=== PATIENT | female | born 1940 | race Caucasian/White ===

== ENCOUNTER 2017-01-20 09:33 | Inpatient (IN) | payer MEDICARE ==
[2017-01-20] MEDS ORDERED: Acetaminophen TAB* 325 MG ONE (10:19)
[2017-01-20] MEDS ORDERED: Acetaminophen TAB* 325 MG PO ONE (10:19)
--- NOTE | 2017-01-20 11:07 | RAD ---
INDICATION: Head injury. COMPARISON: Comparison is made with a prior CT of the brain from September 04, 2016. TECHNIQUE: Contiguous axial sections of the brain were obtained from the skull base to the vertex without contrast. FINDINGS: The ventricles, cisterns and sulci are enlarged consistent with diffuse atrophy. There is an old lacunar infarct present in the left periventricular white matter adjacent to the body of the ventricle which is new from the prior exam. There are small areas of decreased attenuation present in the subcortical and periventricular white matter most consistent with mild chronic small vessel ischemic changes. No other focal abnormality is seen. There is no evidence for hemorrhage. There is soft tissue swelling in the scalp adjacent to the posterior right frontal bone. No fracture is seen. The visualized portion of the paranasal sinuses and mastoid air cells appear clear. IMPRESSION: 1. NO EVIDENCE FOR ACUTE INTRACRANIAL ABNORMALITY. 2. OLD LACUNAR INFARCT AND MILD CHRONIC SMALL VESSEL ISCHEMIC CHANGES.
--- NOTE | 2017-01-20 11:14 | RAD ---
INDICATION: Pain post fall. Cervical spine cleared clinically. COMPARISON: September 04, 2016 CT TECHNIQUE: Multidetector CT images foramen magnum to lung apices without contrast. Multiplanar reformation. REPORT: Mild kyphosis from C2 through C6 without change compared with the prior exam. 1.5 mm degenerative retrolisthesis at C5-C6 without change. Negative for facet subluxation at any level. Negative for vertebral body or posterior element fracture at any level. Negative for paravertebral hematoma. At C5-C6 there is a small to moderate dorsal disc osteophyte complex which results in mild acquired central canal stenosis without gross change. Uncinate process spurring and facet joint osteoarthritis results in moderate LEFT foraminal stenosis without change. IMPRESSION: Negative for traumatic cervical spine injury.
--- NOTE | 2017-01-20 12:15 | RAD ---
Indication: Right hip pain after fall. 2 views of the right hip and an AP view of the pelvis demonstrates a subcapital fracture of the right femur. There is impaction noted. IMPRESSION: Subcapital fracture of the right hip with impaction.
[2017-01-20 12:49] LABS: Urine Bilirubin Negative (Negative); Urine Glucose Negative (Negative); Urine Nitrite Negative (Negative)
[2017-01-20] MEDS ORDERED: Morphine INJ* 4 MG/ML 1 ML SYRINGE IV ONE (12:50)
[2017-01-20] MEDS ORDERED: Ondansetron INJ* 2 MG/ML VIAL IV ONE (12:50)
--- NOTE | 2017-01-20 13:01 | RAD ---
Indication: RIGHT hip fracture. Comparison: September 04, 2016 Technique: Supine AP 1250 hours Report: Elevated lung volumes and rarefaction of the interstitial markings. Bilateral nipple shadows noted. No focal pulmonary lesion, alveolar consolidation, pleural effusion, pneumothorax. The heart, pulmonary vasculature, and mediastinal contours are unremarkable. IMPRESSION: Stigmata of chronic obstructive pulmonary disease and emphysema. No evidence for acute intrathoracic disease.
[2017-01-20] MEDS: NS 0.9% 1000 ML* 1,000 ML IV SCH ×2 (13:08→16:38)
[2017-01-20 13:15] LABS: Hematocrit 27 % (35-47); Hemoglobin 9.6 g/dl (12.0-16.0); Mean Corpuscular HGB Conc 36 g/dl (31-36); Mean Corpuscular Hemoglobin 35 pg (27-31); Mean Corpuscular Volume 99 fL (80-97); Mean Platelet Volume 7 um3 (7.4-10.4); Red Blood Count 2.73 10^6/ul (4.0-5.4); Red Cell Distribution Width 18 % (10.5-15)
[2017-01-20 13:31] LABS: ALT 17 U/L (7-52); AST 18 U/L (13-39); Alkaline Phosphatase 82 U/L (34-104); Anion Gap 7 mmol/L (2-11); BUN/Creatinine Ratio 22.6 (8-20); Blood Urea Nitrogen 12 mg/dL (6-24); CO2 Carbon Dioxide 28 mmol/L (22-32); Calcium 9.4 mg/dL (8.6-10.3); Chloride 102 mmol/L (101-111); EGFR African American 144.6 (>60); EGFR Non-African American 112.5 (>60); Globulin 2.9 g/dL (2-4); Glucose 98 mg/dL (70-100); Potassium 3.7 mmol/L (3.5-5.0); Sodium 137 mmol/L (133-145); Total Protein 6.9 g/dL (6.4-8.9)
--- NOTE | 2017-01-20 13:57 | ED ---
Ronal Hernandez Billy, scribed for Tal Mcclendon MD on 01/20/17 at 1008 . Lower Extremity - HPI Summary HPI Summary: Patient is a 76 year-old female coming to [facility] for evaluation of a fall this morning at 0845. Patient was walking when she lost balance; denies any LOC or syncope. 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 She has had multiple recent falls in the last several days. Patient at this time complains of right hip pain, but has no pain at rest. Pain is worse with movement. She also hit her right forehead on the floor. - History of Current Complaint Chief Complaint: EDExtremityLower Stated Complaint: FALL HIP PAIN Time Seen by Provider: 01/20/17 09:42 Hx Obtained From: Patient Mechanism Of Injury: Fall From A Standing Position Onset of Pain: Immediate Onset/Duration: Hours Severity Initially: Moderate Severity Currently: Moderate Timing: Constant Location: Is Discrete @ - right hip Associated Signs And Symptoms: Positive: Negative Aggravating Factor(s): Movement Alleviating Factor(s): Rest - Allergies/Home Medications Allergies/Adverse Reactions: Allergies Allergy/AdvReac Type Severity Reaction Status Date / Time No Known Allergies Allergy Verified 01/20/17 10:32 Home Medications: Home Medications Aspirin EC Low Dose* [Ecotrin EC Low Dose 81 MG*] 1 tab PO .EVERY EVENING [History Confirmed 01/20/17] Atorvastatin* [Lipitor 80 MG*] 1 tab PO . EVERY EVENING 01/20/17 [History Confirmed 01/20/17] Enalapril TAB* [Vasotec TAB*] 2.5 mg PO DAILY 01/20/17 [History Confirmed ] Hydroxychloroquine TAB* [Plaquenil TAB*] 1 tab PO BID 01/20/17 [History Confirmed 01/20/17] Methylphenidate TAB* [Ritalin TAB*] 2.5 mg PO BID 01/20/17 [History Confirmed ] PARoxetine HCL TAB* [Paxil TAB*] 1 tab PO DAILY 01/20/17 [History Confirmed 02/02] Ranitidine TAB (NF) [Zantac TAB (NF)] 1 tab PO DAILY 01/20/17 [History Confirmed 01/20/17] PMH/Surg Hx/FS Hx/Imm Hx Endocrine/Hematology History: Reports: Hx Blood Transfusions - 2000, possibly Denies: Hx Diabetes Cardiovascular History: Reports: Hx Hypertension Denies: Hx Pacemaker/ICD Respiratory History: Denies: Hx Asthma, Hx Chronic Obstructive Pulmonary Disease (COPD) History: Denies: Hx Renal Disease Sensory History: Reports: Hx Cataracts, Hx Contacts or Glasses, Hx Deafness - unknown which ear Denies: Hx Glaucoma, Hx Hearing Aid Opthamlomology History: Reports: Hx Cataracts, Hx Contacts or Glasses Denies: Hx Glaucoma Neurological History: Reports: Hx Headaches, Hx Peripheral Neuropathy, Hx Transient Ischemic Attacks (TIA), Other Neuro Impairments/Disorders - Ruptured aneurysm Psychiatric History: Reports: Hx Depression Denies: Hx Panic Disorder - Cancer History Cancer Type, Location and Year: Basal cell carcinoma several over the years Hx Chemotherapy: No Hx Radiation Therapy: No - Surgical History Surgery Procedure, Year, and Place: peg tube placed 2000 r/t stroke. CATARACTS. LEFT ELBOW FRACTURE Hx Anesthesia Reactions: No Infectious Disease History: Reports: Hx Tuberculosis - as a child Denies: Traveled Outside the [place] in Last 30 Days - Family History Known Family History: Positive: Cardiac Disease - Social History Alcohol Use: Daily Alcohol Amount: every night-2-3 glasses wine Substance Use Type: Reports: None Smoking Status (MU): Former Smoker Type: Cigarettes Have You Smoked in the Last Year: No Review of Systems Positive: Arthralgia Positive: Weakness All Other Systems Reviewed And Are Negative: Yes Physical Exam Triage Information Reviewed: Yes Vital Signs On Initial Exam: Initial Vitals Temp Pulse Resp BP Pulse Ox 99.9 F 77 16 180/105 98 01/20/17 09:52 01/20/17 09:52 01/20/17 09:52 01/20/17 09:52 01/20/17 09:52 Vital Signs Reviewed: Yes Appearance: Positive: Well-Appearing, No Pain Distress Skin: Positive: Warm, Skin Color Reflects Adequate Perfusion, Dry Head/Face: Positive: Other - Ecchymosis and swelling of the right church. Eyes: Positive: EOMI, MOON ENT: Positive: Normal ENT inspection Neck: Positive: Supple, Nontender Respiratory/Lung Sounds: Positive: Clear to Auscultation, Breath Sounds Present Cardiovascular: Positive: RRR Abdomen Description: Positive: Nontender, Soft Musculoskeletal: Positive: Pain @ - There is ecchymosis of the right hip. It is firm and tender to touch, but she is able to move all extremities., Other - Chronic right-sided motor weakness which the patient states is secondary to CVA in August 2016. Right arm is mildly contracted. Neurological: Positive: Sensory/Motor Intact, Alert, Oriented to Person Place, Time Psychiatric: Positive: Affect/Mood Appropriate Diagnostics - Vital Signs Vital Signs Temp Pulse Resp BP Pulse Ox 01/20/17 09:52 99.9 F 77 16 180/105 98 - Laboratory Lab Results: Lab Results 01/20/17 01/20/17 01/20/17 Range/Units 10:26 12:58 12:58 WBC 8.0 (3.5-10.8) 10^3/ul RBC 2.73 L (4.0-5.4) 10^6/ul Hgb 9.6 L (12.0-16.0) g/dl Hct 27 L (35-47) % MCV 99 H (80-97) fL MCH 35 H (27-31) pg MCHC 36 (31-36) g/dl RDW 18 H (10.5-15) % Plt Count 143 L (150-450) 10^3/ul MPV 7 L (7.4-10.4) um3 Neut % (Auto) 82.2 (38-83) % Lymph % (Auto) 8.8 L (25-47) % [place] % (Auto) 8.6 (1-9) % Eos % (Auto) 0.1 (0-6) % Baso % (Auto) 0.3 (0-2) % Absolute Neuts (auto) 6.6 (1.5-7.7) 10^3/ul Absolute Lymphs (auto) 0.7 L (1.0-4.8) 10^3/ul Absolute Monos (auto) 0.7 (0-0.8) 10^3/ul Absolute Eos (auto) 0 (0-0.6) 10^3/ul Absolute Basos (auto) 0 (0-0.2) 10^3/ul Absolute Nucleated RBC 0.01 10^3/ul Nucleated RBC % 0.1 INR (Anticoag Therapy) 0.97 (0.89-1.11) APTT 25.5 L (26.0-36.3) seconds Sodium (133-145) mmol/L Potassium (3.5-5.0) mmol/L Chloride (101-111) mmol/L Carbon Dioxide (22-32) mmol/L Anion Gap (2-11) mmol/L BUN (6-24) mg/dL Creatinine (0.51-0.95) mg/dL Est GFR ( Amer) (>60) Est GFR (Non-Af Amer) (>60) BUN/Creatinine Ratio (8-20) Glucose (70-100) mg/dL Calcium (8.6-10.3) mg/dL Total Bilirubin (0.2-1.0) mg/dL AST (13-39) U/L ALT (7-52) U/L Alkaline Phosphatase (34-104) U/L Total Protein (6.4-8.9) g/dL Albumin (3.2-5.2) g/dL Globulin (2-4) g/dL Albumin/Globulin Ratio (1-3) Urine Color Yellow Urine Appearance Clear Urine pH 6.0 (5-9) Ur Specific [place] 1.014 (1.010-1.030) Urine Protein Negative (Negative) Urine Ketones Negative (Negative) Urine Blood Negative (Negative) Urine Nitrate Negative (Negative) Urine Bilirubin Negative (Negative) Urine Urobilinogen Negative (Negative) Ur Leukocyte Esterase Negative (Negative) Urine Glucose Negative (Negative) Blood Type Antibody Screen 01/20/17 01/20/17 Range/Units 12:58 12:58 WBC (3.5-10.8) 10^3/ul RBC (4.0-5.4) 10^6/ul Hgb (12.0-16.0) g/dl Hct (35-47) % MCV (80-97) fL MCH (27-31) pg MCHC (31-36) g/dl RDW (10.5-15) % Plt Count (150-450) 10^3/ul MPV (7.4-10.4) um3 Neut % (Auto) (38-83) % Lymph % (Auto) (25-47) % [place] % (Auto) (1-9) % Eos % (Auto) (0-6) % Baso % (Auto) (0-2) % Absolute Neuts (auto) (1.5-7.7) 10^3/ul Absolute Lymphs (auto) (1.0-4.8) 10^3/ul Absolute Monos (auto) (0-0.8) 10^3/ul Absolute Eos (auto) (0-0.6) 10^3/ul Absolute Basos (auto) (0-0.2) 10^3/ul Absolute Nucleated RBC 10^3/ul Nucleated RBC % INR (Anticoag Therapy) (0.89-1.11) APTT (26.0-36.3) seconds Sodium 137 (133-145) mmol/L Potassium 3.7 (3.5-5.0) mmol/L Chloride 102 (101-111) mmol/L Carbon Dioxide 28 (22-32) mmol/L Anion Gap 7 (2-11) mmol/L BUN 12 (6-24) mg/dL Creatinine 0.53 (0.51-0.95) mg/dL Est GFR ( Amer) 144.6 (>60) Est GFR (Non-Af Amer) 112.5 (>60) BUN/Creatinine Ratio 22.6 H (8-20) Glucose 98 (70-100) mg/dL Calcium 9.4 (8.6-10.3) mg/dL Total Bilirubin 1.10 H (0.2-1.0) mg/dL AST 18 (13-39) U/L ALT 17 (7-52) U/L Alkaline Phosphatase 82 (34-104) U/L Total Protein 6.9 (6.4-8.9) g/dL Albumin 4.0 (3.2-5.2) g/dL Globulin 2.9 (2-4) g/dL Albumin/Globulin Ratio 1.4 (1-3) Urine Color Urine Appearance Urine pH (5-9) Ur Specific [place] (1.010-1.030) Urine Protein (Negative) Urine Ketones (Negative) Urine Blood (Negative) Urine Nitrate (Negative) Urine Bilirubin (Negative) Urine Urobilinogen (Negative) Ur Leukocyte Esterase (Negative) Urine Glucose (Negative) Blood Type B Positive Antibody Screen Negative Result Diagrams: 01/20/17 12:58 01/20/17 12:58 Lab Statement: Any lab studies that have been ordered have been reviewed, and results considered in the medical decision making process. - Radiology Right Hip XRay Radiology Interpretation Completed By: Radiologist - Subcapital fracture of the right hip with impaction. CXR Radiology Interpretation Completed By: Radiologist - Stigmata of chronic obstructive pulmonary disease and emphysema. No evidence for acute intrathoracic disease. - CT C-spine CT Interpretation: No Acute Changes CT Interpretation Completed By: Radiologist Brain CT Interpretation: No Acute Changes CT Interpretation Completed By: Radiologist - EKG 1240 EKG Interpretation: NSR 84 bpm, no ectopy, non-specific T-wave abnormalities Re-Evaluation - Re-Evaluation First Eval Re-Evaluation Time: 12:38 Comment: Labs and imaging reviewed. Patient requests [facility] because she has worked with them before. Lower Extremity Course/Dx - Course Course Of Treatment: Patient requests [facility] because she has worked with them before. NO CRITICAL CARE TIME. Assessment/Plan: DISCUSSED WITH DR HATHAWAY. ADMIT HOSPITALIST STABLE. - Diagnoses Provider Diagnoses: Hip fracture, right - Physician Notifications Discussed Care of Patient With: Dr. Blanca (hospitalist) @ 1259: accepts admission. Dr. Hathaway (orthopedics) @ 1316: case discussed. Discharge - Discharge Plan Condition: Stable Disposition: ADMITTED TO [facility] Referrals: Bina Bauer MD [Primary Care Provider] - The documentation as recorded by the Ronal britt Billy accurately reflects the service I personally performed and the decisions made by me, Tal Mcclendon MD.
[2017-01-20] MEDS ORDERED: Ondansetron INJ* 2 MG/ML VIAL IV PRN (14:06)
[2017-01-20 14:51] LABS: Iron 66 ug/dL (50-212); Total Iron Binding Capacity 305 mcg/dL (250-450); Transferrin 218 mg/dL (203-362)
[2017-01-20 15:09] LABS: Ferritin 199.5 ng/mL (11-307)
[2017-01-20 15:13] LABS: Folate > 20.00 ng/mL (>3.99)
[2017-01-20 15:14] LABS: Vitamin B12 1384 pg/mL (180-914)
[2017-01-20] MEDS: Morphine INJ* 2 MG/ML 1 ML SYRINGE IV PRN ×2 (16:33→19:37)
[2017-01-20] MEDS: Acetaminophen TAB* 325 MG PO PRN (16:38)
[2017-01-20] MEDS: HYDROcodone/ACETAMIN 5-325 MG* 1 TAB PO PRN (17:23)
[2017-01-20] MEDS: Atorvastatin* 80 MG TAB PO SCH (18:45)
[2017-01-20] MEDS: Aspirin EC Low Dose* 81 MG TAB.EC PO SCH (18:45)
[2017-01-20 19:10] LABS: Hematocrit 24 % (35-47); Hemoglobin 8.5 g/dl (12.0-16.0)
[2017-01-20] MEDS: Diazepam TAB(*) 2 MG PO PRN (20:38)
[2017-01-20] MEDS: Hydroxychloroquine TAB* 200 MG PO SCH (20:38)
--- NOTE | 2017-01-20 21:57 | HP ---
HISTORY AND PHYSICAL: DATE OF ADMISSION: 01/20/17 PRIMARY CARE PROVIDER: Bina Bauer MD ATTENDING PHYSICIAN WHILE IN THE HOSPITAL: Dr. Aurelia Cueto *(report dictated by Alex Wilson NP). CHIEF COMPLAINT: Fall. HISTORY OF PRESENTING ILLNESS: Mrs. Beaulieu is a 76-year-old female patient that comes into the ER today with complaints of a fall. She in August had a CVA with residual left-sided hemiparesis who came in today, says that she was standing up at her kitchen, she went to go get a soda, she was leaning forward towards her kitchen sink to help guide her and while she was leaning forward, she fell. She does not remember the fall, but she remembers landing on her hip and hitting her head. She feels that she was not dizzy before or after. She denied any chest pain prior to or after. She states that with physical therapy , she is walking 100 feet with a cane. She is not having any chest pain or shortness of breath. She said a week ago, she had URI symptoms, but she has not had anymore cough, has not had anymore shortness of breath or anymore fevers. She said she has been doing well. She recently was just discharged from [facility] from the rehab facility there and unfortunately, had a setback today where she fell. She immediately knew something was wrong. She did not have any loss of consciousness again. She had pain in the right hip and because of this, came into the hospital, and ultimately found to have a hip fracture. Hospitalist service was asked to evaluate for admission. PAST MEDICAL HISTORY: Significant for: 1. Subarachnoid hemorrhage in 2000. 2. Hypertension. 3. Depression. 4. TIA. 5. GERD. 6. History of CVA. 7. Basal cell cancer. 8. Eosinophilic fasciitis. PAST SURGICAL HISTORY: She has had a right elbow repair from fracture. HOME MEDICATIONS: Include: 1. Plaquenil 1 tablet p.o. daily. 2. Vasotec 2.5 mg daily. 3. Ritalin 2.5 mg p.o. b.i.d. 4. Lipitor 1 tablet p.o. every evening. 5. Paxil 1 tablet p.o. daily. 6. Zantac 1 tablet p.o. daily. 7. Aspirin 81 mg daily. ALLERGIES TO MEDICATIONS: Include no known drug allergies. FAMILY HISTORY: Both her parents had strokes. SOCIAL HISTORY: She is a former smoker. She does drink 2 glasses of wine daily , but she has not drank in some time ever since being in the snf. Surrogate decision maker is her daughter. REVIEW OF SYSTEMS: There is no documented fever. She denied having any significant weight change. There was no double vision. There is no ear discharge. She denies having any rhinorrhea. No sore throat. No thyroid enlargement. Denied having any chest pain or orthopnea. No nocturnal dyspnea. No rhinorrhea, no sore throat, no thyroid enlargement. Denied having chest pain, no orthopnea, no nocturnal dyspnea, no nausea, vomiting, no loss of consciousness, no pruritus, and no skin ulcerations. Review of 14 systems completed and all others were negative. PHYSICAL EXAMINATION GENERAL: At this time, Ms. Beaulieu is a 76-year-old female patient. She is sitting in the ER stretcher. She does not appear to be in any acute distress. VITAL SIGNS: Blood pressure 157/95 with a pulse of 94, respirations 18, O2 sat 94%, temperature 99.9. HEENT: Head: Atraumatic and normocephalic. She does have some ecchymosis to the right gnosticism. Eyes: EOMs intact. Sclerae anicteric. Throat: Oral mucosa appears to be dry. No oropharyngeal erythema. NECK: Supple. LUNGS: Clear to auscultation. No wheezes, rales or rhonchi. HEART: Heart sounds S1, S2. Regular rate and rhythm. No murmurs, rubs or gallops. ABDOMEN: Soft, flat, nontender. Bowel sounds present. EXTREMITIES: Pulses were 2+ throughout. Right upper extremity is hemiparetic. She is unable to be move this arm, this is her baseline. The right lower extremity has limited range of motion due to pain. The distal CSM checks are intact to that lower extremity on the right side. She has 5/5 strength on the left. NEUROLOGIC: She is awake, she is alert. Her speech is clear. She has a slight droop on the right side. She is hemiparetic on the right arm. It is difficult to assess the lower leg given the fact that this is the fractured leg and there is pain. She had no other gross focal deficits at this point. SKIN: Intact. She does have some ecchymosis to the right temporal. DIAGNOSTIC STUDIES/LAB DATA: Her labs today revealed WBC of 8.0, RBC of 2.73, hemoglobin 9.6, hematocrit of 27, and platelet count of 143. The INR was 0.97, PTT at 25.5. Sodium was 137, potassium 3.7, chloride 102, bicarb 28, BUN 12, creatinine 0.53, glucose 98, total bili 1.1, AST 18, ALT 17, albumin of 4.0. Urine was obtained, it was negative. She had multiple imaging here in the ED: Brain CT showed no evidence for acute intracranial abnormality, old lacunar infarct and mild chronic small vessel ischemic changes. She had a C-spine CT, negative for traumatic cervical spine injury. She had a hip x-ray, which showed subcapital fracture of the right hip with impaction. She had chest x-ray, which showed stigmata of COPD and emphysema. No evidence for acute intrathoracic disease. Recent echo in August showed an EF of 55% to 60%. EKG today shows a normal sinus rhythm with a rate of 84, no ST elevations or T- wave inversions. She had one depression in V4, but the T-wave inversions that were present on previous EKG are gone now, so this looks more of an improved EKG. Old medical records were reviewed. ASSESSMENT AND PLAN: Ms. Beaulieu is a 76-year-old female patient coming into the ER today with complaints of mechanical fall and now found to have right hip fracture. We were asked to evaluate for admission. She will be admitted under inpatient status for: 1. Right hip fracture. At this point, her RCRI is 1. She is not having any active cardiac symptoms. At this point, I think she is medically optimized for the OR. EKG looks stable. Echo was stable just 5 months ago. Chest x-ray looks stable. Her biggest risk of surgery is the recovery afterwards and as she is at risk for aspiration, I have ordered aspiration precaution and I have emphasized the importance of early ambulation to prevent postoperative pneumonia , deep vein thrombosis and other complications. So at this point, the ER did touch base with Dr. Hathaway and she will be evaluating the patient later today and we will continue with pain management. She will be on bed rest and I will order a Garcia catheter for her as well. 2. History of subarachnoid hemorrhage. We will follow. Not an active issue at this point. 3. Hypertension. She is on an KRISTY inhibitor. I am going to hold this, but her blood pressure is still high in the 150s. I am going to put her on Norvasc for the time being and then we will continue this throughout and she can probably restart this in the postoperative setting. 4. Depression. Continue meds as prescribed. 5. Recent cerebrovascular accident. Again, she has got hemiparesis on the right side particularly the right arm. She was doing well with physical therapy. She will most likely need rehab again after the hip procedure. We will need to get PT on board as soon as possible but for now the plan will be to continue with secondary prevention. She needs to be on her aspirin standing through the procedure. In addition to this, continue the Lipitor. She was on Ritalin as per the patient, this was started in the PMRU unit to help with rehabilitation. I am going to wean her off this as this is certainly not helping her blood pressure. We will go ahead and put it down to once a day. 6. Gastroesophageal reflux disease. Continue medication as prescribed. 7. Eosinophilic fasciitis. Continue her Plaquenil. 8. Anemia. Her H and H is down a little bit. Normally, she is right around 11. Her hemoglobin is 9.6 today. This could be dilutional. It could also be related to the recent trauma. I am going to trend these. I am going to send off iron studies and B12 and folate. We will monitor these to make sure they are stable. I am going to get a stool for occult, but there has been no report of tarry stools or blood. 9. DVT prophylaxis. She is high risk, we will place her on heparin subcu. In addition to this, we will also place her on SCDs. 10. Code status. She wished to be a DNR. 11. Fluid, electrolytes, and nutrition. She can have a heart healthy diet. TIME SPENT: Time spent on this admission was 60 minutes, greater than half the time was spent [id number] with the patient, obtaining my history of physical; the other half time was spent going over the plan of care with the patient and implementing the plan of care. I did discuss the plan of care with my attending, Dr. Cueto; she is in agreement. ALEX WILSON NP CC: Dr. Bauer; Dr. Hathaway* [id number]/CPS #: [id number] MTDD
--- NOTE | 2017-01-20 22:29 | RAD ---
Indication: Preoperative evaluation Comparison: Same day right hip x-ray Technique: 4 views right femur. Report: Again seen is an impacted fracture of the right femoral neck. The remainder of the femur appears to be intact. Degenerative changes at the right knee include joint space narrowing of the medial lateral compartments. IMPRESSION: Impacted fracture of the right femoral neck without identification of other fractures in the left thigh.
--- NOTE | 2017-01-21 00:53 | CONS ---
ORTHOPEDIC CONSULTATION NOTE: DATE OF CONSULTATION: 01/20/17 CHIEF COMPLAINT: Right hip pain. HISTORY OF PRESENT ILLNESS: Ms. Beaulieu is a 76-year-old female, who had a fall in her home earlier this morning. This was reportedly a mechanical fall to her right side. She immediately had 10/10 pain in the right hip. She had inability to ambulate. She was brought to [facility] and found to have a femoral neck fracture. The patient has significant past medical history for recent CVA with right- sided weakness. She was recently discharged from [facility] and has been walking with a four-pronged cane. 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 PAST SURGICAL HISTORY: None. CURRENT MEDICATIONS: 1. Lipitor. 2. Aspirin. 3. Norvasc. 4. Vasotec. 5. Subcu heparin. 6. Plaquenil. 7. Prilosec. 8. Paxil. Please see medicine note for doses. ALLERGIES: No known drug allergies. No known latex allergy. FAMILY HISTORY: None. SOCIAL HISTORY: The patient is a . Nonsmoker. Rare alcohol use. [facility]. She has a daughter, who lives in [place]. Has been ambulating with a rolling walker or four-pronged cane. REVIEW OF SYSTEMS: 14 systems were reviewed with the patient today. Positive for right hip pain, fall with also trauma to her forehead, right-sided contracture and weakness in her upper and lower extremity. Negative for fevers , chills, chest pain, shortness of breath. Otherwise, review of systems is negative or not relevant. PHYSICAL EXAM: Vitals: Temperature 100.1, pulse 85, blood pressure 128/72, respiratory rate 16, O2 saturation 92% on room air. General: The patient is a thin female, in obvious distress. She is in pain and crying. Her daughter is at the bedside. Alert and oriented x3. Gait is not assessed. Chest: Some labored breathing. Right lower extremity: The patient has a large ecchymosis along the lateral hip. She has tenderness to palpation and pain with motion of the hip. Distally, she reports full sensation to light touch and has a 2+ palpable DP pulse. She cannot move her ankle or toes. She reports this is her baseline. Right upper extremity is contracted. She cannot extend at the elbow or wrist. Her hand is clutched in a fist. 2+ palpable radial pulse. DIAGNOSTIC STUDIES/LABORATORY DATA: Radiographs: Multiple views of the right hip show a displaced femoral neck fracture of the right hip. ASSESSMENT AND PLAN: Ms. Beaulieu is a 76-year-old female status post fall with a displaced right femoral neck fracture. The patient, her daughter, and I discussed nonoperative and operative treatment options. Risks and benefits of these options were also discussed. The patient would like to proceed with surgery and be able to walk again. I would recommend a right hip hemiarthroplasty for this patient. It will give increased stability compared to a total hip arthroplasty and have shorter operative time. I do believe the patient is moderate to high risk because of the recent stroke and her multiple medical comorbidities. I have spoken to Alex Wilson, who feels we could tentatively set the surgery for 2 p.m. tomorrow on 01/21/17. The patient, her daughter, and I also discussed cannulated screw fixation. They wished to go with the hemiarthroplasty due to the risk of cannulated screw failure. Per nausea, be on p.r.n. pain medicine with Valium and cyclobenzaprine for muscle spasms. She is on bedrest. Medicine team is checking her hematocrit serially and for now, we will give her one unit of blood. I do feel the blood loss is likely from her hip. I will order femur films of her right femur. She will be n.p.o. after 6 a.m. tomorrow for tentative surgery at 2 p.m. Of course , we will not proceed unless she is medically optimized. [id number]/[facility] #: [id number] MTDD
[2017-01-21] MEDS: NS 0.9% 1000 ML* 1,000 ML IV SCH ×2 (01:20→08:10)
[2017-01-21 01:45] LABS: Hematocrit 29 % (35-47)
[2017-01-21] MEDS: HYDROcodone/ACETAMIN 5-325 MG* 1 TAB PO PRN ×2 (03:08→08:53)
[2017-01-21 06:56] LABS: Hematocrit 29 % (35-47); Hemoglobin 10.4 g/dl (12.0-16.0); Mean Corpuscular HGB Conc 36 g/dl (31-36); Mean Corpuscular Hemoglobin 35 pg (27-31); Mean Corpuscular Volume 98 fL (80-97); Mean Platelet Volume 7 um3 (7.4-10.4); Red Blood Count 2.96 10^6/ul (4.0-5.4); Red Cell Distribution Width 19 % (10.5-15); White Blood Count 5.7 10^3/ul (3.5-10.8)
[2017-01-21 07:14] LABS: BUN/Creatinine Ratio 18.2 (8-20); Calcium 8.5 mg/dL (8.6-10.3); EGFR African American 179.3 (>60); EGFR Non-African American 139.4 (>60); Potassium 3.6 mmol/L (3.5-5.0)
--- NOTE | 2017-01-21 07:46 | PN ---
Progress Note - Progress Note SOAP: Subjective: Pt. is alert, continues to have severe pain and spasms R hip. Objective: RLE - bruising and swelling R hip region, hip flexed to 60 degrees, distally intact sens lt, 2+ dp pulse, baseline lack of df/pf, ehl Vital Signs: Temp Pulse Resp BP Pulse Ox 97.7 F 80 18 156/90 96 01/21/17 03:29 01/21/17 03:29 01/21/17 05:08 01/21/17 03:29 01/21/17 03:29 Laboratory Results - last 24 hr 01/20/17 01/20/17 01/20/17 10:26 12:58 12:58 WBC 8.0 RBC 2.73 L Hgb 9.6 L Hct 27 L MCV 99 H MCH 35 H MCHC 36 RDW 18 H Plt Count 143 L MPV 7 L Neut % (Auto) 82.2 Lymph % (Auto) 8.8 L [place] % (Auto) 8.6 Eos % (Auto) 0.1 Baso % (Auto) 0.3 Absolute Neuts (auto) 6.6 Absolute Lymphs (auto) 0.7 L Absolute Monos (auto) 0.7 Absolute Eos (auto) 0 Absolute Basos (auto) 0 Absolute Nucleated RBC 0.01 Nucleated RBC % 0.1 INR (Anticoag Therapy) 0.97 APTT 25.5 L Sodium Potassium Chloride Carbon Dioxide Anion Gap BUN Creatinine Est GFR ( Amer) Est GFR (Non-Af Amer) BUN/Creatinine Ratio Glucose Calcium Iron TIBC % Saturation Unsat Iron Binding Ferritin Total Bilirubin AST ALT Alkaline Phosphatase Total Protein Albumin Globulin Albumin/Globulin Ratio Vitamin B12 Folate Urine Color Yellow Urine Appearance Clear Urine pH 6.0 Ur Specific [place] 1.014 Urine Protein Negative Urine Ketones Negative Urine Blood Negative Urine Nitrate Negative Urine Bilirubin Negative Urine Urobilinogen Negative Ur Leukocyte Esterase Negative Urine Glucose Negative Blood Type Antibody Screen Crossmatch Transfusion React Rpt Donor Unit # Post-Trans Blood Type Post-Trans JANAE 01/20/17 01/20/17 01/20/17 12:58 12:58 18:55 WBC RBC Hgb 8.5 L Hct 24 L MCV MCH MCHC RDW Plt Count MPV Neut % (Auto) Lymph % (Auto) [place] % (Auto) Eos % (Auto) Baso % (Auto) Absolute Neuts (auto) Absolute Lymphs (auto) Absolute Monos (auto) Absolute Eos (auto) Absolute Basos (auto) Absolute Nucleated RBC Nucleated RBC % INR (Anticoag Therapy) APTT Sodium 137 Potassium 3.7 Chloride 102 Carbon Dioxide 28 Anion Gap 7 BUN 12 Creatinine 0.53 Est GFR ( Amer) 144.6 Est GFR (Non-Af Amer) 112.5 BUN/Creatinine Ratio 22.6 H Glucose 98 Calcium 9.4 Iron 66 TIBC 305 % Saturation 22 Unsat Iron Binding 239 Ferritin 199.5 Total Bilirubin 1.10 H AST 18 ALT 17 Alkaline Phosphatase 82 Total Protein 6.9 Albumin 4.0 Globulin 2.9 Albumin/Globulin Ratio 1.4 Vitamin B12 1384 H Folate > 20.00 Urine Color Urine Appearance Urine pH Ur Specific [place] Urine Protein Urine Ketones Urine Blood Urine Nitrate Urine Bilirubin Urine Urobilinogen Ur Leukocyte Esterase Urine Glucose Blood Type B Positive Antibody Screen Negative Crossmatch See Detail Transfusion React Rpt Donor Unit # Post-Trans Blood Type Post-Trans JANAE 01/21/17 01/21/17 01/21/17 01:21 01:33 06:31 WBC RBC Hgb 10.0 L Hct 29 L MCV MCH MCHC RDW Plt Count MPV Neut % (Auto) Lymph % (Auto) [place] % (Auto) Eos % (Auto) Baso % (Auto) Absolute Neuts (auto) Absolute Lymphs (auto) Absolute Monos (auto) Absolute Eos (auto) Absolute Basos (auto) Absolute Nucleated RBC Nucleated RBC % INR (Anticoag Therapy) APTT Sodium 134 Potassium 3.6 Chloride 102 Carbon Dioxide 28 Anion Gap 4 BUN 8 Creatinine 0.44 L Est GFR ( Amer) 179.3 Est GFR (Non-Af Amer) 139.4 BUN/Creatinine Ratio 18.2 Glucose 107 H Calcium 8.5 L Iron TIBC % Saturation Unsat Iron Binding Ferritin Total Bilirubin AST ALT Alkaline Phosphatase Total Protein Albumin Globulin Albumin/Globulin Ratio Vitamin B12 Folate Urine Color Urine Appearance Urine pH Ur Specific [place] Urine Protein Urine Ketones Urine Blood Urine Nitrate Urine Bilirubin Urine Urobilinogen Ur Leukocyte Esterase Urine Glucose Blood Type Antibody Screen Crossmatch Transfusion React Rpt Donor Unit # [id number] Post-Trans Blood Type B Positive Post-Trans JANAE Negative 01/21/17 01/21/17 06:32 06:32 WBC 5.7 RBC 2.96 L Hgb 10.4 L Hct 29 L MCV 98 H MCH 35 H MCHC 36 RDW 19 H Plt Count 118 L MPV 7 L Neut % (Auto) 74.1 Lymph % (Auto) 12.5 L [place] % (Auto) 12.6 H Eos % (Auto) 0.1 Baso % (Auto) 0.7 Absolute Neuts (auto) 4.3 Absolute Lymphs (auto) 0.7 L Absolute Monos (auto) 0.7 Absolute Eos (auto) 0 Absolute Basos (auto) 0 Absolute Nucleated RBC 0 Nucleated RBC % 0.1 INR (Anticoag Therapy) 1.02 APTT Sodium Potassium Chloride Carbon Dioxide Anion Gap BUN Creatinine Est GFR ( Amer) Est GFR (Non-Af Amer) BUN/Creatinine Ratio Glucose Calcium Iron TIBC % Saturation Unsat Iron Binding Ferritin Total Bilirubin AST ALT Alkaline Phosphatase Total Protein Albumin Globulin Albumin/Globulin Ratio Vitamin B12 Folate Urine Color Urine Appearance Urine pH Ur Specific [place] Urine Protein Urine Ketones Urine Blood Urine Nitrate Urine Bilirubin Urine Urobilinogen Ur Leukocyte Esterase Urine Glucose Blood Type Antibody Screen Crossmatch Transfusion React Rpt Donor Unit # Post-Trans Blood Type Post-Trans JANAE Assessment: 76 yo F s/p fall with R displaced femoral neck fracture. Plan: bedrest with prn analgesics/mm relaxers npo plan R hip jorge today if medically optimized hct stable after 1 unit prbc
[2017-01-21] MEDS: PARoxetine HCL TAB* 40 MG PO SCH (08:10)
[2017-01-21] MEDS: Famotidine TAB* 20 MG PO SCH (08:10)
[2017-01-21] MEDS: Hydroxychloroquine TAB* 200 MG PO SCH ×2 (08:11→21:28)
[2017-01-21] MEDS: Methylphenidate TAB* 5 MG PO SCH (08:11)
[2017-01-21] MEDS ORDERED: Enalapril TAB* 5 MG PO SCH (09:00)
--- NOTE | 2017-01-21 09:06 | PN ---
Subjective Date of Service: 01/21/17 Interval History: Patient reports she is having 10/10 hip pain stating she is very uncomfortable. She reports she had been doing well at home. She denies hx of CAD, CHF, hx of NE. Denies ever having SOB or CP. No recent fever, chills, cough. Objective Active Medications: Acetaminophen (Tylenol Tab*) 650 mg PO Q4H PRN PRN Reason: FEVER/PAIN Last Admin: 01/20/17 16:38 Dose: 650 mg Hydrocodone Bitart/Acetaminophen ([place] 5-325 Tab*) 1 tab PO Q6H PRN PRN Reason: PAIN Last Admin: 01/21/17 08:53 Dose: 1 tab Aspirin (Aspirin Ec Low Dose*) 81 mg PO QPM [facility] Last Admin: 01/20/17 18:45 Dose: 81 mg Atorvastatin Calcium (Lipitor*) 80 mg PO QPM [facility] Last Admin: 01/20/17 18:45 Dose: 80 mg Cyclobenzaprine HCl (Flexeril Tab*) 10 mg PO Q8H PRN PRN Reason: MUSCLE SPASMS Diazepam (Valium Tab(*)) 2 mg PO Q8H PRN PRN Reason: SPASMS - MUSCLE Last Admin: 01/20/17 20:38 Dose: 2 mg Famotidine (Pepcid Tab*) 20 mg PO DAILY [facility] PRN Reason: Protocol Last Admin: 01/21/17 08:10 Dose: 20 mg Hydroxychloroquine Sulfate (Plaquenil Tab*) 200 mg PO BID [facility] Last Admin: 01/21/17 08:11 Dose: 200 mg Sodium Chloride (Ns 0.9% 1000 Ml*) 1,000 mls @ 150 mls/hr IV PER RATE [facility] Last Admin: 01/21/17 01:20 Dose: 150 mls/hr Methylphenidate HCl (Ritalin Tab*) 2.5 mg PO DAILY [facility] Last Admin: 01/21/17 08:11 Dose: 2.5 mg Morphine Sulfate (Morphine Inj (Syringe)*) 2 mg IV Q4H PRN PRN Reason: PAIN - MILD Last Admin: 01/20/17 19:37 Dose: 2 mg Ondansetron HCl (Zofran Inj*) 4 mg IV Q6H PRN PRN Reason: NAUSEA Paroxetine HCl (Paxil Tab*) 40 mg PO DAILY [facility] Last Admin: 01/21/17 08:10 Dose: 40 mg Vital Signs 01/20/17 01/20/17 01/20/17 20:38 21:03 21:24 Temperature 98.3 F 98.2 F Pulse Rate 84 83 Respiratory 17 Rate Blood Pressure 108/70 125/73 (mmHg) O2 Sat by Pulse 91 91 Oximetry 01/20/17 01/21/17 01/21/17 22:38 00:29 03:08 Temperature 99.2 F Pulse Rate 76 Respiratory 18 18 18 Rate Blood Pressure 148/81 (mmHg) O2 Sat by Pulse 91 Oximetry 01/21/17 01/21/17 01/21/17 03:29 05:08 07:18 Temperature 97.7 F 98.0 F Pulse Rate 80 87 Respiratory 16 18 18 Rate Blood Pressure 156/90 153/93 (mmHg) O2 Sat by Pulse 96 96 Oximetry 01/21/17 08:53 Temperature Pulse Rate Respiratory 16 Rate Blood Pressure (mmHg) O2 Sat by Pulse Oximetry Oxygen Devices in Use Now: None Appearance: 76 yo female laying in bed A+O x3 appears to be in mild-moderate pain. Eyes: No Scleral Icterus, PERRLA Ears/Nose/Mouth/Throat: NL Teeth, Lips, Gums, Mucous Membranes Moist Neck: NL Appearance and Movements; NL JVP Respiratory: Symmetrical Chest Expansion and Respiratory Effort, Clear to Auscultation Cardiovascular: NL Sounds; No Murmurs; No JVD, RRR, No Edema Abdominal: NL Sounds; No Tenderness; No Distention Extremities: No Edema, No Clubbing, Cyanosis Skin: No Rash or Ulcers, No Nodules or Sclerosis, - - guarded with RLE - she is keeping her hip flex Neurological: Alert and Oriented x 3, NL Sensation Lines/Tubes/Other Access: Clean, Dry and Intact Peripheral IV Nutrition: - - NPO Result Diagrams: 01/21/17 06:32 01/21/17 06:31 Additional Lab and Data: Lab Results 01/20/17 01/20/17 01/20/17 Range/Units 10:26 12:58 12:58 WBC 8.0 (3.5-10.8) 10^3/ul RBC 2.73 L (4.0-5.4) 10^6/ul Hgb 9.6 L (12.0-16.0) g/dl Hct 27 L (35-47) % MCV 99 H (80-97) fL MCH 35 H (27-31) pg MCHC 36 (31-36) g/dl RDW 18 H (10.5-15) % Plt Count 143 L (150-450) 10^3/ul MPV 7 L (7.4-10.4) um3 Neut % (Auto) 82.2 (38-83) % Lymph % (Auto) 8.8 L (25-47) % [place] % (Auto) 8.6 (1-9) % Eos % (Auto) 0.1 (0-6) % Baso % (Auto) 0.3 (0-2) % Absolute Neuts (auto) 6.6 (1.5-7.7) 10^3/ul Absolute Lymphs (auto) 0.7 L (1.0-4.8) 10^3/ul Absolute Monos (auto) 0.7 (0-0.8) 10^3/ul Absolute Eos (auto) 0 (0-0.6) 10^3/ul Absolute Basos (auto) 0 (0-0.2) 10^3/ul Absolute Nucleated RBC 0.01 10^3/ul Nucleated RBC % 0.1 INR (Anticoag Therapy) 0.97 (0.89-1.11) APTT 25.5 L (26.0-36.3) seconds Sodium (133-145) mmol/L Potassium (3.5-5.0) mmol/L Chloride (101-111) mmol/L Carbon Dioxide (22-32) mmol/L Anion Gap (2-11) mmol/L BUN (6-24) mg/dL Creatinine (0.51-0.95) mg/dL Est GFR ( Amer) (>60) Est GFR (Non-Af Amer) (>60) BUN/Creatinine Ratio (8-20) Glucose (70-100) mg/dL Calcium (8.6-10.3) mg/dL Total Bilirubin (0.2-1.0) mg/dL AST (13-39) U/L ALT (7-52) U/L Alkaline Phosphatase (34-104) U/L Total Protein (6.4-8.9) g/dL Albumin (3.2-5.2) g/dL Globulin (2-4) g/dL Albumin/Globulin Ratio (1-3) Urine Color Yellow Urine Appearance Clear Urine pH 6.0 (5-9) Ur Specific [place] 1.014 (1.010-1.030) Urine Protein Negative (Negative) Urine Ketones Negative (Negative) Urine Blood Negative (Negative) Urine Nitrate Negative (Negative) Urine Bilirubin Negative (Negative) Urine Urobilinogen Negative (Negative) Ur Leukocyte Esterase Negative (Negative) Urine Glucose Negative (Negative) Blood Type Antibody Screen 01/20/17 01/20/17 Range/Units 12:58 12:58 WBC (3.5-10.8) 10^3/ul RBC (4.0-5.4) 10^6/ul Hgb (12.0-16.0) g/dl Hct (35-47) % MCV (80-97) fL MCH (27-31) pg MCHC (31-36) g/dl RDW (10.5-15) % Plt Count (150-450) 10^3/ul MPV (7.4-10.4) um3 Neut % (Auto) (38-83) % Lymph % (Auto) (25-47) % [place] % (Auto) (1-9) % Eos % (Auto) (0-6) % Baso % (Auto) (0-2) % Absolute Neuts (auto) (1.5-7.7) 10^3/ul Absolute Lymphs (auto) (1.0-4.8) 10^3/ul Absolute Monos (auto) (0-0.8) 10^3/ul Absolute Eos (auto) (0-0.6) 10^3/ul Absolute Basos (auto) (0-0.2) 10^3/ul Absolute Nucleated RBC 10^3/ul Nucleated RBC % INR (Anticoag Therapy) (0.89-1.11) APTT (26.0-36.3) seconds Sodium 137 (133-145) mmol/L Potassium 3.7 (3.5-5.0) mmol/L Chloride 102 (101-111) mmol/L Carbon Dioxide 28 (22-32) mmol/L Anion Gap 7 (2-11) mmol/L BUN 12 (6-24) mg/dL Creatinine 0.53 (0.51-0.95) mg/dL Est GFR ( Amer) 144.6 (>60) Est GFR (Non-Af Amer) 112.5 (>60) BUN/Creatinine Ratio 22.6 H (8-20) Glucose 98 (70-100) mg/dL Calcium 9.4 (8.6-10.3) mg/dL Total Bilirubin 1.10 H (0.2-1.0) mg/dL AST 18 (13-39) U/L ALT 17 (7-52) U/L Alkaline Phosphatase 82 (34-104) U/L Total Protein 6.9 (6.4-8.9) g/dL Albumin 4.0 (3.2-5.2) g/dL Globulin 2.9 (2-4) g/dL Albumin/Globulin Ratio 1.4 (1-3) Urine Color Urine Appearance Urine pH (5-9) Ur Specific [place] (1.010-1.030) Urine Protein (Negative) Urine Ketones (Negative) Urine Blood (Negative) Urine Nitrate (Negative) Urine Bilirubin (Negative) Urine Urobilinogen (Negative) Ur Leukocyte Esterase (Negative) Urine Glucose (Negative) Blood Type B Positive Antibody Screen Negative Microbiology and Other Data: Microbiology 01/21/17 01:21 Transfusion Reaction Gram Stain - Final Blood Bag Assess/Plan/Problems-Billing Assessment: Ms. Beaulieu is a 76 yo female with a PMH of HTN, CVA with residula left-sided hemiparesis, Subarachnoid hemorrhage (2000), GERD, who fell and suffered a right hip fracture. - Patient Problems (1) Closed right hip fracture Comment: - Consultation Dr. Hathaway- plan for OR today - Pre-op risk - RCRI score is 1 place her at a 0.9% of major cardiac event. No Hx of CAD and denies ever having symptoms of ischemia. - Patient EKG is stable compared to prior EKG, but please note she does have QTC prolongation stated on EKG but it is artifact, reviewed EKG with plating machine operator Dr. Smith. Last EKG in aug 2016 was in the setting of acute CVA. ECHO 08/2016 - EF 55%, moderate pulmonary HTN and is stable. In 2013 the patient underwent a cardiac nuc stress test during an admisison for TIA for noted ST depression and elevated troponin which placed her at low risk. - Patient is optimized to proceed with surgery without any further cardiac testing - Check EKG in am (2) CVA (cerebral infarction) Comment: 08/2016 - L MCA CVA on MRI - with residual right hemiparesis. Echo and Tele was unremarkable for cardioembolic source, but echo did show concentric LVH - and nature of stroke c/w hypertensive disease. CTA head/neck was negative for concerning findings. Continue ASA / Statin post-op (3) Depression Comment: Continue paxil. (4) Hypertension Comment: BP is moderately elevated. Continue Amlodipine. hold aceI for now (5) Eosinophilic fasciitis Comment: Skin in stable, nothing to do. Continue Plaquenil (6) DVT prophylaxis Comment: per ortho team - hold pre-op (7) DNR (do not resuscitate) Status and Disposition: Inpatient with right hip fracture plan for surgery today with Dr. Hathaway.
[2017-01-21] MEDS: Morphine INJ* 2 MG/ML 1 ML SYRINGE IV PRN (09:29)
[2017-01-21] MEDS ORDERED: NS 0.9% 1000 ML* 1,000 ML IV SCH (10:45)
[2017-01-21] MEDS ORDERED: Bupivacaine 0.5% SDV PF* 30 ML VIAL ONE (14:15)
[2017-01-21] MEDS ORDERED: ceFAZolin 2 GM PREMIX(*) 2 GM/50 ML BAG IVPB ONE ×2 (14:20→14:48)
[2017-01-21] MEDS ORDERED: fentaNYL* 50 MCG/ML 2 ML VIAL (100 MCG VIAL) ONE ×2 (15:14→16:13)
[2017-01-21] MEDS ORDERED: Ondansetron INJ* 2 MG/ML VIAL ONE (16:10)
[2017-01-21] MEDS ORDERED: Dexamethasone IV* 4 MG/ML 1 ML (4 MG) ONE (16:10)
[2017-01-21] MEDS ORDERED: Lidocaine 2% PF* 5 ML VIAL ONE (16:10)
[2017-01-21] MEDS ORDERED: Propofol* 10 MG/ML 20 ML BTL IV PUSH ONE (16:10)
[2017-01-21] MEDS ORDERED: Succinylcholine* 20 MG/ML 10 ML VIAL ONE (16:10)
[2017-01-21] MEDS ORDERED: Metoclopramide IV* 5 MG/ML 2 ML VIAL IV PRN (16:19)
[2017-01-21] MEDS ORDERED: HYDROmorphone* 1 MG/ML 1 ML SYR IV PRN (16:19)
[2017-01-21] MEDS ORDERED: Scopolamine 1.5 mg* PATCH TRANSDERM PRN (16:19)
[2017-01-21] MEDS ORDERED: Phenylephrine IV* 40 MCG/ML 10 ML SYRINGE ONE (16:28)
[2017-01-21] MEDS ORDERED: EPHEDrine (Pressors)* 50 MG/ML VIAL ONE (16:28)
[2017-01-21] MEDS ORDERED: Morphine INJ* 4 MG/ML 1 ML SYRINGE IV PRN (17:20)
[2017-01-21] MEDS ORDERED: Docusate CAP* 100 MG PO PRN (17:21)
--- NOTE | 2017-01-21 19:24 | RAD ---
INDICATION: Status post right hip arthroplasty TECHNIQUE: An AP view of the pelvis and 2 views of the right hip were obtained. FINDINGS: The right hip prosthesis is anatomically aligned in the AP and lateral views. There is no evidence of periprostatic fracture or loosening. Remaining visualized bones are intact and appropriately aligned. IMPRESSION: Anatomic alignment of right hip prosthesis.
[2017-01-21] MEDS: Aspirin EC Low Dose* 81 MG TAB.EC PO SCH (21:27)
[2017-01-21] MEDS: Magnesium Hydroxide LIQ* 30 ML UDC PO SCH (21:27)
[2017-01-21] MEDS: Atorvastatin* 80 MG TAB PO SCH (21:28)
[2017-01-21] MEDS: ceFAZolin 1 GM in Dextrose (*) 1 GM/50 ML BAG IVPB SCH (23:04)
[2017-01-22] MEDS: HYDROcodone/ACETAMIN 5-325 MG* 1 TAB PO PRN ×3 (00:20→20:15)
[2017-01-22] MEDS: NS 0.9% 1000 ML* 1,000 ML IV SCH ×2 (03:04→11:05)
[2017-01-22] MEDS: ceFAZolin 1 GM in Dextrose (*) 1 GM/50 ML BAG IVPB SCH ×2 (05:18→11:19)
[2017-01-22] MEDS: amLODIPine TAB* 5 MG PO SCH (09:05)
[2017-01-22] MEDS: PARoxetine HCL TAB* 40 MG PO SCH (09:05)
[2017-01-22] MEDS: Magnesium Hydroxide LIQ* 30 ML UDC PO SCH ×2 (09:05→20:17)
[2017-01-22] MEDS: Hydroxychloroquine TAB* 200 MG PO SCH ×2 (09:05→20:21)
[2017-01-22] MEDS: Famotidine TAB* 20 MG PO SCH (09:05)
[2017-01-22] MEDS: Methylphenidate TAB* 5 MG PO SCH (09:05)
--- NOTE | 2017-01-22 13:25 | PN ---
Subjective Date of Service: 01/22/17 Interval History: pt reports she is feeling better today with less pain. Denies sob or CP. No fevers or chills. Denies dizziness Objective Active Medications: Acetaminophen (Tylenol Tab*) 650 mg PO Q4H PRN PRN Reason: FEVER/PAIN Last Admin: 01/20/17 16:38 Dose: 650 mg Hydrocodone Bitart/Acetaminophen ([place] 5-325 Tab*) 1 tab PO Q6H PRN PRN Reason: PAIN Last Admin: 01/22/17 09:05 Dose: 1 tab Amlodipine Besylate (Norvasc Tab*) 5 mg PO DAILY [facility] Last Admin: 01/22/17 09:05 Dose: 5 mg Aspirin (Aspirin Ec Low Dose*) 81 mg PO QPM [facility] Last Admin: 01/21/17 21:27 Dose: 81 mg Atorvastatin Calcium (Lipitor*) 80 mg PO QPM [facility] Last Admin: 01/21/17 21:28 Dose: 80 mg Cyclobenzaprine HCl (Flexeril Tab*) 10 mg PO Q8H PRN PRN Reason: MUSCLE SPASMS Diazepam (Valium Tab(*)) 2 mg PO Q8H PRN PRN Reason: SPASMS - MUSCLE Last Admin: 01/20/17 20:38 Dose: 2 mg Docusate Sodium (Colace Cap*) 100 mg PO DAILY PRN PRN Reason: CONSTIPATION Famotidine (Pepcid Tab*) 20 mg PO DAILY [facility] PRN Reason: Protocol Last Admin: 01/22/17 09:05 Dose: 20 mg Hydroxychloroquine Sulfate (Plaquenil Tab*) 200 mg PO BID [facility] Last Admin: 01/22/17 09:05 Dose: 200 mg Sodium Chloride (Ns 0.9% 1000 Ml*) 1,000 mls @ 150 mls/hr IV PER RATE [facility] Last Admin: 01/22/17 03:04 Dose: 150 mls/hr Magnesium Hydroxide (Milk Of Magnesia Liq*) 30 ml PO BID [facility] Last Admin: 01/22/17 09:05 Dose: 30 ml Methylphenidate HCl (Ritalin Tab*) 2.5 mg PO DAILY [facility] Last Admin: 01/22/17 09:05 Dose: 2.5 mg Morphine Sulfate (Morphine Inj (Syringe)*) 4 mg IV Q4H PRN PRN Reason: PAIN Last Admin: 01/22/17 11:23 Dose: 4 mg Ondansetron HCl (Zofran Inj*) 4 mg IV Q6H PRN PRN Reason: NAUSEA Paroxetine HCl (Paxil Tab*) 40 mg PO DAILY [facility] Last Admin: 01/22/17 09:05 Dose: 40 mg Pharmacy Profile Note (Scopolomine Patch Remove*) 1 note PATCH OFF Q72H ONE Stop: 01/24/17 16:21 Vital Signs 01/22/17 01/22/17 01/22/17 02:06 02:20 03:42 Temperature 97.3 F 98.2 F Pulse Rate 83 85 Respiratory 14 14 14 Rate Blood Pressure 134/71 119/71 (mmHg) O2 Sat by Pulse 99 98 Oximetry 01/22/17 01/22/17 01/22/17 07:25 09:05 11:05 Temperature 97.8 F Pulse Rate 82 Respiratory 16 20 18 Rate Blood Pressure 137/71 (mmHg) O2 Sat by Pulse 98 Oximetry 01/22/17 01/22/17 11:23 12:23 Temperature Pulse Rate Respiratory 18 20 Rate Blood Pressure (mmHg) O2 Sat by Pulse Oximetry Oxygen Devices in Use Now: None Appearance: thin 76 yo female sitting up in a chair in NAD. A+O x3 Eyes: No Scleral Icterus, PERRLA Ears/Nose/Mouth/Throat: NL Teeth, Lips, Gums, Mucous Membranes Moist Neck: NL Appearance and Movements; NL JVP Respiratory: Symmetrical Chest Expansion and Respiratory Effort, Clear to Auscultation Cardiovascular: NL Sounds; No Murmurs; No JVD, RRR, No Edema Abdominal: NL Sounds; No Tenderness; No Distention Lymphatic: No Cervical Adenopathy Extremities: No Edema, No Clubbing, Cyanosis Skin: No Rash or Ulcers, No Nodules or Sclerosis Neurological: Alert and Oriented x 3, NL Sensation Lines/Tubes/Other Access: Clean, Dry and Intact Peripheral IV Nutrition: Taking PO's Result Diagrams: 01/22/17 15:23 01/21/17 06:31 Additional Lab and Data: Lab Results 01/20/17 01/20/17 01/20/17 Range/Units 10:26 12:58 12:58 WBC 8.0 (3.5-10.8) 10^3/ul RBC 2.73 L (4.0-5.4) 10^6/ul Hgb 9.6 L (12.0-16.0) g/dl Hct 27 L (35-47) % MCV 99 H (80-97) fL MCH 35 H (27-31) pg MCHC 36 (31-36) g/dl RDW 18 H (10.5-15) % Plt Count 143 L (150-450) 10^3/ul MPV 7 L (7.4-10.4) um3 Neut % (Auto) 82.2 (38-83) % Lymph % (Auto) 8.8 L (25-47) % [place] % (Auto) 8.6 (1-9) % Eos % (Auto) 0.1 (0-6) % Baso % (Auto) 0.3 (0-2) % Absolute Neuts (auto) 6.6 (1.5-7.7) 10^3/ul Absolute Lymphs (auto) 0.7 L (1.0-4.8) 10^3/ul Absolute Monos (auto) 0.7 (0-0.8) 10^3/ul Absolute Eos (auto) 0 (0-0.6) 10^3/ul Absolute Basos (auto) 0 (0-0.2) 10^3/ul Absolute Nucleated RBC 0.01 10^3/ul Nucleated RBC % 0.1 INR (Anticoag Therapy) 0.97 (0.89-1.11) APTT 25.5 L (26.0-36.3) seconds Sodium (133-145) mmol/L Potassium (3.5-5.0) mmol/L Chloride (101-111) mmol/L Carbon Dioxide (22-32) mmol/L Anion Gap (2-11) mmol/L BUN (6-24) mg/dL Creatinine (0.51-0.95) mg/dL Est GFR ( Amer) (>60) Est GFR (Non-Af Amer) (>60) BUN/Creatinine Ratio (8-20) Glucose (70-100) mg/dL Calcium (8.6-10.3) mg/dL Total Bilirubin (0.2-1.0) mg/dL AST (13-39) U/L ALT (7-52) U/L Alkaline Phosphatase (34-104) U/L Total Protein (6.4-8.9) g/dL Albumin (3.2-5.2) g/dL Globulin (2-4) g/dL Albumin/Globulin Ratio (1-3) Urine Color Yellow Urine Appearance Clear Urine pH 6.0 (5-9) Ur Specific [place] 1.014 (1.010-1.030) Urine Protein Negative (Negative) Urine Ketones Negative (Negative) Urine Blood Negative (Negative) Urine Nitrate Negative (Negative) Urine Bilirubin Negative (Negative) Urine Urobilinogen Negative (Negative) Ur Leukocyte Esterase Negative (Negative) Urine Glucose Negative (Negative) Blood Type Antibody Screen 01/20/17 01/20/17 Range/Units 12:58 12:58 WBC (3.5-10.8) 10^3/ul RBC (4.0-5.4) 10^6/ul Hgb (12.0-16.0) g/dl Hct (35-47) % MCV (80-97) fL MCH (27-31) pg MCHC (31-36) g/dl RDW (10.5-15) % Plt Count (150-450) 10^3/ul MPV (7.4-10.4) um3 Neut % (Auto) (38-83) % Lymph % (Auto) (25-47) % [place] % (Auto) (1-9) % Eos % (Auto) (0-6) % Baso % (Auto) (0-2) % Absolute Neuts (auto) (1.5-7.7) 10^3/ul Absolute Lymphs (auto) (1.0-4.8) 10^3/ul Absolute Monos (auto) (0-0.8) 10^3/ul Absolute Eos (auto) (0-0.6) 10^3/ul Absolute Basos (auto) (0-0.2) 10^3/ul Absolute Nucleated RBC 10^3/ul Nucleated RBC % INR (Anticoag Therapy) (0.89-1.11) APTT (26.0-36.3) seconds Sodium 137 (133-145) mmol/L Potassium 3.7 (3.5-5.0) mmol/L Chloride 102 (101-111) mmol/L Carbon Dioxide 28 (22-32) mmol/L Anion Gap 7 (2-11) mmol/L BUN 12 (6-24) mg/dL Creatinine 0.53 (0.51-0.95) mg/dL Est GFR ( Amer) 144.6 (>60) Est GFR (Non-Af Amer) 112.5 (>60) BUN/Creatinine Ratio 22.6 H (8-20) Glucose 98 (70-100) mg/dL Calcium 9.4 (8.6-10.3) mg/dL Total Bilirubin 1.10 H (0.2-1.0) mg/dL AST 18 (13-39) U/L ALT 17 (7-52) U/L Alkaline Phosphatase 82 (34-104) U/L Total Protein 6.9 (6.4-8.9) g/dL Albumin 4.0 (3.2-5.2) g/dL Globulin 2.9 (2-4) g/dL Albumin/Globulin Ratio 1.4 (1-3) Urine Color Urine Appearance Urine pH (5-9) Ur Specific [place] (1.010-1.030) Urine Protein (Negative) Urine Ketones (Negative) Urine Blood (Negative) Urine Nitrate (Negative) Urine Bilirubin (Negative) Urine Urobilinogen (Negative) Ur Leukocyte Esterase (Negative) Urine Glucose (Negative) Blood Type B Positive Antibody Screen Negative Microbiology and Other Data: Microbiology 01/21/17 01:21 Transfusion Reaction Gram Stain - Final Blood Bag Assess/Plan/Problems-Billing Assessment: Ms. Beaulieu is a 76 yo female with a PMH of HTN, CVA with residula left-sided hemiparesis, Subarachnoid hemorrhage (2000), GERD, who fell and suffered a right hip fracture. - Patient Problems (1) Closed right hip fracture Comment: - s/p right hemiarthroplasty for femoral neck fx, Dispo per Dr. Hathaway/Ortho Team - POD #1 - HH stable - Pain Management - bowel regimen - low u/o, continue IVFs x1 liter NS (2) CVA (cerebral infarction) Comment: 08/2016 - L MCA CVA on MRI - with residual right hemiparesis. Previous work-up was unremarkable for cardioembolic source, but echo did show concentric LVH - and nature of stroke c/w hypertensive disease. Continue ASA / Statin (3) Depression Comment: Continue paxil. Hold Ritalin for now in the post-op phase (4) Hypertension Comment: Controlled Continue home Amlodipine, restart enalapril in am (5) Eosinophilic fasciitis Comment: Skin in stable, nothing to do. Continue Plaquenil (6) DVT prophylaxis Comment: Lovenox SQ daily (7) DNR (do not resuscitate) Status and Disposition: Inpatient with right hip fracture after a mechanical fall now s/p . PMRU eval pending.
--- NOTE | 2017-01-22 15:24 | PN ---
Progress Note - Progress Note SOAP: Subjective: []Patient seen at bedside, alert and oriented. Pain well managed right hip. Objective: [] Vital Signs Temp 97.6 F 01/22/17 11:25 Pulse 84 01/22/17 11:25 Resp 20 01/22/17 12:23 BP 117/61 01/22/17 11:25 Pulse Ox 91 01/22/17 11:25 Intake & Output 01/21/17 01/22/17 01/22/17 18:59 06:59 18:59 Intake Total 913 1709 1530 Output Total 1175 350 150 Balance -262 1359 1380 Intake: IV Fluids 913 1459 1000 NS (0.9%) 213 1459 1000 lr 700 IVPB 50 ABX - CEFAZOLIN 50 Oral 0 200 530 Output: Urine 775 Garcia 100 350 150 Estimated Blood Loss 300 Laboratory Results - last 24 hr 01/20/17 01/21/17 12:58 01:21 Methylmalonic Acid 0.12 Transfusion React Rpt Reaction Interpretation Today H+H pending, ordered STAT Right hip dressing dry and intact unable to dorsiflex right ankle, baseline s/p CVA calf non tender and soft Assessment: []s/p Right hemiarthroplasty for femoral neck fracture POD #1 Plan: []Check H+H Consult medicine re: low urine output, fluids still running PT/OT WBAT right LE Lovenox for DVT prophylaxis PMRU consult
[2017-01-22 15:31] LABS: Hematocrit 23 % (35-47); Hemoglobin 8.3 g/dl (12.0-16.0); Mean Corpuscular HGB Conc 35 g/dl (31-36); Mean Corpuscular Hemoglobin 34 pg (27-31); Mean Corpuscular Volume 97 fL (80-97); Mean Platelet Volume 7 um3 (7.4-10.4); Red Cell Distribution Width 18 % (10.5-15)
[2017-01-22] MEDS ORDERED: NS 0.9% 1000 ML* 1,000 ML IV SCH ×2 (15:36→15:37)
[2017-01-22] MEDS: Enoxaparin(*) 30 MG/0.3 ML SYR SUBCUT SCH (16:00)
--- NOTE | 2017-01-22 17:34 | OP ---
DATE OF OPERATION: 01/21/17 - ROOM #349 DATE OF : 42 SURGEON: Luzma Hathaway MD VOICE COACH: JESSICA Pavon ANESTHESIOLOGIST: Dr. Tatum. ANESTHESIA: General. PRE-OP DIAGNOSIS: Displaced right femoral neck fracture. POST-OP DIAGNOSIS: Displaced right femoral neck fracture. OPERATIVE PROCEDURE: Right hip hemiarthroplasty. INDICATIONS: Ms. Beaulieu is a 76-year-old female, who had a fall in her home yesterday on 01/20/17. She immediately had pain in the right hip and inability to ambulate. She was brought to the [facility] and diagnosed with a displaced femoral neck fracture. I saw the patient and her family last evening. She was given different operative and nonoperative treatment options. She does have significant medical comorbidities including a stroke with right- sided weakness in August 2016. The patient elected to proceed with a right hip hemiarthroplasty. Informed consent was obtained from the patient and her family. They understood the risks of procedure included but were not limited to bleeding, infection, damage to nearby structures, continued pain, need for further surgery, intraoperative fracture, nerve palsy, hardware failure, loosening, leg length discrepancy, dislocation, stroke, heart attack, blood clot , and . They wished to proceed. HARDWARE USED: Albin uncemented hip hemiarthroplasty hardware was used. An Accolade TMZF size 3 stem with a 132-degree neck. For the head, a 47 bipolar with 28 -4 LFIT V40 femoral head. COMPLICATIONS: None. ESTIMATED BLOOD LOSS: 200 cc. SPECIMEN: Femoral head sent to Pathology. INTRAOPERATIVE FINDINGS: Intraoperatively, the patient was noted to have a large Simpson-Marla lesion with hematoma and subcutaneous fat degloving injury. She also had the noted displaced femoral neck fracture with significant comminution. DESCRIPTION OF PROCEDURE: Ms. Beaulieu was identified in the preanesthesia unit. Her right lower extremity was marked as the correct operative side. Informed consent was signed and placed in the chart. The patient was taken to the operating room and placed under general anesthesia without difficulty. A Garcia catheter was placed. She was placed in the left lateral decubitus position on the peg board. All bony prominences were well padded. Right lower extremity was prepped and draped in the usual sterile fashion. Preop time-out was made to correctly identify the patient's side and site. Appropriate perioperative antibiotics were given within 1 hour of incision. A 10-cm posterior hip incision was made with a 10-blade and carried down to the fascial layer. There was a large hematoma, which was in fact a Simpson-Marla lesion with degloving, and large hematoma in between the subcutaneous fat and lateral fascia. Lateral fascial layer was incised in line with the skin incision. A Charnley retractor was placed. The piriformis and conjoint tendons were identified. These were elevated off the posterolateral femur and tagged with two #5 Ethibond's. Next, a posterior capsular flap was carefully made with electrocautery and tagged with two #5 Ethibond's. Large amount of fracture hematoma was encountered. The hip was copiously irrigated with sterile saline. The hip was carefully dislocated and the displaced femoral head was removed carefully. There was a significant amount of comminution. Head was sized as a size 47. The ligamentum teres was carefully excised from the acetabulum. There were some mild degenerative changes of the acetabulum. The labrum was largely intact. 47 trial bipolar head was placed and had a good fit and suction. This was chosen as the final implant. After appropriate placement of retractor, the proximal femur was easily visualized. Oscillating saw was used to make the appropriate femoral neck cut. Any remaining soft tissue was carefully removed from the piriformis fossa. The canal was sequentially broached up to a size 3. Size 3 broach had satisfactory anteversion and stability. A 132-neck trial was placed as well as a 28 +0 head. Hip was reduced and taken through range of motion. The hip was stable in all positions. There was significant soft tissue tension; therefore, the hip was dislocated. A 28 -4 femoral head was chosen. Hip was reduced and taken through a range of motion. Soft tissue tension and leg lengths were appropriate. The hip was stable in all positions. The hip was carefully dislocated. All trials were carefully removed. Final implant chosen was an Accolade TMZF size 3 with a 132-degree neck. This was impacted into the femoral canal without difficulty. Stability of the stem was satisfactory as was anteversion. A 28 -4 LFIT V40 femoral head was chosen and impacted on to the femoral neck. A 47/28 bipolar component was then placed. The hip was carefully reduced. The hip was stable in all positions. Good soft tissue tension. The hip joint was copiously irrigated with sterile saline. Previously tagged tendons and capsule were reapproximated to the posterolateral femur through 2 trochanteric drill holes. Posterior capsule repair was excellent. Lateral fascial layer was reapproximated using interrupted #1 Vicryl's. The rest of the incision was closed in a layered fashion using 0 and 2-0 Vicryl's. The area of the Simpson-Marla lesion was carefully reapproximated and subcutaneous fat was tacked down in order to avoid any space. The skin was closed using running 3-0 Monocryl and Dermabond. Sterile Adaptic, 4x4s, and paper tape were used to cover the incision. The patient's anesthesia was reversed without difficulty. She was taken to the PACU in stable condition. Intended weightbearing will be weightbearing as tolerated with posterior hip precautions. Intended DVT prophylaxis will be per the medicine team's wishes. [id number]/[facility] #: [id number] DEBORAH
[2017-01-22] MEDS: Aspirin EC Low Dose* 81 MG TAB.EC PO SCH (18:20)
[2017-01-22] MEDS: Atorvastatin* 80 MG TAB PO SCH (18:20)
[2017-01-22] MEDS: Polyethylene Glycol 3350* 17 GM PACKET PO SCH (20:17)
[2017-01-23] MEDS: HYDROcodone/ACETAMIN 5-325 MG* 1 TAB PO PRN ×3 (02:26→14:23)
[2017-01-23 07:05] LABS: Hematocrit 21 % (35-47); Hemoglobin 7.4 g/dl (12.0-16.0); Mean Corpuscular HGB Conc 35 g/dl (31-36); Mean Corpuscular Hemoglobin 34 pg (27-31); Mean Corpuscular Volume 98 fL (80-97); Mean Platelet Volume 7 um3 (7.4-10.4); Red Blood Count 2.14 10^6/ul (4.0-5.4); Red Cell Distribution Width 19 % (10.5-15); White Blood Count 6.4 10^3/ul (3.5-10.8)
[2017-01-23 07:18] LABS: BUN/Creatinine Ratio 36.4 (8-20); Calcium 8.1 mg/dL (8.6-10.3); EGFR African American 249.9 (>60); EGFR Non-African American 194.3 (>60); Potassium 3.4 mmol/L (3.5-5.0)
[2017-01-23] MEDS: Magnesium Hydroxide LIQ* 30 ML UDC PO SCH ×2 (08:01→20:20)
[2017-01-23] MEDS: Hydroxychloroquine TAB* 200 MG PO SCH ×2 (08:32→20:25)
[2017-01-23] MEDS: Polyethylene Glycol 3350* 17 GM PACKET PO SCH ×2 (08:32→20:21)
[2017-01-23] MEDS: PARoxetine HCL TAB* 40 MG PO SCH (08:32)
[2017-01-23] MEDS: amLODIPine TAB* 5 MG PO SCH (08:33)
[2017-01-23] MEDS: Famotidine TAB* 20 MG PO SCH (08:33)
--- NOTE | 2017-01-23 08:57 | PN ---
Progress Note - Progress Note SOAP: Subjective: patient resting comfortably, pain controlled with PO meds Objective: Vital Signs Temp Pulse Resp BP Pulse Ox 97.8 F 95 18 101/68 93 01/23/17 03:43 01/23/17 03:43 01/23/17 08:33 01/23/17 03:43 01/23/17 03:43 Laboratory Last Values WBC 6.4 10^3/ul (3.5-10.8) 01/23/17 06:26 RBC 2.14 10^6/ul (4.0-5.4) L 01/23/17 06:26 Hgb 7.4 g/dl (12.0-16.0) L 01/23/17 06:26 Hct 21 % (35-47) L 01/23/17 06:26 MCV 98 fL (80-97) H 01/23/17 06:26 MCH 34 pg (27-31) H 01/23/17 06:26 MCHC 35 g/dl (31-36) 01/23/17 06:26 RDW 19 % (10.5-15) H 01/23/17 06:26 Plt Count 104 10^3/ul (150-450) L 01/23/17 06:26 MPV 7 um3 (7.4-10.4) L 01/23/17 06:26 Neut % (Auto) 70.1 % (38-83) 01/23/17 06:26 Lymph % (Auto) 13.9 % (25-47) L 01/23/17 06:26 [place] % (Auto) 15.1 % (1-9) H 01/23/17 06:26 Eos % (Auto) 0.3 % (0-6) 01/23/17 06:26 Baso % (Auto) 0.6 % (0-2) 01/23/17 06:26 Absolute Neuts (auto) 4.5 10^3/ul (1.5-7.7) 01/23/17 06:26 Absolute Lymphs (auto) 0.9 10^3/ul (1.0-4.8) L 01/23/17 06:26 Absolute Monos (auto) 1.0 10^3/ul (0-0.8) H 01/23/17 06:26 Absolute Eos (auto) 0 10^3/ul (0-0.6) 01/23/17 06:26 Absolute Basos (auto) 0 10^3/ul (0-0.2) 01/23/17 06:26 Absolute Nucleated RBC 0 10^3/ul 01/23/17 06:26 Nucleated RBC % 0 01/23/17 06:26 INR (Anticoag Therapy) 1.02 (0.89-1.11) 01/21/17 06:32 APTT 25.5 seconds (26.0-36.3) L 01/20/17 12:58 Sodium 136 mmol/L (133-145) 01/23/17 06:26 Potassium 3.4 mmol/L (3.5-5.0) L 01/23/17 06:26 Chloride 104 mmol/L (101-111) 01/23/17 06:26 Carbon Dioxide 29 mmol/L (22-32) 01/23/17 06:26 Anion Gap 3 mmol/L (2-11) 01/23/17 06:26 BUN 12 mg/dL (6-24) 01/23/17 06:26 Creatinine 0.33 mg/dL (0.51-0.95) L 01/23/17 06:26 Est GFR ( Amer) 249.9 (>60) 01/23/17 06:26 Est GFR (Non-Af Amer) 194.3 (>60) 01/23/17 06:26 BUN/Creatinine Ratio 36.4 (8-20) H 01/23/17 06:26 Glucose 110 mg/dL (70-100) H 01/23/17 06:26 Calcium 8.1 mg/dL (8.6-10.3) L 01/23/17 06:26 Iron 66 ug/dL (50-212) 01/20/17 12:58 TIBC 305 mcg/dL (250-450) 01/20/17 12:58 % Saturation 22 % (15-55) 01/20/17 12:58 Unsat Iron Binding 239 ug/dL 01/20/17 12:58 Transferrin 223 mg/dL (200 - 360) 01/20/17 12:58 Ferritin 199.5 ng/mL (11-307) 01/20/17 12:58 Total Bilirubin 1.10 mg/dL (0.2-1.0) H 01/20/17 12:58 AST 18 U/L (13-39) 01/20/17 12:58 ALT 17 U/L (7-52) 01/20/17 12:58 Alkaline Phosphatase 82 U/L (34-104) 01/20/17 12:58 Total Protein 6.9 g/dL (6.4-8.9) 01/20/17 12:58 Albumin 4.0 g/dL (3.2-5.2) 01/20/17 12:58 Globulin 2.9 g/dL (2-4) 01/20/17 12:58 Albumin/Globulin Ratio 1.4 (1-3) 01/20/17 12:58 Vitamin B12 1384 pg/mL (180-914) H 01/20/17 12:58 Methylmalonic Acid 0.12 nmol/mL (<=0.40) 01/20/17 12:58 Folate > 20.00 ng/mL (>3.99) 01/20/17 12:58 Urine Color Yellow 01/20/17 10:26 Urine Appearance Clear 01/20/17 10:26 Urine pH 6.0 (5-9) 01/20/17 10:26 Ur Specific [place] 1.014 (1.010-1.030) 01/20/17 10:26 Urine Protein Negative (Negative) 01/20/17 10:26 Urine Ketones Negative (Negative) 01/20/17 10:26 Urine Blood Negative (Negative) 01/20/17 10:26 Urine Nitrate Negative (Negative) 01/20/17 10:26 Urine Bilirubin Negative (Negative) 01/20/17 10:26 Urine Urobilinogen Negative (Negative) 01/20/17 10:26 Ur Leukocyte Esterase Negative (Negative) 01/20/17 10:26 Urine Glucose Negative (Negative) 01/20/17 10:26 Blood Type B Positive 01/20/17 12:58 Antibody Screen Negative 01/20/17 12:58 Crossmatch See Detail 01/20/17 12:58 Transfusion React Rpt 01/21/17 01:21 Donor Unit # [id number] 01/21/17 01:21 Post-Trans Blood Type B Positive 01/21/17 01:21 Post-Trans JANAE Negative 01/21/17 01:21 Reaction Interpretation 01/21/17 01:21 incision: c/d PE: right hemiparesis Assessment: s/p right hip jorge Plan: 1) Continue PT/OT 2) Medicine following 3) Lovenox for DVT prophylaxis 4) PMRU pending 5) Hct 21, will transfuse 2 units
[2017-01-23] MEDS ORDERED: Enalapril TAB* 5 MG PO SCH (09:00)
--- NOTE | 2017-01-23 13:46 | PN ---
Subjective Date of Service: 01/23/17 Interval History: Patient seen this afternoon. Seems a bit upset, says she is "miserable". Hip pain not too bothersome. Family History: Unchanged from Admission Social History: Unchanged from Admission Past Medical History: Unchanged from Admission Objective Active Medications: Acetaminophen (Tylenol Tab*) 650 mg PO Q4H PRN Hydrocodone Bitart/Acetaminophen ([place] 5-325 Tab*) 1 tab PO Q6H PRN Amlodipine Besylate (Norvasc Tab*) 5 mg PO DAILY [facility] Aspirin (Aspirin Ec Low Dose*) 81 mg PO QPM [facility] Atorvastatin Calcium (Lipitor*) 80 mg PO QPM [facility] Cyclobenzaprine HCl (Flexeril Tab*) 10 mg PO Q8H PRN Diazepam (Valium Tab(*)) 2 mg PO Q8H PRN Docusate Sodium (Colace Cap*) 100 mg PO DAILY PRN Enalapril Maleate (Vasotec Tab*) 2.5 mg PO DAILY [facility] Enoxaparin Sodium (Lovenox(*)) 30 mg SUBCUT Q24H [facility] Famotidine (Pepcid Tab*) 20 mg PO DAILY [facility] Hydroxychloroquine Sulfate (Plaquenil Tab*) 200 mg PO BID [facility] Magnesium Hydroxide (Milk Of Magnesia Liq*) 30 ml PO BID [facility] Morphine Sulfate (Morphine Inj (Syringe)*) 4 mg IV Q4H PRN Ondansetron HCl (Zofran Inj*) 4 mg IV Q6H PRN Paroxetine HCl (Paxil Tab*) 40 mg PO DAILY [facility] Pharmacy Profile Note (Scopolomine Patch Remove*) 1 note PATCH OFF Q72H ONE Polyethylene Glycol/Electrolytes (Miralax*) 17 gm PO 0800,2100 [facility] Vital Signs 01/22/17 01/22/17 01/22/17 15:33 16:00 19:35 Temperature 99.5 F 100.0 F Pulse Rate 92 93 Respiratory 18 16 Rate Blood Pressure 120/73 111/54 (mmHg) O2 Sat by Pulse 97 97 93 Oximetry 01/22/17 01/22/17 01/22/17 20:00 20:15 20:47 Temperature Pulse Rate Respiratory 17 16 Rate Blood Pressure (mmHg) O2 Sat by Pulse 97 Oximetry 01/22/17 01/22/17 01/23/17 22:15 23:29 02:26 Temperature 99.7 F Pulse Rate 98 Respiratory 16 18 16 Rate Blood Pressure 117/65 (mmHg) O2 Sat by Pulse 96 Oximetry 01/23/17 01/23/17 01/23/17 03:43 04:26 08:00 Temperature 97.8 F Pulse Rate 95 Respiratory 16 16 18 Rate Blood Pressure 101/68 (mmHg) O2 Sat by Pulse 93 93 Oximetry 01/23/17 01/23/17 01/23/17 08:10 08:33 10:28 Temperature 98.1 F Pulse Rate 90 Respiratory 18 18 18 Rate Blood Pressure 104/65 (mmHg) O2 Sat by Pulse 91 Oximetry 01/23/17 12:02 Temperature 99.2 F Pulse Rate 90 Respiratory 18 Rate Blood Pressure 96/58 (mmHg) O2 Sat by Pulse 98 Oximetry Oxygen Devices in Use Now: None Appearance: Elderly, F, sitting in chair in NAD Eyes: No Scleral Icterus Ears/Nose/Mouth/Throat: Mucous Membranes Moist Neck: NL Appearance and Movements; NL JVP Respiratory: Symmetrical Chest Expansion and Respiratory Effort, Clear to Auscultation Cardiovascular: NL Sounds; No Murmurs; No JVD, RRR Abdominal: NL Sounds; No Tenderness; No Distention Lymphatic: No Cervical Adenopathy Extremities: No Edema Skin: No Rash or Ulcers Neurological: Alert and Oriented x 3 Nutrition: Taking PO's Result Diagrams: 01/23/17 06:26 01/23/17 06:26 Additional Lab and Data: Microbiology and Other Data: Assess/Plan/Problems-Billing Assessment: Ms. Beaulieu is a 76 yo female with a PMH of HTN, CVA with residula left-sided hemiparesis, Subarachnoid hemorrhage (2000), GERD, who fell and suffered a right hip fracture. - Patient Problems (1) Closed right hip fracture Current Visit: Yes Comment: - s/p right hemiarthroplasty for femoral neck fx, Dispo per Dr. Hathaway/Ortho Team - POD #2 - HH trending down, transfusion ordered by Ortho this AM - Pain Management - bowel regimen - Off IVF, monitor UOP with PO intake alone (2) CVA (cerebral infarction) Current Visit: Yes Comment: 08/2016 - L MCA CVA on MRI - with residual right hemiparesis. Previous work-up was unremarkable for cardioembolic source, but echo did show concentric LVH - and nature of stroke c/w hypertensive disease. Continue ASA / Statin (3) Depression Current Visit: Yes Comment: Continue paxil. Hold Ritalin for now in the post-op phase (4) Eosinophilic fasciitis Current Visit: Yes Comment: Skin in stable, nothing to do. Continue Plaquenil (5) Hypertension Current Visit: Yes Comment: Controlled Continue home Amlodipine Enalapril restarted this AM, BPs a bit soft, will add hold parameters (6) DVT prophylaxis Current Visit: Yes Status: Acute Code(s): JSA9549 - SNOMED Code(s): 486825486 Comment: Lovenox SQ daily Status and Disposition: Inpatient with right hip fracture after a mechanical fall now s/p . PMRU eval pending.
[2017-01-23] MEDS: Enoxaparin(*) 30 MG/0.3 ML SYR SUBCUT SCH (16:51)
[2017-01-23] MEDS: Atorvastatin* 80 MG TAB PO SCH (16:51)
[2017-01-23] MEDS: Aspirin EC Low Dose* 81 MG TAB.EC PO SCH (16:51)
[2017-01-23] MEDS: Acetaminophen TAB* 325 MG PO PRN (18:43)
[2017-01-23] MEDS: Cyclobenzaprine TAB* 10 MG PO PRN (22:07)
[2017-01-24] MEDS: HYDROcodone/ACETAMIN 5-325 MG* 1 TAB PO PRN (01:13)
[2017-01-24] MEDS: Cyclobenzaprine TAB* 10 MG PO PRN ×2 (06:03→16:54)
[2017-01-24 07:34] LABS: Hematocrit 29 % (35-47); Hemoglobin 10.1 g/dl (12.0-16.0); Mean Corpuscular HGB Conc 35 g/dl (31-36); Mean Corpuscular Hemoglobin 33 pg (27-31); Mean Corpuscular Volume 92 fL (80-97); Mean Platelet Volume 7 um3 (7.4-10.4); Red Cell Distribution Width 20 % (10.5-15); White Blood Count 5.8 10^3/ul (3.5-10.8)
[2017-01-24 07:38] LABS: Add Diff/Slide Review? Slide Review Added; Comments Flag Yes
[2017-01-24] MEDS: amLODIPine TAB* 5 MG PO SCH (09:32)
[2017-01-24] MEDS: Magnesium Hydroxide LIQ* 30 ML UDC PO SCH ×2 (09:32→21:35)
[2017-01-24] MEDS: Enalapril TAB* 5 MG PO SCH (09:32)
[2017-01-24] MEDS: Hydroxychloroquine TAB* 200 MG PO SCH ×2 (09:32→21:35)
[2017-01-24] MEDS: PARoxetine HCL TAB* 40 MG PO SCH (09:32)
[2017-01-24] MEDS: Famotidine TAB* 20 MG PO SCH (09:33)
[2017-01-24] MEDS: Polyethylene Glycol 3350* 17 GM PACKET PO SCH ×2 (09:33→21:39)
[2017-01-24] MEDS: Diazepam TAB(*) 2 MG PO PRN (10:00)
--- NOTE | 2017-01-24 10:14 | PN ---
Progress Note - Progress Note SOAP: Subjective: [76 y/o female s/p R femoral neck fracture s/o jorge 4/[address] Hathaway. Patient incontinent, tearful. Pain better controlled, no complaints about PT. ] Objective: [General- NAD AO, tearful. MSK- dressing removed, incision D/C/I, new dressing placed, + DF/PF on LLE, none on RLE, PT, DP 2+ b/l, no edema b/l LEs. ] Vital Signs Temp Pulse Resp BP Pulse Ox 97.6 F 77 14 145/82 95 01/24/17 03:56 01/24/17 07:58 01/24/17 10:00 01/24/17 07:58 01/24/17 07:58 Laboratory Results - last 24 hr 01/20/17 01/23/17 01/24/17 12:58 06:26 07:17 WBC 5.8 RBC 3.10 L Hgb 10.1 L Hct 29 L MCV 92 MCH 33 H MCHC 35 RDW 20 H Plt Count 93 L MPV 7 L Neut % (Auto) 72.8 Lymph % (Auto) 12.8 L [place] % (Auto) 13.0 H Eos % (Auto) 0.6 Baso % (Auto) 0.8 Absolute Neuts (auto) 4.2 Absolute Lymphs (auto) 0.7 L Absolute Monos (auto) 0.8 Absolute Eos (auto) 0 Absolute Basos (auto) 0 Absolute Nucleated RBC 0 Nucleated RBC % 0 Blood Type B Positive B Positive Antibody Screen Negative Negative Crossmatch See Detail See Detail Assessment: [76 y/o female s/p R femoral neck fracture s/o jorge 4/[address] Hathaway. ] Plan: [- DVT prophylaxis- - Continue PT - Dressing changes BID due to incontinence - K supplementation today, recheck BMP tomorrow Active Medications Generic Name Dose Route Start Last Admin Trade Name Freq PRN Reason Stop Dose Admin Acetaminophen 650 mg 01/20/17 14:06 01/23/17 18:43 Tylenol Tab* PO 650 mg Q4H PRN Administration FEVER/PAIN Hydrocodone Bitart/Acetaminophen 1 tab 01/20/17 14:06 01/24/17 01:13 [place] 5-325 Tab* PO 1 tab Q6H PRN Administration PAIN Amlodipine Besylate 5 mg 01/22/17 09:00 01/24/17 09:32 Norvasc Tab* PO 5 mg DAILY [facility] Administration Aspirin 81 mg 01/20/17 18:00 01/23/17 16:51 Aspirin Ec Low Dose* PO 81 mg QPM D[facility] Administration Atorvastatin Calcium 80 mg 01/20/17 18:00 01/23/17 16:51 Lipitor* PO 80 mg QPM [facility] Administration Cyclobenzaprine HCl 10 mg 01/20/17 19:35 01/24/17 06:03 Flexeril Tab* PO 10 mg Q8H PRN Administration MUSCLE SPASMS Diazepam 2 mg 01/20/17 19:42 01/24/17 10:00 Valium Tab(*) PO 2 mg Q8H PRN Administration SPASMS - MUSCLE Docusate Sodium 100 mg 01/21/17 17:21 Colace Cap* PO DAILY PRN CONSTIPATION Enalapril Maleate 2.5 mg 01/23/17 13:46 01/24/17 09:32 Vasotec Tab* PO 2.5 mg DAILY [facility] Administration Enoxaparin Sodium 30 mg 01/22/17 16:00 01/23/17 16:51 Lovenox(*) SUBCUT 30 mg Q24H [facility] Administration Famotidine 20 mg 01/21/17 09:00 01/24/17 09:33 Pepcid Tab* PO 20 mg DAILY [facility] Administration Protocol Hydroxychloroquine Sulfate 200 mg 01/20/17 21:00 01/24/17 09:32 Plaquenil Tab* PO 200 mg BID [facility] Administration Magnesium Hydroxide 30 ml 01/21/17 21:00 01/24/17 09:32 Milk Of Magnesia Liq* PO 30 ml BID [facility] Administration Morphine Sulfate 4 mg 01/21/17 17:20 01/22/17 11:23 Morphine Inj (Syringe)* IV 4 mg Q4H PRN Administration PAIN Ondansetron HCl 4 mg 01/20/17 14:06 Zofran Inj* IV Q6H PRN NAUSEA Paroxetine HCl 40 mg 01/21/17 09:00 01/24/17 09:32 Paxil Tab* PO 40 mg DAILY [facility] Administration Pharmacy Profile Note 1 note 01/24/17 16:20 Scopolomine Patch Remove* PATCH OFF 01/24/17 16:21 Q72H ONE Polyethylene Glycol/Electrolytes 17 gm 01/22/17 21:00 04/08/17 09:33 Miralax* PO 17 gm 0800,2100 [facility] Administration ]
[2017-01-24] MEDS ORDERED: Potassium Chloride LIQUID* 20 MEQ PACKET PO ONE (11:00)
[2017-01-24] MEDS ORDERED: NS 0.9% 1000 ML* 1,000 ML IV SCH (11:00)
--- NOTE | 2017-01-24 11:25 | PN ---
Subjective Date of Service: 01/24/17 Interval History: Patient seen this morning with son present. Seems comfortable. Says pain is well controlled. Having some problems keeping R leg extended, feels that she is having some cramps in the hamstrings. Garcia removed yesterday as it was leaking. Family History: Unchanged from Admission Social History: Unchanged from Admission Past Medical History: Unchanged from Admission Objective Active Medications: Acetaminophen (Tylenol Tab*) 650 mg PO Q4H PRN PRN Reason: FEVER/PAIN Last Admin: 01/23/17 18:43 Dose: 650 mg Hydrocodone Bitart/Acetaminophen ([facility] 5-325 Tab*) 1 tab PO Q6H PRN PRN Reason: PAIN Last Admin: 01/24/17 01:13 Dose: 1 tab Amlodipine Besylate (Norvasc Tab*) 5 mg PO DAILY [facility] Last Admin: 01/24/17 09:32 Dose: 5 mg Aspirin (Aspirin Ec Low Dose*) 81 mg PO QPM [facility] Last Admin: 01/23/17 16:51 Dose: 81 mg Atorvastatin Calcium (Lipitor*) 80 mg PO QPM [facility] Last Admin: 01/23/17 16:51 Dose: 80 mg Cyclobenzaprine HCl (Flexeril Tab*) 10 mg PO Q8H PRN PRN Reason: MUSCLE SPASMS Last Admin: 01/24/17 06:03 Dose: 10 mg Diazepam (Valium Tab(*)) 2 mg PO Q8H PRN PRN Reason: SPASMS - MUSCLE Last Admin: 01/24/17 10:00 Dose: 2 mg Docusate Sodium (Colace Cap*) 100 mg PO DAILY PRN PRN Reason: CONSTIPATION Enalapril Maleate (Vasotec Tab*) 2.5 mg PO DAILY [facility] Last Admin: 01/24/17 09:32 Dose: 2.5 mg Enoxaparin Sodium (Lovenox(*)) 30 mg SUBCUT Q24H [facility] Last Admin: 01/23/17 16:51 Dose: 30 mg Famotidine (Pepcid Tab*) 20 mg PO DAILY [facility] PRN Reason: Protocol Last Admin: 01/24/17 09:33 Dose: 20 mg Hydroxychloroquine Sulfate (Plaquenil Tab*) 200 mg PO BID [facility] Last Admin: 01/24/17 09:32 Dose: 200 mg Sodium Chloride (Ns 0.9% 1000 Ml*) 1,000 mls @ 75 mls/hr IV PER RATE [facility] Stop: 01/25/17 00:19 Magnesium Hydroxide (Milk Of Levi Liq*) 30 ml PO BID [facility] Last Admin: 01/24/17 09:32 Dose: 30 ml Morphine Sulfate (Morphine Inj (Syringe)*) 4 mg IV Q4H PRN PRN Reason: PAIN Last Admin: 01/22/17 11:23 Dose: 4 mg Multivitamins/Minerals (Theragran/Minerals Tab*) 1 tab PO DAILY [facility] Ondansetron HCl (Zofran Inj*) 4 mg IV Q6H PRN PRN Reason: NAUSEA Paroxetine HCl (Paxil Tab*) 40 mg PO DAILY [facility] Last Admin: 01/24/17 09:32 Dose: 40 mg Pharmacy Profile Note (Scopolomine Patch Remove*) 1 note PATCH OFF Q72H ONE Stop: 01/24/17 16:21 Polyethylene Glycol/Electrolytes (Miralax*) 17 gm PO 0800,2100 [facility] Last Admin: 01/24/17 09:33 Dose: 17 gm Vital Signs 01/23/17 01/23/17 01/23/17 12:02 14:23 15:07 Temperature 99.2 F 98.4 F Pulse Rate 90 96 Respiratory 18 18 14 Rate Blood Pressure 96/58 117/70 (mmHg) O2 Sat by Pulse 98 95 Oximetry 01/24/17 01/24/17 01/24/17 06:03 07:58 10:00 Temperature Pulse Rate 77 Respiratory 18 16 14 Rate Blood Pressure 145/82 (mmHg) O2 Sat by Pulse 95 Oximetry Oxygen Devices in Use Now: None Appearance: Elderly, F, laying in bed in NAD Eyes: No Scleral Icterus Ears/Nose/Mouth/Throat: Mucous Membranes Moist Neck: NL Appearance and Movements; NL JVP Respiratory: Symmetrical Chest Expansion and Respiratory Effort, Clear to Auscultation Cardiovascular: NL Sounds; No Murmurs; No JVD, RRR Abdominal: NL Sounds; No Tenderness; No Distention Lymphatic: No Cervical Adenopathy Extremities: No Edema, - - RLE with dressing in place, c/d/i Neurological: Alert and Oriented x 3, - - RUE contracted, RLE able to be straightened Result Diagrams: 01/24/17 07:17 01/23/17 06:26 Additional Lab and Data: Microbiology and Other Data: Assess/Plan/Problems-Billing Assessment: Ms. Beaulieu is a 76 yo female with a PMH of HTN, CVA with residula left-sided hemiparesis, Subarachnoid hemorrhage (2000), GERD, who fell and suffered a right hip fracture. - Patient Problems (1) Closed right hip fracture Current Visit: Yes Comment: - s/p right hemiarthroplasty for femoral neck fx, Dispo per Dr. Hathaway/Ortho Team - wonder if cramping due to dehydration, will order additional liter of IVF today, continue flexeril - POD #2 - HH stable after PRBC - Pain Management - bowel regimen (2) CVA (cerebral infarction) Current Visit: Yes Comment: 08/2016 - L MCA CVA on MRI - with residual right hemiparesis. Previous work-up was unremarkable for cardioembolic source, but echo did show concentric LVH - and nature of stroke c/w hypertensive disease. Continue ASA / Statin (3) Depression Current Visit: Yes Comment: Continue paxil. Hold Ritalin for now in the post-op phase (4) Eosinophilic fasciitis Current Visit: Yes Comment: Skin in stable, nothing to do. Continue Plaquenil (5) Hypertension Current Visit: Yes Comment: Controlled Continue home Amlodipine and Enalapril with hold parameters (6) DVT prophylaxis Current Visit: Yes Status: Acute Code(s): [id number] - SNOMED Code(s): 521715019 Comment: Lovenox SQ daily Status and Disposition: Inpatient with right hip fracture after a mechanical fall now s/p . PMRU eval pending.
[2017-01-24] MEDS: Multivitamins/Minerals TAB PO SCH (12:00)
[2017-01-24] MEDS ORDERED: Scopolomine PATCH Remove* 1 NOTE MISC PATCH OFF ONE (16:20)
[2017-01-24] MEDS: Enoxaparin(*) 30 MG/0.3 ML SYR SUBCUT SCH (16:53)
[2017-01-24] MEDS: Atorvastatin* 80 MG TAB PO SCH (16:54)
[2017-01-24] MEDS: Aspirin EC Low Dose* 81 MG TAB.EC PO SCH (16:54)
[2017-01-25] MEDS: Cyclobenzaprine TAB* 10 MG PO PRN ×2 (00:34→16:32)
[2017-01-25 07:21] LABS: BUN/Creatinine Ratio 27.3 (8-20); Calcium 8.6 mg/dL (8.6-10.3); EGFR African American 249.9 (>60); EGFR Non-African American 194.3 (>60); Potassium 3.7 mmol/L (3.5-5.0)
[2017-01-25] MEDS: Magnesium Hydroxide LIQ* 30 ML UDC PO SCH ×2 (07:23→20:52)
[2017-01-25] MEDS: Polyethylene Glycol 3350* 17 GM PACKET PO SCH ×2 (07:23→20:52)
[2017-01-25] MEDS: PARoxetine HCL TAB* 40 MG PO SCH (08:31)
[2017-01-25] MEDS: Hydroxychloroquine TAB* 200 MG PO SCH ×2 (08:31→21:11)
[2017-01-25] MEDS: Enalapril TAB* 5 MG PO SCH (08:31)
[2017-01-25] MEDS: Multivitamins/Minerals TAB PO SCH (08:31)
[2017-01-25] MEDS: Famotidine TAB* 20 MG PO SCH (08:31)
[2017-01-25] MEDS: amLODIPine TAB* 5 MG PO SCH (08:32)
[2017-01-25] MEDS: HYDROcodone/ACETAMIN 5-325 MG* 1 TAB PO PRN ×2 (08:32→23:08)
--- NOTE | 2017-01-25 08:33 | PN ---
Subjective Date of Service: 01/25/17 Interval History: pt feels well. Still has problems extending the post op leg Family History: Unchanged from Admission Social History: Unchanged from Admission Past Medical History: Unchanged from Admission Objective Active Medications: Acetaminophen (Tylenol Tab*) 650 mg PO Q4H PRN PRN Reason: FEVER/PAIN Last Admin: 01/23/17 18:43 Dose: 650 mg Hydrocodone Bitart/Acetaminophen ([place] 5-325 Tab*) 1 tab PO Q6H PRN PRN Reason: PAIN Last Admin: 01/24/17 01:13 Dose: 1 tab Amlodipine Besylate (Norvasc Tab*) 5 mg PO DAILY [facility] Last Admin: 01/24/17 09:32 Dose: 5 mg Aspirin (Aspirin Ec Low Dose*) 81 mg PO QPM [facility] Last Admin: 01/24/17 16:54 Dose: 81 mg Atorvastatin Calcium (Lipitor*) 80 mg PO QPM [facility] Last Admin: 01/24/17 16:54 Dose: 80 mg Cyclobenzaprine HCl (Flexeril Tab*) 10 mg PO Q8H PRN PRN Reason: MUSCLE SPASMS Last Admin: 01/25/17 00:34 Dose: 10 mg Diazepam (Valium Tab(*)) 2 mg PO Q8H PRN PRN Reason: SPASMS - MUSCLE Last Admin: 01/24/17 10:00 Dose: 2 mg Docusate Sodium (Colace Cap*) 100 mg PO DAILY PRN PRN Reason: CONSTIPATION Enalapril Maleate (Vasotec Tab*) 2.5 mg PO DAILY [facility] Last Admin: 01/24/17 09:32 Dose: 2.5 mg Enoxaparin Sodium (Lovenox(*)) 30 mg SUBCUT Q24H [facility] Last Admin: 01/24/17 16:53 Dose: 30 mg Famotidine (Pepcid Tab*) 20 mg PO DAILY [facility] PRN Reason: Protocol Last Admin: 01/24/17 09:33 Dose: 20 mg Hydroxychloroquine Sulfate (Plaquenil Tab*) 200 mg PO BID [facility] Last Admin: 01/24/17 21:35 Dose: 200 mg Magnesium Hydroxide (Milk Of Magnesia Liq*) 30 ml PO BID [facility] Last Admin: 01/25/17 07:23 Dose: Not Given Morphine Sulfate (Morphine Inj (Syringe)*) 4 mg IV Q4H PRN PRN Reason: PAIN Last Admin: 01/22/17 11:23 Dose: 4 mg Multivitamins/Minerals (Theragran/Minerals Tab*) 1 tab PO DAILY [facility] Last Admin: 01/24/17 12:00 Dose: 1 tab Ondansetron HCl (Zofran Inj*) 4 mg IV Q6H PRN PRN Reason: NAUSEA Paroxetine HCl (Paxil Tab*) 40 mg PO DAILY [facility] Last Admin: 01/24/17 09:32 Dose: 40 mg Polyethylene Glycol/Electrolytes (Miralax*) 17 gm PO 0800,2099 [facility] Last Admin: 01/25/17 07:23 Dose: Not Given Vital Signs 01/24/17 01/24/17 01/24/17 10:00 11:17 12:00 Temperature 97.5 F Pulse Rate 90 Respiratory 14 16 16 Rate Blood Pressure 126/76 (mmHg) O2 Sat by Pulse 98 Oximetry 01/24/17 01/24/17 01/24/17 15:59 16:54 19:00 Temperature Pulse Rate 85 Respiratory 14 16 16 Rate Blood Pressure 134/74 (mmHg) O2 Sat by Pulse 97 Oximetry 01/24/17 01/24/17 01/25/17 19:06 21:25 00:00 Temperature 99.6 F 98.4 F Pulse Rate 85 82 Respiratory 16 16 Rate Blood Pressure 115/65 137/89 (mmHg) O2 Sat by Pulse 97 97 Oximetry 01/25/17 01/25/17 01/25/17 00:34 02:34 03:43 Temperature 97.3 F Pulse Rate 76 Respiratory 16 16 16 Rate Blood Pressure 133/75 (mmHg) O2 Sat by Pulse 96 Oximetry Oxygen Devices in Use Now: None Appearance: 76 yo F in nAd, aAOx3, slight dysarthia Eyes: No Scleral Icterus, PERRLA Ears/Nose/Mouth/Throat: NL Teeth, Lips, Gums, Mucous Membranes Moist Neck: NL Appearance and Movements; NL JVP, Trachea Midline Respiratory: Symmetrical Chest Expansion and Respiratory Effort, Clear to Auscultation Cardiovascular: NL Sounds; No Murmurs; No JVD, No Edema Abdominal: NL Sounds; No Tenderness; No Distention, No Hepatosplenomegaly Lymphatic: No Cervical Adenopathy Extremities: No Edema, No Clubbing, Cyanosis Skin: No Nodules or Sclerosis, - - R hip post op dressings -not removed Neurological: Alert and Oriented x 3, - - R hemiparesis, r arm contracted. Unable to move r foot, able to extend R knee to 120 degrees Result Diagrams: 01/24/17 07:17 01/25/17 06:35 Additional Lab and Data: Microbiology and Other Data: Assess/Plan/Problems-Billing Assessment: Ms. Beaulieu is a 76 yo female with a PMH of HTN, CVA with residual left-sided hemiparesis, Subarachnoid hemorrhage (2000), GERD, who fell and suffered a right hip fracture. - Patient Problems (1) Closed right hip fracture Comment: - s/p right hemiarthroplasty for femoral neck fx, Dispo per Dr. Hathaway/ Ortho Team - POD #3 - HH stable after PRBC - Pain Management - bowel regimen (2) CVA (cerebral infarction) Comment: 08/2016 - L MCA CVA on MRI - with residual right hemiparesis. Previous work-up was unremarkable for cardioembolic source, but echo did show concentric LVH - and nature of stroke c/w hypertensive disease. Continue ASA / Statin (3) Depression Comment: Continue paxil. Hold Ritalin for now in the post-op phase (4) Postoperative anemia Comment: s/p 3 U PRBC transfusion (5) Eosinophilic fasciitis Comment: Skin in stable, no lesions appreciated Continue Plaquenil (6) DVT prophylaxis Comment: Lovenox SQ daily (7) Hypertension Comment: Controlled Continue home Amlodipine and Enalapril with hold parameters Status and Disposition: Inpatient with right hip fracture after a mechanical fall now s/p . PMRU eval pending.
--- NOTE | 2017-01-25 09:47 | PN ---
Progress Note - Progress Note SOAP: Subjective: Pt. is in bed, nad, son at bedside. Objective: RLE - dressing intact, distally nvi. Vital Signs: Temp Pulse Resp BP Pulse Ox 99.2 F 79 16 136/86 97 01/25/17 08:31 01/25/17 08:31 01/25/17 08:32 01/25/17 08:31 01/25/17 08:31 Laboratory Results - last 24 hr 01/25/17 06:35 Sodium 131 L Potassium 3.7 Chloride 96 L Carbon Dioxide 28 Anion Gap 7 BUN 9 Creatinine 0.33 L Est GFR ( Amer) 249.9 Est GFR (Non-Af Amer) 194.3 BUN/Creatinine Ratio 27.3 H Glucose 100 Calcium 8.6 Assessment: 76 yo F pod 4 s/p R hip jorge for fem neck fx Plan: wbat post hip precautions ortho stable for d/c to snf vs pmru
[2017-01-25] MEDS: Atorvastatin* 80 MG TAB PO SCH (16:31)
[2017-01-25] MEDS: Aspirin EC Low Dose* 81 MG TAB.EC PO SCH (16:31)
[2017-01-25] MEDS: Enoxaparin(*) 30 MG/0.3 ML SYR SUBCUT SCH (16:32)
[2017-01-26] MEDS: Cyclobenzaprine TAB* 10 MG PO PRN ×2 (02:44→20:31)
[2017-01-26] MEDS: Magnesium Hydroxide LIQ* 30 ML UDC PO SCH ×2 (07:33→20:33)
[2017-01-26] MEDS: Polyethylene Glycol 3350* 17 GM PACKET PO SCH ×2 (07:33→20:33)
--- NOTE | 2017-01-26 08:13 | PN ---
Subjective Date of Service: 01/26/17 Interval History: pt feels well. almost no post op pain. Family History: Unchanged from Admission Social History: Unchanged from Admission Past Medical History: Unchanged from Admission Objective Active Medications: Acetaminophen (Tylenol Tab*) 650 mg PO Q4H PRN PRN Reason: FEVER/PAIN Last Admin: 01/23/17 18:43 Dose: 650 mg Hydrocodone Bitart/Acetaminophen ([place] 5-325 Tab*) 1 tab PO Q6H PRN PRN Reason: PAIN Last Admin: 01/25/17 23:08 Dose: 1 tab Amlodipine Besylate (Norvasc Tab*) 5 mg PO DAILY [facility] Last Admin: 01/25/17 08:32 Dose: 5 mg Aspirin (Aspirin Ec Low Dose*) 81 mg PO QPM [facility] Last Admin: 01/25/17 16:31 Dose: 81 mg Atorvastatin Calcium (Lipitor*) 80 mg PO QPM [facility] Last Admin: 01/25/17 16:31 Dose: 80 mg Cyclobenzaprine HCl (Flexeril Tab*) 10 mg PO Q8H PRN PRN Reason: MUSCLE SPASMS Last Admin: 01/26/17 02:44 Dose: 10 mg Diazepam (Valium Tab(*)) 2 mg PO Q8H PRN PRN Reason: SPASMS - MUSCLE Last Admin: 01/24/17 10:00 Dose: 2 mg Docusate Sodium (Colace Cap*) 100 mg PO DAILY PRN PRN Reason: CONSTIPATION Enalapril Maleate (Vasotec Tab*) 2.5 mg PO DAILY [facility] Last Admin: 01/25/17 08:31 Dose: 2.5 mg Enoxaparin Sodium (Lovenox(*)) 30 mg SUBCUT Q24H [facility] Last Admin: 01/25/17 16:32 Dose: 30 mg Famotidine (Pepcid Tab*) 20 mg PO DAILY [facility] PRN Reason: Protocol Last Admin: 01/25/17 08:31 Dose: 20 mg Hydroxychloroquine Sulfate (Plaquenil Tab*) 200 mg PO BID [facility] Last Admin: 01/25/17 21:11 Dose: 200 mg Magnesium Hydroxide (Milk Of Magnesia Liq*) 30 ml PO BID [facility] Last Admin: 01/26/17 07:33 Dose: Not Given Methylphenidate HCl (Ritalin Tab*) 2.5 mg PO BID [facility] Morphine Sulfate (Morphine Inj (Syringe)*) 4 mg IV Q4H PRN PRN Reason: PAIN Last Admin: 01/22/17 11:23 Dose: 4 mg Multivitamins/Minerals (Theragran/Minerals Tab*) 1 tab PO DAILY [facility] Last Admin: 01/25/17 08:31 Dose: 1 tab Ondansetron HCl (Zofran Inj*) 4 mg IV Q6H PRN PRN Reason: NAUSEA Paroxetine HCl (Paxil Tab*) 40 mg PO DAILY [facility] Last Admin: 01/25/17 08:31 Dose: 40 mg Polyethylene Glycol/Electrolytes (Miralax*) 17 gm PO 0800,2100 [facility] Last Admin: 01/26/17 07:33 Dose: Not Given Vital Signs 01/25/17 01/25/17 01/25/17 08:31 08:32 10:32 Temperature 99.2 F Pulse Rate 79 Respiratory 20 16 18 Rate Blood Pressure 136/86 (mmHg) O2 Sat by Pulse 97 Oximetry 01/25/17 01/25/17 01/25/17 12:38 14:42 15:32 Temperature 98.6 F 97.6 F Pulse Rate 93 82 Respiratory 16 17 Rate Blood Pressure 91/66 106/71 (mmHg) O2 Sat by Pulse 100 100 100 Oximetry 01/25/17 01/25/17 01/25/17 16:32 18:20 20:00 Temperature Pulse Rate Respiratory 18 16 16 Rate Blood Pressure (mmHg) O2 Sat by Pulse Oximetry 01/25/17 01/25/17 01/25/17 20:21 23:08 23:58 Temperature 98.2 F 97.3 F Pulse Rate 84 82 Respiratory 16 18 16 Rate Blood Pressure 105/56 124/74 (mmHg) O2 Sat by Pulse 97 96 Oximetry 01/26/17 01/26/17 01/26/17 00:00 01:08 02:44 Temperature Pulse Rate Respiratory 18 18 Rate Blood Pressure (mmHg) O2 Sat by Pulse 96 Oximetry 01/26/17 01/26/17 04:00 04:44 Temperature 98.5 F Pulse Rate 69 Respiratory 16 18 Rate Blood Pressure 121/69 (mmHg) O2 Sat by Pulse 100 Oximetry Oxygen Devices in Use Now: None Appearance: 76 yo F in nAD, AAOx3,slight baseline dysarthia Eyes: No Scleral Icterus, PERRLA Ears/Nose/Mouth/Throat: NL Teeth, Lips, Gums, Mucous Membranes Moist Neck: NL Appearance and Movements; NL JVP, Trachea Midline Respiratory: Symmetrical Chest Expansion and Respiratory Effort Cardiovascular: NL Sounds; No Murmurs; No JVD, RRR Abdominal: NL Sounds; No Tenderness; No Distention Lymphatic: No Cervical Adenopathy Extremities: No Edema, No Clubbing, Cyanosis Skin: - - r post op hip, incision not uncovered from post op dressings Neurological: Alert and Oriented x 3, - - R arm spastic paresis. r leg-unable to extend knee past 120 degrees, unable to move foot on R Result Diagrams: 01/24/17 07:17 01/25/17 06:35 Additional Lab and Data: Microbiology and Other Data: Assess/Plan/Problems-Billing Assessment: Ms. Beaulieu is a 76 yo female with a PMH of HTN, CVA with residual left-sided hemiparesis, Subarachnoid hemorrhage (2000), GERD, who fell and suffered a right hip fracture. - Patient Problems (1) Closed right hip fracture Comment: - s/p right hemiarthroplasty for femoral neck fx, Dispo per Dr. Hathaway/ Ortho Team - POD #4 - HH stable after PRBC - Pain Management - bowel regimen (2) CVA (cerebral infarction) Comment: 08/2016 - L MCA CVA on MRI - with residual right hemiparesis. Previous work-up was unremarkable for cardioembolic source, but echo did show concentric LVH - and nature of stroke c/w hypertensive disease. Continue ASA / Statin (3) Depression Comment: Continue paxil. restart Ritalin (4) Postoperative anemia Comment: s/p 3 U PRBC transfusion (5) Eosinophilic fasciitis Comment: Skin in stable, no lesions appreciated Continue Plaquenil (6) DVT prophylaxis Comment: Lovenox SQ daily (7) Hypertension Comment: Controlled Continue home Amlodipine and Enalapril with hold parameters Status and Disposition: Inpatient with right hip fracture after a mechanical fall now s/p . PMRU eval pending.
[2017-01-26] MEDS: Multivitamins/Minerals TAB PO SCH (08:16)
[2017-01-26] MEDS: Hydroxychloroquine TAB* 200 MG PO SCH ×2 (08:16→20:31)
[2017-01-26] MEDS: PARoxetine HCL TAB* 40 MG PO SCH (08:16)
[2017-01-26] MEDS: amLODIPine TAB* 5 MG PO SCH (08:16)
[2017-01-26] MEDS: Famotidine TAB* 20 MG PO SCH (08:16)
[2017-01-26] MEDS: Enalapril TAB* 5 MG PO SCH (08:16)
--- NOTE | 2017-01-26 09:35 | PN ---
Progress Note - Progress Note SOAP: Subjective: []Patient seen OOB in chair. Her son is present. She is doing well and her pain is well managed. Hoping for rehab transfer. Objective: [] Vital Signs Temp 97.4 F 01/26/17 07:44 Pulse 77 01/26/17 07:44 Resp 18 01/26/17 08:00 BP 132/79 01/26/17 07:44 Pulse Ox 100 01/26/17 08:00 Intake & Output 01/25/17 01/26/17 01/26/17 18:59 06:59 18:59 Intake Total 0 920 Output Total 200 Balance -200 920 Intake: Oral 0 920 Output: Urine 200 Other: Estimated Void Small Medium Date of Last Bowel 01/25/17 Movement # Bowel Movements 1 1 Estimated Stool Amount Small Small # Voids 1 2 Right hip incision benign calf non tender and soft neuro unchanged, no active DF right ankle baseline Assessment: []s/p Right hip hemiarthroplasty for femoral neck fracture POD #5 Plan: []PT/OT WBAT right LE Orthopedically stable for discharge to rehab when bed approved/ available.
[2017-01-26] MEDS: Methylphenidate TAB* 5 MG PO SCH ×2 (10:31→20:31)
[2017-01-26] MEDS: Aspirin EC Low Dose* 81 MG TAB.EC PO SCH (17:05)
[2017-01-26] MEDS: Atorvastatin* 80 MG TAB PO SCH (17:05)
[2017-01-26] MEDS: Enoxaparin(*) 30 MG/0.3 ML SYR SUBCUT SCH (17:05)
[2017-01-26] MEDS: HYDROcodone/ACETAMIN 5-325 MG* 1 TAB PO PRN (21:31)
[2017-01-27] MEDS: Polyethylene Glycol 3350* 17 GM PACKET PO SCH ×2 (07:33→20:43)
[2017-01-27] MEDS: Magnesium Hydroxide LIQ* 30 ML UDC PO SCH ×2 (08:33→20:43)
[2017-01-27] MEDS: Multivitamins/Minerals TAB PO SCH (08:46)
[2017-01-27] MEDS: amLODIPine TAB* 5 MG PO SCH (08:46)
[2017-01-27] MEDS: Enalapril TAB* 5 MG PO SCH (08:46)
[2017-01-27] MEDS: Methylphenidate TAB* 5 MG PO SCH ×2 (08:46→20:43)
[2017-01-27] MEDS: Famotidine TAB* 20 MG PO SCH (08:46)
[2017-01-27] MEDS: PARoxetine HCL TAB* 40 MG PO SCH (08:52)
[2017-01-27] MEDS: HYDROcodone/ACETAMIN 5-325 MG* 1 TAB PO PRN (08:52)
[2017-01-27] MEDS: Hydroxychloroquine TAB* 200 MG PO SCH ×2 (08:52→20:43)
--- NOTE | 2017-01-27 09:52 | PN ---
Progress Note - Progress Note SOAP: Subjective: []Patient seen OOB eating breakfast. Doing very well. Minimal complaints of pain. States she was denied at [facility] for rehab and hopes to be accepted at [facility] rehab unit. Objective: [] Vital Signs Temp 97.9 F 01/27/17 07:40 Pulse 83 01/27/17 07:40 Resp 16 01/27/17 08:52 BP 125/72 01/27/17 07:40 Pulse Ox 97 01/27/17 07:40 Intake & Output 01/26/17 01/27/17 01/27/17 18:59 06:59 18:59 Intake Total 600 1240 Output Total 750 500 250 Balance -150 740 -250 Intake: Oral 600 1240 Output: Urine 500 300 250 Liquid Stool 250 200 Other: Estimated Void Small # Bowel Movements 1 1 Estimated Stool Amount Medium Medium # Voids 2 Right hip incision benign some edema and brusing noted calf NT and soft no active DF-baseline Assessment: []s/p Right hip hemiarthroplasty for femoral neck fracture POD # 6 Plan: []Patient is orthopedically stable for rehab- will sign off Continue PT/OT WBAT right LE Follow up in office in [address] Hathaway
--- NOTE | 2017-01-27 14:41 | PN ---
Subjective Date of Service: 01/27/17 Interval History: Pt feels well. Noted to have SBP in 80's this AM, but asymptomatic. Family History: Unchanged from Admission Social History: Unchanged from Admission Past Medical History: Unchanged from Admission Objective Active Medications: Acetaminophen (Tylenol Tab*) 650 mg PO Q4H PRN PRN Reason: FEVER/PAIN Last Admin: 01/23/17 18:43 Dose: 650 mg Aspirin (Aspirin Ec Low Dose*) 81 mg PO QPM [facility] Last Admin: 01/26/17 17:05 Dose: 81 mg Atorvastatin Calcium (Lipitor*) 80 mg PO QPM [facility] Last Admin: 01/26/17 17:05 Dose: 80 mg Cyclobenzaprine HCl (Flexeril Tab*) 10 mg PO Q8H PRN PRN Reason: MUSCLE SPASMS Last Admin: 01/26/17 20:31 Dose: 10 mg Diazepam (Valium Tab(*)) 2 mg PO Q8H PRN PRN Reason: SPASMS - MUSCLE Last Admin: 01/24/17 10:00 Dose: 2 mg Docusate Sodium (Colace Cap*) 100 mg PO DAILY PRN PRN Reason: CONSTIPATION Enalapril Maleate (Vasotec Tab*) 2.5 mg PO DAILY [facility] Last Admin: 01/27/17 08:46 Dose: 2.5 mg Enoxaparin Sodium (Lovenox(*)) 30 mg SUBCUT Q24H [facility] Last Admin: 01/26/17 17:05 Dose: 30 mg Famotidine (Pepcid Tab*) 20 mg PO DAILY [facility] PRN Reason: Protocol Last Admin: 01/27/17 08:46 Dose: 20 mg Hydroxychloroquine Sulfate (Plaquenil Tab*) 200 mg PO BID [facility] Last Admin: 01/27/17 08:52 Dose: 200 mg Magnesium Hydroxide (Milk Of Magnesia Liq*) 30 ml PO BID [facility] Last Admin: 01/27/17 08:33 Dose: Not Given Methylphenidate HCl (Ritalin Tab*) 2.5 mg PO BID [facility] Last Admin: 01/27/17 08:46 Dose: 2.5 mg Morphine Sulfate (Morphine Inj (Syringe)*) 4 mg IV Q4H PRN PRN Reason: PAIN Last Admin: 01/22/17 11:23 Dose: 4 mg Multivitamins/Minerals (Theragran/Minerals Tab*) 1 tab PO DAILY [facility] Last Admin: 01/27/17 08:46 Dose: 1 tab Ondansetron HCl (Zofran Inj*) 4 mg IV Q6H PRN PRN Reason: NAUSEA Paroxetine HCl (Paxil Tab*) 40 mg PO DAILY [facility] Last Admin: 01/27/17 08:52 Dose: 40 mg Polyethylene Glycol/Electrolytes (Miralax*) 17 gm PO 0800,2100 [facility] Last Admin: 01/27/17 07:33 Dose: Not Given Vital Signs 01/26/17 01/26/17 01/26/17 15:06 16:00 19:55 Temperature 97.7 F 98.8 F Pulse Rate 89 89 Respiratory 20 16 Rate Blood Pressure 118/74 120/74 (mmHg) O2 Sat by Pulse 99 99 99 Oximetry 01/26/17 01/26/17 01/26/17 20:00 20:31 21:31 Temperature Pulse Rate Respiratory 20 18 20 Rate Blood Pressure (mmHg) O2 Sat by Pulse Oximetry 01/26/17 01/26/17 01/26/17 22:31 23:09 23:31 Temperature 98.4 F Pulse Rate 82 Respiratory 20 16 20 Rate Blood Pressure 128/72 (mmHg) O2 Sat by Pulse 96 Oximetry 01/27/17 01/27/17 01/27/17 00:00 03:45 07:40 Temperature 98.0 F 97.9 F Pulse Rate 82 83 Respiratory 16 18 Rate Blood Pressure 108/66 125/72 (mmHg) O2 Sat by Pulse 96 97 97 Oximetry 01/27/17 01/27/17 01/27/17 08:15 08:52 11:52 Temperature 97.8 F Pulse Rate 99 Respiratory 16 16 18 Rate Blood Pressure 86/61 (mmHg) O2 Sat by Pulse 97 97 Oximetry 01/27/17 12:04 Temperature Pulse Rate Respiratory Rate Blood Pressure 94/62 (mmHg) O2 Sat by Pulse Oximetry Oxygen Devices in Use Now: None Appearance: 76 yo F in nAd, aAOx3, mild chronic dysarthia Eyes: No Scleral Icterus, PERRLA Ears/Nose/Mouth/Throat: NL Teeth, Lips, Gums, Mucous Membranes Moist Neck: NL Appearance and Movements; NL JVP, Trachea Midline Respiratory: Symmetrical Chest Expansion and Respiratory Effort, Clear to Auscultation Cardiovascular: NL Sounds; No Murmurs; No JVD, RRR Abdominal: NL Sounds; No Tenderness; No Distention, No Hepatosplenomegaly Lymphatic: No Cervical Adenopathy Extremities: No Edema, No Clubbing, Cyanosis Skin: No Rash or Ulcers, No Nodules or Sclerosis, - - r hip post op dressings not removed Neurological: Alert and Oriented x 3, - - R arm contracted. R leg-unable to extend knee past 120 degrees Result Diagrams: 01/24/17 07:17 01/25/17 06:35 Additional Lab and Data: Microbiology and Other Data: Assess/Plan/Problems-Billing Assessment: Ms. Beaulieu is a 76 yo female with a PMH of HTN, CVA with residual left-sided hemiparesis, Subarachnoid hemorrhage (2000), GERD, who fell and suffered a right hip fracture. - Patient Problems (1) Closed right hip fracture Comment: - s/p right hemiarthroplasty for femoral neck fx, Dispo per Dr. Hathaway/ Ortho Team - POD #5 - HH stable after PRBC - Pain Management - bowel regimen (2) CVA (cerebral infarction) Comment: 08/2016 - L MCA CVA on MRI - with residual right hemiparesis. Previous work-up was unremarkable for cardioembolic source, but echo did show concentric LVH - and nature of stroke c/w hypertensive disease. Continue ASA / Statin (3) Depression Comment: Continue paxil. restart Ritalin (4) Postoperative anemia Comment: Acute, post op, s/p 3 U PRBC transfusion (5) Eosinophilic fasciitis Comment: Skin in stable, no lesions appreciated Continue Plaquenil (6) DVT prophylaxis Comment: Lovenox SQ daily (7) Hypertension Comment: SBP low today. will d/c Norvasc, and cont Enalapril with hold parameters Status and Disposition: Inpatient with right hip fracture after a mechanical fall . Medically stable for discharge. Pt unfortunately will need to pay for her rehab, since she had already used her allowed by insurance rehab days.
[2017-01-27] MEDS: Atorvastatin* 80 MG TAB PO SCH (17:52)
[2017-01-27] MEDS: Aspirin EC Low Dose* 81 MG TAB.EC PO SCH (17:52)
[2017-01-27] MEDS: Enoxaparin(*) 30 MG/0.3 ML SYR SUBCUT SCH (17:52)
[2017-01-27] MEDS: Cyclobenzaprine TAB* 10 MG PO PRN (20:48)
[2017-01-27] MEDS: Acetaminophen TAB* 325 MG PO PRN (20:48)
[2017-01-28 06:55] LABS: Hematocrit 30 % (35-47); Hemoglobin 10.6 g/dl (12.0-16.0); Mean Corpuscular HGB Conc 35 g/dl (31-36); Mean Corpuscular Hemoglobin 33 pg (27-31); Mean Corpuscular Volume 94 fL (80-97); Mean Platelet Volume 7 um3 (7.4-10.4); Red Blood Count 3.24 10^6/ul (4.0-5.4); Red Cell Distribution Width 19 % (10.5-15); White Blood Count 4.5 10^3/ul (3.5-10.8)
[2017-01-28 07:15] LABS: BUN/Creatinine Ratio 42.4 (8-20); Calcium 8.7 mg/dL (8.6-10.3); EGFR African American 249.9 (>60); EGFR Non-African American 194.3 (>60); Potassium 3.7 mmol/L (3.5-5.0)
[2017-01-28] MEDS: Magnesium Hydroxide LIQ* 30 ML UDC PO SCH (08:58)
[2017-01-28] MEDS: Polyethylene Glycol 3350* 17 GM PACKET PO SCH (08:58)
[2017-01-28] MEDS: Hydroxychloroquine TAB* 200 MG PO SCH (09:05)
[2017-01-28] MEDS: Enalapril TAB* 5 MG PO SCH (09:05)
[2017-01-28] MEDS: Famotidine TAB* 20 MG PO SCH (09:07)
[2017-01-28] MEDS: PARoxetine HCL TAB* 40 MG PO SCH (09:07)
[2017-01-28] MEDS: Multivitamins/Minerals TAB PO SCH (09:07)
[2017-01-28] MEDS: Methylphenidate TAB* 5 MG PO SCH (09:07)
[2017-01-28 12:03] VITALS: BP 118/67
--- NOTE | 2017-01-28 12:14 | PN ---
Hospitalist Progress Note . HOSPITALIST DISCHARGE NOTE: See dc instructions and summary by me. Patient stable for dc dc instructions reviewed with the patient at the bedside. DC patient to [facility] today.
--- NOTE | 2017-01-28 12:23 | DS ---
DATE OF ADMISSION: 01/20/2017. DATE OF DISCHARGE: 01/28/2017. PRIMARY CARE PROVIDER: Dr. Bina Bauer. STATUS DURING HOSPITALIZATION: Inpatient. PRINCIPAL DISCHARGE DIAGNOSES: 1. Fall with right hip fracture/femoral neck fracture, status post ORIF correction by Dr. Luzma Hathaway with good effect. 2. History of cerebrovascular accident in August 2016 with residual left hemiparesis and gait instability. SECONDARY DIAGNOSES: 1. Subarachnoid hemorrhage 2000. 2. Hypertension. 3. Depression. 4. Transient ischemic attack. 5. GERD. 6. History of cerebrovascular accident as above. 7. Basal cell cancer. 8. Eosinophilic fasciitis. DISCHARGE MEDICATION REGIMEN: 1. Aspirin enteric coated 81 mg by mouth daily. 2. Lipitor 80 mg by mouth in the evening. 3. Enalapril 2.5 mg by mouth daily. 4. Hydroxychloroquine/Plaquenil 200 by mouth twice daily. 5. Methylphenidate/Ritalin 2.5 mg by mouth twice daily. 6. Paroxetine 40 mg by mouth daily (Paxil). 7. Ranitidine 150 mg by mouth daily. HISTORY OF PRESENT ILLNESS/HOSPITAL COURSE: Please see the history and physical by Dr. Aurelia Cueto dictated by nurse practitioner Alex Wilson on 01/20/2017. In brief, Ms. Beaulieu is a 76-year-old female who came to the emergency room after a fall. She has baseline residual left hemiparesis following a stroke in August 2016. The patient was trying to get a soda and leaned forward and she fell and landed on her hip and hit her head. She was not dizzy before this. She was undergoing physical therapy at that time and was walking with a cane. There was no accompanying symptoms. The patient was found to have a hip fracture in the emergency room and was admitted by the hospitalist service for risk stratification. She was seen by Orthopedic Surgery in consultation who ultimately corrected her hip on 01/22/2017. Please see Dr. Luzma Hathaway's operative note for more details. The patient continued during the hospitalization without too many complications, but did have episodes of depression. The patient was restarted on Ritalin and continued on Paxil. The patient did have a blood transfusion with three units in the hospital for blood loss anemia relating to her surgery. Again, she presented a hemoglobin of 9.6 on January 20, went as low as 7.4 and was transfused back up to 10.6 by the day of discharge. Her other labs results are generally unremarkable. She did not suffer any appreciable renal dysfunction during this hospitalization and her major electrolytes are within normal limits. The patient is cooperating with rehabilitation and stable for discharge to [facility] [place] today. Total time taken to discharge Ms. Beaulieu was 45 minutes, greater than half that time spent going over the discharge instructions [id number] with the patient, explaining return to hospital parameters and she will come back if she has any worrisome symptoms, including but not limited to chest pain, shortness of breath , lightheadedness, other worrisome neurologic or orthopedic findings. She will follow-up with Dr. Luzma Hathaway in the outpatient setting for postop evaluation. CONDITION ON DISCHARGE: Stable. CC: Dr. Bina aBuer * [id number]/[facility] #: [id number] MTDD
== END 2017-01-28 14:10 | DRG 470 ==
LOC: ED 09:33 → SSU 14:26
PROVIDERS: ADMIT Internal Medicine; ATTEND Internal Medicine
PROC: 0SRR0JA Replacement of Right Hip Joint, Femoral Surface with Synthetic Substitute, Uncemented, Open Approach (ICD-10-PCS; 2017-01-21)
PROC: 30233N1 Transfusion of Nonautologous Red Blood Cells into Peripheral Vein, Percutaneous Approach (ICD-10-PCS; principal; 2017-01-23)
DX: S72.011A Unspecified intracapsular fracture of right femur, initial encounter for closed fracture (principal); I27.2 Other secondary pulmonary hypertension; I69.351 Hemiplegia and hemiparesis following cerebral infarction affecting right dominant side; D62 Acute posthemorrhagic anemia; I10 Essential (primary) hypertension; Z98.42 Cataract extraction status, left eye; Z98.41 Cataract extraction status, right eye; G62.9 Polyneuropathy, unspecified; F32.9 Major depressive disorder, single episode, unspecified; Z82.49 Family history of ischemic heart disease and other diseases of the circulatory system; Z87.891 Personal history of nicotine dependence; K21.9 Gastro-esophageal reflux disease without esophagitis; Z82.3 Family history of stroke; M35.4 Diffuse (eosinophilic) fasciitis; W19.XXXA Unspecified fall, initial encounter; Y93.01 Activity, walking, marching and hiking; Y92.090 Kitchen in other non-institutional residence as the place of occurrence of the external cause; Z66 Do not resuscitate; F41.9 Anxiety disorder, unspecified; E78.5 Hyperlipidemia, unspecified; Z79.82 Long term (current) use of aspirin
CPT/HCPCS: 36415; 70450; 71010; 72125; 72170; 80048; 80053; 81003; 82272; 82607; 82728; 82746; 83540; 83550; 83921; 84466; 85014; 85018; 85025; 85027; 85610; 85730; 86078; 86850; 86900; 86901; 86922; 88305; 88311; 93005; 94760; A9270-GY; C1776; J0330; J0690; J1100; J1650; J2270; J2405; J2704; J3010; P9016; P9040

== ENCOUNTER 2017-04-03 07:34 | Observation (INO) | payer MEDICARE ==
[2017-04-03 08:09] LABS: Hematocrit 33 % (35-47); Hemoglobin 11.4 g/dl (12.0-16.0); Mean Corpuscular HGB Conc 35 g/dl (31-36); Mean Corpuscular Hemoglobin 35 pg (27-31); Mean Corpuscular Volume 101 fL (80-97); Mean Platelet Volume 6 um3 (7.4-10.4); Red Blood Count 3.27 10^6/ul (4.0-5.4); Red Cell Distribution Width 21 % (10.5-15); White Blood Count 4.1 10^3/ul (3.5-10.8)
[2017-04-03 08:19] LABS: ALT 29 U/L (7-52); AST 23 U/L (13-39); Albumin 3.8 g/dL (3.2-5.2); Alkaline Phosphatase 83 U/L (34-104); Anion Gap 5 mmol/L (2-11); BUN/Creatinine Ratio 28.3 (8-20); Blood Urea Nitrogen 15 mg/dL (6-24); CO2 Carbon Dioxide 31 mmol/L (22-32); Calcium 9.3 mg/dL (8.6-10.3); Chloride 98 mmol/L (101-111); Cholesterol 122 mg/dL; EGFR African American 144.6 (>60); EGFR Non-African American 112.5 (>60); Globulin 2.6 g/dL (2-4); Glucose 105 mg/dL (70-100); HDL Cholesterol 67.9 mg/dL; LDL Cholesterol 47 mg/dL; Potassium 3.7 mmol/L (3.5-5.0); Sodium 134 mmol/L (133-145); Total Protein 6.4 g/dL (6.4-8.9); Triglycerides 34 mg/dL
--- NOTE | 2017-04-03 08:22 | RAD ---
Indication: Neurologic changes. CT of the brain was performed without IV contrast. Comparison is made with previous exam dated January 20, 2017. Ventricular structures are midline. No midline shift is noted. Cortical atrophy is noted. Periventricular lucency consistent with chronic ischemic changes noted. Focal hypodense area is noted in the left temporal insula extending into the left basal ganglia likely representing an old infarct. There is no evidence of intracranial mass or hemorrhage. No other high or low density lesions are noted. IMPRESSION: Old infarct involving the left temporal insula extending into the left basal ganglia. No intracranial mass or hemorrhage is noted. Chronic ischemic White matter change is noted. Dr. Mcleod was notified of the results at 8:19 AM.
--- NOTE | 2017-04-03 08:57 | RAD ---
Indication: Neurologic changes. Single frontal view of the chest performed at 0822 hours was reviewed. Comparison is made with previous exam dated January 20, 2017. No mediastinal shift is noted. Prominent aortic arch is not significantly changed from previous exam. Lung saldivar are clear. IMPRESSION: NO ACTIVE CARDIOPULMONARY DISEASE IS NOTED. PROMINENT AORTIC ARCH.
[2017-04-03] MEDS ORDERED: Acetaminophen TAB* 325 MG PO ONE (09:06)
[2017-04-03] MEDS ORDERED: Aspirin Low Dose CHEW TAB* 81 MG PO ONE (09:06)
[2017-04-03] MEDS ORDERED: Iohexol 350* (CONTRAST) 500 ML MDV IV ONE (09:23)
[2017-04-03 10:19] LABS: Urine Bilirubin Negative (Negative); Urine Glucose Negative (Negative); Urine Nitrite Negative (Negative)
[2017-04-03] MEDS ORDERED: Acetaminophen TAB* 325 MG PO PRN (10:31)
[2017-04-03] MEDS ORDERED: Morphine INJ* 2 MG/ML 1 ML SYRINGE IV PRN (10:31)
[2017-04-03] MEDS ORDERED: oxyCODONE/Acetamin 5/325 MG* TAB PO PRN (10:31)
--- NOTE | 2017-04-03 10:37 | RAD ---
Indication: Stroke, expressive aphasia. Contrast:Administered 79.9 ml of OMNIPAQUE 350 mgi/ml CTA of the neck and head was performed after IV contrast administration. Coronal and sagittal reconstructed images were obtained. 3-D reconstructive images were also obtained. The origins of the great vessels are unremarkable. The right common carotid artery demonstrates no intimal wall thickening. The left common carotid artery demonstrates no intimal wall thickening. The carotid bulb demonstrates no evidence of calcific plaque. The right internal carotid artery in the neck demonstrates no stenosis. The left internal carotid artery in the neck demonstrates no stenosis. No evidence of carotid artery dissection is noted in either internal carotid arteries. Both vertebral arteries are well demonstrated. No evidence of dissection is noted. CTA of the head demonstrates intracranial carotid arteries to be unremarkable with no evidence of aneurysmal the anterior and middle cerebral arteries are unremarkable with normal bifurcation. There is cross-filling of the anterior cerebral artery with anterior communicating artery. The basilar artery and posterior cerebral arteries are unremarkable with no branch occlusion. No aneurysmal dilatation is noted. Middle cerebral artery demonstrate symmetric flow. Soft tissues of the neck are grossly unremarkable. IMPRESSION: No significant stenosis of the internal carotid arteries in the neck. Intracranial circulation demonstrates no evidence of branch occlusion. No aneurysmal dilatation is noted.
[2017-04-03] MEDS ORDERED: NS 0.9% 1000 ML* 1,000 ML IV SCH (10:45)
[2017-04-03 11:12] LABS: C Reactive Protein < 1.00 mg/L (< 5.00)
[2017-04-03 11:47] LABS: Erythrocyte Sed Rate 19 mm/Hr (0-40)
--- NOTE | 2017-04-03 13:07 | HP ---
HISTORY AND PHYSICAL:* ADDENDUM: DATE OF ADMISSION: 04/03/17 Please note that I spoke with Dr. Gomez about the patient's treatment and it was decided that the patient's aspirin is going to be switched to Plavix. The patient is going to be started on Plavix at [address] Gomez will see the patient in consult. [id number]/[facility] #: [id number] MTDD
--- NOTE | 2017-04-03 13:24 | HP ---
ADDENDUM NOW INCLUDED ON THIS REPORT CC: Dr. Rojas; Dr. Bauer* HISTORY AND PHYSICAL: DATE OF ADMISSION: 04/03/17 PRIMARY CARE PROVIDER: Dr. Bauer. CHIEF COMPLAINT: Transient speech problem. HISTORY OF PRESENT ILLNESS: Rachele Beaulieu is a 76-year-old female with history of ischemic CVA and hemorrhagic CVA with residual right hand contraction and right- sided weakness, who presented to the hospital after she was noted at 5: 30 to not being able to speak for approximately 15 minutes. The patient stated that together with that, she had occipital headache and lightheadedness. The speech problem resolved. She stated that she did not have a slurred speech but she just could not formulate words. She was coherent throughout the time and it lasted approximately 15 minutes. By the time she came into the emergency department, she was back to her baseline. She still complains of lightheadedness which is worse when she sits up and also occipital headache. She is going to be placed on overnight observation with a diagnosis of TIA. PAST MEDICAL HISTORY: 1. History of subarachnoid hemorrhage in 2000. 2. History of ischemic CVA in the past with residual right hand contraction and right-sided weakness as well as mild right facial droop. 3. History of depression. 4. History of eosinophilic fasciitis. 5. Gastroesophageal reflux disease. 6. Basal cell carcinoma. 7. Hypertension. 8. Dyslipidemia. MEDICATIONS: Includes: 1. Aspirin 81 mg daily. 2. Lipitor 80 mg daily. 3. Enalapril 2.5 mg daily. 4. Plaquenil 200 mg twice a day. 5. Ritalin 2.5 mg twice a day. 6. Protonix 40 mg daily. 7. Paxil 40 mg at bedtime. 8. Detrol LA 4 mg daily. 9. Tylenol on a p.r.n. basis. ALLERGIES: No known drug allergies. FAMILY HISTORY: Positive for both parents with stroke. SOCIAL HISTORY: The patient denies any tobacco, alcohol or drug use. She lives independently with her daughter and her daughter Angi Beaulieu is her healthcare proxy. REVIEW OF SYSTEMS: Positive for lightheadedness with change in position. Positive for occipital headache. She denies any chest pain or shortness of breath. She had been in usual state of health until today in the morning. Her speech is back to normal. She has not had any problems with GI symptoms. Denies any diarrhea, constipation, abdominal pain. The patient at baseline has right arm contracted and she is able to transfer from wheelchair to bedside commode. Approximately a week ago, Dr. Rojas placed a cast on her right lower extremity due to tendon contractions that was supposed to be removed today. Apparently, patient also has a heel ulceration underneath the placed cast. All the remaining 14 systems were reviewed with the patient, but otherwise they were negative. PHYSICAL EXAMINATION GENERAL: The patient is a pleasant 76-year-old female who is in no acute distress. The patient is alert, awake and oriented x3. VITAL SIGNS: Blood pressure of 161/86, heart rate of 86 and regular, respiratory rate 13, oxygen saturation 97% on room air, temperature of 100.3. HEENT: Head: Atraumatic, normocephalic. Eyes: Pupils equal and reactive to light and accommodation. Oropharynx clear. Mucosa moist. NECK: Supple. No JVD, no bruit bilaterally. RESPIRATORY: Clear to auscultation bilaterally. CARDIOVASCULAR: Regular rate and rhythm. No murmur. ABDOMEN: Soft, nontender. Bowel sounds present in all 4 quadrants. EXTREMITIES: There is no edema. Pulses +2 bilaterally. There is no clubbing or cyanosis. Right lower extremity is in the cast that is surrounding the entire right foot up to the level of the right knee. NEUROLOGIC: Speech clear. The patient has mild right-sided facial droop which is chronic. Her right arm is contracted which is also chronic. Right lower extremity strength is 4+/5 which is also chronic. The left side is 5/5 in the upper and lower extremities. PSYCHIATRIC: Oriented x3 with no evidence of anxiety or depression. LABORATORY DATA AND STUDIES: Include: White blood cell count 4.1, hemoglobin of 11.4, hematocrit of 33, MCV of 101 and platelet of 124. Sodium of 134, potassium 3.7, chloride 98, carbon dioxide of 31, BUN of 15, creatinine of 0.53. Liver function is unremarkable. Troponin of 0. Urinalysis is unremarkable today although it appeared cloudy. Patient's portable chest x-ray, impression: " No active cardiopulmonary disease is noted. Prominent aortic arch." Head CTA, impression: "No significant stenosis of the internal carotid arteries of the neck. Intracranial circulation demonstrates no evidence of right occlusion. No aneurysmal dilatation is noted." Brain CT, impression: "Old infarct involving the left temporal insula extending into the left basal ganglia. No intracranial mass or hemorrhage is noted. Chronic ischemic white matter change is noted. Patient's EKG showed a normal sinus rhythm with a heart rate of 83 beats per minutes with normal axis and no ST changes. ASSESSMENT AND PLAN: A 76-year-old female with a history of cerebrovascular accident and transient ischemic attack in the past, currently on aspirin, who presents with symptoms of transient aphasia that resolved within 15 minutes. Right now, neurologically she is back to her baseline which shows right-sided contraction in the right upper extremity and right-sided weakness as well as mild right facial droop. The patient is going to be placed on overnight observation with neuro checks every 2 hours. We will continue patient's aspirin and ask Dr. Gomez to see patient in consultation for further recommendations. Transthoracic echocardiogram with bubble study is going to be obtained as well as MRI of the brain. So far, the CTA of the head and neck failed to show any significant stenosis. In regards to the patient's hypertension, her enalapril is going to be held and we will institute permissive hypertension in this patient who is going to be observed for cerebrovascular accident and transient ischemic attack symptoms. In regards to patient's history of eosinophilic fasciitis, the patient has no abnormalities noted currently and is going to be continued on her Plaquenil that she takes on a b.i.d. basis. For gastroesophageal reflux disease, her PPI is going to be continued. For depression, she is going to be continued on paroxetine and Ritalin. For DVT prophylaxis, the patient is going to be placed on heparin subcutaneously. In regards to patient's right foot cast, I placed a call to Dr. Rojas and left the message with his office. The patient wishes to have the cast removed today if possible. In regards to ongoing evaluation, the patient is going to be placed for physical therapy evaluation. The patient has temperature of 100.3. A CRP is going to be added to the ED test to evaluate for possibility of ongoing infection. So far, a source of possible infection is not identified. In regards to patient's code status, the patient wishes to be do not resuscitate and MOLST is being updated right now. TIME SPENT: Approximately 73 minutes was spent on admission of this patient; more than half that time was spent [id number] with the patient during the interview and physical exam. ADDENDUM: DATE OF ADMISSION: 04/03/17 Please note that I spoke with Dr. Gomez about the patient's treatment and it was decided that the patient's aspirin is going to be switched to Plavix. The patient is going to be started on Plavix at 75 [address] today[address] Dr[address] Gomez will see the patient in consult. [id number]/[facility] #: [id number]/[facility] #: [id number] [facility]
[2017-04-03] MEDS: Clopidogrel TAB* 75 MG PO SCH (14:47)
[2017-04-03] MEDS: Heparin VIAL(*) 5000 UNITS/ML VIAL (FIVE THOUSAND) SUBCUT SCH ×2 (14:47→20:18)
--- NOTE | 2017-04-03 15:28 | CONS ---
CONSULTATION REPORT: DATE OF CONSULT: 04/03/17 PATIENT OF: Dr. Bauer and Dr. Samson. HISTORY OF PRESENT ILLNESS: Rachele is a 76-year-old woman with a history of ischemic and hemorrhagi c CVA with chronic right hand spasticity and weakness, who presented at 5:30 this morning with a 15- minute episode of being unable to speak. She still feels somewhat lightheaded and has had some occip ital headache which is now gone. She has difficulty, it sounds like, formulating words but was coherent and sounds most like an expr essive aphasia. PAST MEDICAL HISTORY: She has had a past history of subarachnoid hemorrhage in 2000, history of isc hemic CVA in the past with right-sided spasticity, depression, eosinophilic fasciitis, GERD, basal c ell carcinoma, hypertension, dyslipidemia. MEDICATIONS: On admission include, 1. Aspirin 81 mg daily 2. Lipitor 80 mg daily 3. Enalapril 2.5 daily 4. Plaquenil 200 twice a day 5. Ritalin 2.5 twice a day 6. Protonix 40 mg daily 7. Paxil 40 mg daily 8. Detrol LA 4 mg daily 9. Tylenol p.r.n. ALLERGIES: She has no known allergies. FAMILY HISTORY: Significant for both parents with stroke. SOCIAL HISTORY: She does smoke, drink, or use drugs. She lives independently with her daughter. REVIEW OF SYSTEMS: Negative in all 14 spheres other than in the HPI. Of note, she has a cast in he r right lower extremity secondary to tendon contractions; this was done about a week ago. PHYSICAL EXAM: Temperature 98.6, pulse 79, respirations 16, blood pressure 140/83. She is alert and oriented with normal naming, orientation. Speech I felt is minimally hesitant but she said it was her baseline. Cranial nerves II through XII showed a mild right facial weakness, otherwise is intac t. Discs are sharp. She had a contracted spastic right upper extremity with 2/5 strength in the le g with the cast and her strength appeared full but I could not test at the ankle. Left side was 5/5 . Sensation is intact to light touch. Chest: Clear. Cardiovascular: Regular rate and rhythm. Ab domen: Soft with positive bowel sounds. Reflexes were 1 other than brisk reflexes in the right arm . No rashes or edema. DIAGNOSTIC STUDIES/LAB DATA: Her CTA showed no significant carotid stenosis and no significant intr acranial abnormalities. Her CT scan showed an old left temporal infarct with chronic white matter c hanges as well. Sed rate 19, white count 4.1, hematocrit 33, platelets 124. Normal INR and PTT. Normal CMP. LDL wa s 47. She had an echo in August, which showed normal atrial size. Negative bubble study. Mild m itral regurgitation. [id number] tricuspid regurgitation. No clot seen. IMPRESSION: Repeat echo and MRI scan have been ordered. I am getting an EEG since it is possible, given the brevity, this could have been seizure. I think, however, much more likely this was a TIA and we are switching her aspirin to Plavix. If she does well, she will be able to go home after a p eriod of further observation. Thank you for sharing her case. [id number]/[facility] #: [id number]
--- NOTE | 2017-04-03 17:00 | ECHO ---
Patient: MARY PAGE [facility] Rec#: [id number] : 1940 Date: 04/03/2017 Age: 76y Height: 165.1 cm / 65.0 in Weight: 43.09 kg / 95.0 lbs Sex: F BSA: 1.44 Room#: 435 Admit Date#: 04/03/2017 Type: Inpatient Referring: Margaret Samson MD Reading: Mickey Cutler MD Chief Mechanical Engineer: Tianna FelixJH CC: Bina Bauer MD Transthoracic Echocardiogram Indication: TIA BP: 163/87 HR: 67 Rhythm: NSR Indications Cerebrovascular Disease Findings History: HTN, TIA, CVA 09/03, basal cell cancer, subarachnoid hemorrahage 2000. Technical Comments: The study quality is fair. Completed at 1630. Left Ventricle: The left ventricular chamber size is normal. There is no left ventricular hypertrophy. There is increased basal septal hypertrophy noted without evidence of an increased gradient across the left ventricular outflow tract. c/w a sigmoid septum. Global left ventricular wall motion and contractility are within normal limits. There is normal left ventricular systolic function. The estimated ejection fraction is 55-60%. Abnormal left ventricular diastolic function is observed. Left Atrium: The left atrium is mildly dilated. Right Ventricle: Moderator Band present. The right ventricular cavity size is normal. The right ventricular global systolic function is normal. Right Atrium: The right atrium is mildly dilated. There is evidence of an atrial septal aneurysm. Aortic Valve: The aortic valve is trileaflet. The aortic valve leaflets are mildly thickened. There is a trace of aortic regurgitation. There is no evidence of aortic stenosis. Mitral Valve: The mitral valve leaflets are mildly thickened.redundant mobile chordae seen attached to the midportion of the subvalvular structure of the anteiror leaflet (possible ruptured chordae). There is mild mitral regurgitation. There is no evidence of mitral stenosis. Tricuspid Valve: The tricuspid valve leaflets are normal. There is moderate tricuspid regurgitation. There is evidence of mild pulmonary hypertension. There is no tricuspid stenosis. Pulmonic Valve: The pulmonic valve appears normal. There is a trace pulmonic regurgitation. There is no pulmonic stenosis. Pericardium: There is no significant pericardial effusion. Aorta: There is no dilatation of the ascending aorta. There is no dilatation of the aortic arch. There is no dilation of the aortic root. Pulmonary Artery: The main pulmonary artery is not well visualized. Venous: The inferior vena cava appears normal in size. There is a greater than 50% respiratory change in the inferior vena cava dimension. Conclusions There is increased basal septal hypertrophy noted without evidence of an increased gradient across the left ventricular outflow tract. c/w a sigmoid septum. The estimated ejection fraction is 55-60%. Abnormal left ventricular diastolic function is observed. The left atrium is mildly dilated. The aortic valve leaflets are mildly thickened. The mitral valve leaflets are mildly thickened Redundant mobile chordae seen attached to the midportion of the subvalvular structure of the anteiror leaflet (possible ruptured chordae). There is mild mitral regurgitation. There is moderate tricuspid regurgitation. There is evidence of mild pulmonary hypertension. Similar to 08/2016. Measurements Name Value Normal Range RVIDd (AP) 2D 2.8 cm (0.9 - 2.6) RVDdMajor (2D) 3.2 cm (2.2 - 4.4) RAd ISD 4CH 5 cm (3.4 - 4.9) RA (A4C)W 3.9 cm (2.9 - 4.6) IVSd (2D) 1 cm (0.6 - 1) LVPWd (2D) 1 cm (0.6 - 1) LVIDd (2D) 3.9 cm (3.6 - 5.4) LVIDs (2D) 2.8 cm - LV FS (2D) 29 % (25 - 45) Aortic Annulus 2.1 cm (1.4 - 2.6) Ao root diameter (2D) 3.1 cm (2.1 - 3.5) Ascending Ao 2.7 cm (2.1 - 3.4) Aortic arch 2.1 cm (1.8 - 3.4) LA dimension (AP) 2D 2.9 cm (2.3 - 3.8) LAd ISD 4CH 4.9 cm (2.9 - 5.3) LA ISD 4CH W 4.4 cm (2.5 - 4.5) Name Value Normal Range LA ESV SP 4CH (A/L) 67 ml - LA ESV SP 2CH (A/L) 45 ml - LA ESV BP (A/L) 55 ml - LA ESV BP (A/L) index 38.23 ml/m2 - LA ESV SP 4CH (MOD) 60 ml - LA ESV SP 2CH (MOD) 43 ml - Name Value Normal Range MV E-wave Vmax 0.3 m/sec - MV deceleration time 234.7 msec - MV A-wave Vmax 0.56 m/sec - MV E:A ratio 0.52 ratio - LV septal e' Vmax 0.06 m/sec - LV lateral e' Vmax 0.09 m/sec - LV E:e' septal ratio 5 ratio - LV E:e' lateral ratio 3.33 ratio - Name Value Normal Range AV Vmax 1.2 m/sec - AV VTI 20.6 cm - AV peak gradient 5.47 mmHg - AV mean gradient 2.68 mmHg - LVOT Vmax 0.91 m/sec - LVOT VTI 17.4 cm - LVOT peak gradient 3.31 mmHg - LVOT mean gradient 1.88 mmHg - BISMARK Vmax 0.47 m/sec - Name Value Normal Range TR Vmax 3.02 m/sec - TR peak gradient 36 mmHg - RAP 3 mmHg - RVSP 39 mmHg - IVC diameter 1.6 cm - Name Value Normal Range PV Vmax 0.75 m/sec - PV peak gradient 2.23 mmHg -
--- NOTE | 2017-04-03 17:09 | RAD ---
HISTORY: Stroke, right-sided weakness COMPARISONS: CT dated April 03, 2017 TECHNIQUE: The following sequences were obtained of the head: Sagittal T1-weighted images, axial T2-weighted images, axial FLAIR images, axial susceptibility weighted images, axial T1-weighted images. Additionally, axial diffusion-weighted images were obtained with calculated apparent diffusion coefficients. FINDINGS: HEMORRHAGE/INFARCT: There is no hemorrhage or acute infarct. MASSES/SHIFT: There is no mass or shift. EXTRA-AXIAL SPACES/MENINGES: There are no extra-axial fluid collections. SULCI AND VENTRICLES: There is diffuse and proportional enlargement of the sulci and ventricles. CEREBRUM: There are focal areas of consolidation consistent with remote infarct in the left and right frontal periventricular white matter. There is diffuse multifocal elevated T2/FLAIR signal in the periventricular and subcortical white matter. BRAINSTEM: There is elevated T2/FLAIR signal in the left cerebral peduncle and arnold consistent with medullary degeneration. CEREBELLUM: There are no focal parenchymal abnormalities. The cerebellar tonsils are normal in size and position. SELLA: The sella is normal. PINEAL: The pineal region is clear. CP ANGLE/TEMPORAL BONES: The labyrinthine structures are grossly normal. VESSELS: Normal flow-voids are noted within the visualized vertebral vasculature. DIFFUSION ABNORMALITIES: There are no diffusion abnormalities. PARANASAL SINUSES/MASTOIDS: The paranasal sinuses are clear. ORBITS: The orbits are unremarkable. BONES AND SOFT TISSUE: No bone or soft tissue abnormalities are noted. OTHER: None IMPRESSION: 1. DIFFUSE INVOLUTIONAL CHANGE WITH MULTIFOCAL REMOTE INFARCTS AND CHRONIC SMALL VESSEL ISCHEMIC CHANGES. 2. NO RESTRICTED DIFFUSION TO SUGGEST ACUTE INFARCT
[2017-04-03] MEDS: Hydroxychloroquine TAB* 200 MG PO SCH (20:17)
[2017-04-03] MEDS: Methylphenidate TAB* 5 MG PO SCH (20:17)
[2017-04-03] MEDS: tiZANidine TAB* 2 MG PO SCH (20:28)
[2017-04-03] MEDS ORDERED: Atorvastatin* 80 MG TAB PO SCH (21:00)
[2017-04-03] MEDS ORDERED: PARoxetine HCL TAB* 40 MG PO SCH (21:00)
[2017-04-03] MEDS ORDERED: Aspirin EC Low Dose* 81 MG TAB.EC PO SCH (21:00)
--- NOTE | 2017-04-03 21:47 | EEG ---
ELECTROENCEPHALOGRAPHY: DATE OF STUDY: 04/03/17 - ROOM #435 PATIENT OF: Margaret Samson MD and Wu Gomez MD. HISTORY: This is a 76-year-old being evaluated for 15 minutes of aphasia to screen for seizures most likely this to be TIA. MEDICATIONS: Include: 1. Potassium. 2. Lipitor. 3. Enalapril. 4. Plaquenil. 5. Ritalin. 6. Protonix. 7. Plavix. 8. Detrol 9. Tylenol. INTERPRETATION: With the patient awake, background cerebral activity consists of moderate amplitude posterior dominant 8 to 9 Hz rhythm, which attenuates with eye opening and reappears with eye closure. The patient never falls asleep. No epileptiform potentials, focal abnormalities, or major asymmetries of background are noted. IMPRESSION: This awake EEG is within normal limits. [id number]/[facility] #: [id number] MTDD
[2017-04-04] MEDS: tiZANidine TAB* 2 MG PO SCH (05:22)
[2017-04-04] MEDS: Heparin VIAL(*) 5000 UNITS/ML VIAL (FIVE THOUSAND) SUBCUT SCH (05:27)
[2017-04-04 07:00] LABS: Hematocrit 32 % (35-47); Hemoglobin 11.2 g/dl (12.0-16.0); Mean Corpuscular HGB Conc 35 g/dl (31-36); Mean Corpuscular Hemoglobin 35 pg (27-31); Mean Corpuscular Volume 101 fL (80-97); Mean Platelet Volume 6 um3 (7.4-10.4); Red Blood Count 3.16 10^6/ul (4.0-5.4); Red Cell Distribution Width 21 % (10.5-15); White Blood Count 2.9 10^3/ul (3.5-10.8)
[2017-04-04 07:01] LABS: Add Diff/Slide Review? Slide Review Added; Comments Flag Yes
[2017-04-04 07:06] LABS: Calcium 9.1 mg/dL (8.6-10.3); EGFR African American 233.5 (>60); EGFR Non-African American 181.5 (>60); Potassium 3.5 mmol/L (3.5-5.0)
[2017-04-04] MEDS ORDERED: Pantoprazole TAB (NF) 40 MG TAB PO SCH (07:30)
[2017-04-04 07:35] VITALS: BP 124/81
[2017-04-04] MEDS: Hydroxychloroquine TAB* 200 MG PO SCH (08:08)
[2017-04-04] MEDS: Clopidogrel TAB* 75 MG PO SCH (08:08)
[2017-04-04] MEDS: Methylphenidate TAB* 5 MG PO SCH (08:09)
--- NOTE | 2017-04-04 16:12 | DS ---
CC: Dr. Bauer; Dr. Rojas. * DISCHARGE SUMMARY: DATE OF ADMISSION: 04/03/17 DATE OF DISCHARGE: 04/04/17 PRIMARY CARE PROVIDER: Dr. Bauer. DISCHARGE DIAGNOSIS: An episode of aphasia, lasted 15 minutes, most likely due to transient ischemic attack. SECONDARY DIAGNOSES: 1. History of subarachnoid hemorrhage in 2000. 2. 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 3. History of depression. 4. History of eosinophilic fasciitis. 5. Gastroesophageal reflux disease. 6. Basal cell carcinoma. 7. Hypertension. 8. Dyslipidemia. MEDICATIONS AT DISCHARGE: Include: 1. Lipitor 80 mg daily. 2. Enalapril 2.5 mg daily. 3. Plaquenil 200 mg twice a day. 4. Ritalin 2.5 mg twice a day. 5. Protonix 40 mg daily. 6. Paxil 40 mg at bedtime. 7. Detrol LA 4 mg daily. 8. Tylenol on a p.r.n. basis. 9. Plavix 75 mg daily. Discontinue aspirin. CONSULTATIONS DURING THE HOSPITAL STAY: Included Dr. Gomez from Neurology. LABORATORY DATA AND STUDIES PERFORMED DURING THE HOSPITAL STAY: On 04/04/17, white blood cell count 2.9, hemoglobin 11.2, hematocrit of 32 and platelets of 114. The patient's ESR was 19 on presentation. Sodium was 137, potassium 3.5, chloride 104, carbon dioxide 26, BUN 7, creatinine 0.35. Cholesterol profile showed triglycerides of 34, cholesterol total of 122, LDL of 47, HDL of 67. The patient's C-reactive protein was below 1. Urinalysis was unremarkable. Transthoracic echocardiogram showed EF of 55% to 60%, with increased basal septal hypertrophy, without evidence of an increased gradient across the left ventricular outflow tract. There was redundant mobile chords seen attached to mid portion of the subvalvular structure of the anterior leaflet, possibly of ruptured chordae. There is mild mitral regurgitation. There is moderate tricuspid regurgitation. There was evidence of mild pulmonary hypertension. The echo was noted to be similar to the one from August 2016. Please also note that in August 2016, patient's bubble study showed no evidence of patent foramen ovale. EEG obtained on 04/03/17, impression: "This awake EEG is within normal limits. " Brain MRI on 04/03/17, impression: "Diffuse involutional change with multifocal remote infarcts and chronic small vessel ischemic changes. No restricted diffusion to suggest acute infarct." Head CTA, impression: "No significant stenosis of the internal carotid arteries of the neck. Intracranial circulation demonstrates no evidence of branch occlusion, no aneurysmal dilation is noted." HOSPITALIZATION COURSE: Rachele Beaulieu is a 76-year-old female with history of an old ischemic CVA with residual right hand contracted and right-sided weakness , who usually transfers by herself to the wheelchair and back, at home. Patient presented after an episode of aphasia that lasted approximately 15 minutes and headache afterwards. She was placed on overnight observation. Dr. Gomez was consulted and recommended EEG, MRI, and CT angiograms as mentioned above. All of the studies performed were negative. The patient had a bubble echocardiogram done in August 2016, which was also negative for patent foramen ovale at that point. Yesterday's echocardiogram was as noted above. Shortly patient was observed on telemetry monitored bed, with no evidence of marked arrhythmias apart from PACs. She did well overnight. Her headache resolved and she had no new neurological symptoms. She is going to be discharged home with recommendation to follow up with her primary care provider in approximately 4 to 7 days. PHYSICAL EXAM AT THE TIME OF DISCHARGE: Unchanged from admission. [id number]/[facility] #: [id number] DEBORAH
== END 2017-04-04 10:50 | disposition home or self-care (01) ==
LOC: ED 07:34 → MEDTELE 09:26
PROVIDERS: ADMIT Internal Medicine; ATTEND Internal Medicine
DX: R47.01 Aphasia (principal); I69.351 Hemiplegia and hemiparesis following cerebral infarction affecting right dominant side; F32.9 Major depressive disorder, single episode, unspecified; K21.9 Gastro-esophageal reflux disease without esophagitis; I10 Essential (primary) hypertension; E78.5 Hyperlipidemia, unspecified; Z79.82 Long term (current) use of aspirin; Z79.899 Other long term (current) drug therapy; Z79.01 Long term (current) use of anticoagulants
CPT/HCPCS: 36415; 70450; 70496; 70498; 70551; 71010; 80048; 80053; 80061; 81003; 83605; 84484; 85025; 85610; 85652; 85730; 86140; 86850; 86900; 86901; 93005; 93306; 95816; 96360; 96361; 96372; 99284; A9270-GY; G0378; G8978-GP-CJ; G8979-GP-CI; G8980-GP-CJ; G8987-GO-CL; G8988-GO-CI; J1644; Q9967

== ENCOUNTER 2017-06-29 06:38 | Day surgery (SDC) | payer MEDICARE ==
[~2017-06-29 06:38] MED LIST: Buffered Lidocaine 0.9% SYRIN* 5 ML/SYR SYRINGE INTRADERM ONE
[2017-06-29] MEDS ORDERED: Buffered Lidocaine 0.9% SYRIN* 5 ML/SYR SYRINGE ONE (06:46)
[2017-06-29] MEDS ORDERED: ceFAZolin 2 GM PREMIX (*) 50 ML IVPB ONE (06:46)
[2017-06-29] MEDS ORDERED: Bupivacaine 0.5% SDV PF* 30 ML VIAL ONE (07:40)
[2017-06-29] MEDS ORDERED: Lidocaine 2% PF* 10 ML AMP ONE (07:40)
[2017-06-29] MEDS ORDERED: fentaNYL* 50 MCG/ML 2 ML VIAL (100 MCG VIAL) ONE (08:02)
[2017-06-29] MEDS ORDERED: Propofol* 10 MG/ML 20 ML BTL IV PUSH ONE (08:02)
[2017-06-29] MEDS ORDERED: Lidocaine 2% PF * 5 ML VIAL ONE (08:02)
[2017-06-29] MEDS ORDERED: fentaNYL* 50 MCG/ML 2 ML VIAL (100 MCG VIAL) IV PRN (08:30)
[2017-06-29] MEDS ORDERED: DiMENhydriNATE IV* 50 MG/ML VIAL IV PUSH PRN (08:30)
[2017-06-29] MEDS ORDERED: oxyCODONE/Acetamin 5/325 MG* TAB PO PRN (08:30)
[2017-06-29 09:49] VITALS: BP 145/84
--- NOTE | 2017-06-30 03:06 | OP ---
DATE OF OPERATION: 06/29/17 - MERGED WITH [facility] DATE OF : 42 SURGEON: Gurpreet Rojas MD SEWAGE DISPOSAL ENGINEER: Vanesa Ochoa PA-C ANESTHESIOLOGIST: Kirk Cross MD ANESTHESIA: General PRE-OP DIAGNOSIS: Tight shortened right tendon Achilles, previous hemiparesis. POST-OP DIAGNOSIS: Tight shortened right tendon Achilles, previous hemiparesis. OPERATIVE PROCEDURE: Right tendon Achilles lengthening. DESCRIPTION OF PROCEDURE: The patient was taken to the operating room where 8 cm longitudinal incision was made medial to the Achilles in the supine position. We performed Z lengthening of the Achilles approximately 6 cm in length, brought the ankle up to a neutral position and then sewed the lengthened sides of the tendon with a running 0 Vicryl suture. We then irrigated soft tissues closing with 2-0 Vicryl, ce for the skin, and a compression dressing followed by a fiberglass cast. [id number]/[facility] #: [id number] MTDD
== END 2017-06-29 10:16 | disposition home or self-care (01) ==
LOC: OR 06:38
PROVIDERS: ATTEND Orthopaedic Surgery
DX: M67.01 Short Achilles tendon (acquired), right ankle (principal); I69.351 Hemiplegia and hemiparesis following cerebral infarction affecting right dominant side; Z79.02 Long term (current) use of antithrombotics/antiplatelets; Z87.891 Personal history of nicotine dependence; F32.9 Major depressive disorder, single episode, unspecified; F41.9 Anxiety disorder, unspecified; Z85.828 Personal history of other malignant neoplasm of skin; E53.8 Deficiency of other specified B group vitamins; I10 Essential (primary) hypertension
CPT/HCPCS: J0690; J2001; J2704; J3010

== ENCOUNTER 2017-11-06 07:34 | Emergency (ER) | payer MEDICARE ==
--- OUTSIDE RECORDS SUMMARY | 2017-11-06 07:42 | XMS REPORT ---
:1940 External Reference #:[id number] Author Organization [facility] [employer] Address [address] [address] Phone [phone] Care Team Providers Name Role Phone Bina Bauer MD Primary Care Physician Unavailable Payers Type Date Identification Numbers Payment Provider Subscriber Health Maintenance Policy Number: Medicare Blue Ppo Rachele Martínez (O) [id number] Group Number: [id number] [address] [address] PayID: [id number] [place] [address] Problems Date Description Provider Status Onset: 03/02/2014 Colitis, enteritis and gastroenteritis Sandro Astudillo M.D. Active presumed infectious Onset: 03/02/2014 Myalgia & Myositis Unspec Sandro Astudillo M.D. Active Onset: 03/02/2014 Dyspnea Sandro Astudillo M.D. Active Onset: 09/13/2014 Multiple joint pain Sandro Astudillo M.D. Active Onset: 09/13/2014 Immunologic Sandro Astudillo M.D. Active Onset: 09/13/2014 Leukopenia Sandro Astudillo M.D. Active Onset: 09/13/2014 Anemia Sandro Astudillo M.D. Active Onset: 10/04/2014 Taking medication Sandro Astudillo M.D. Active Onset: 10/04/2014 Rheumatoid arthritis Sandro Astudillo M.D. Active Onset: 03/05/2015 Chest pain Sandro Astudillo M.D. Active Onset: 03/05/2015 Eruption Sandro Astudillo M.D. Active Onset: 03/11/2017 Prosthetic arthroplasty of the hip Luzma Hathaway M.D. Active Onset: 03/13/2017 Contracture of wrist joint Gurpreet Pires MD Active Onset: 03/13/2017 Contracture of joint of hand Gurpreet Pires MD Active Family History Date Family Member(s) Problem(s) Comments Mother Stroke Social History Type Date Description Comments Lives With alone Occupation Retired ETOH Use consumes 1-2 glasses of wine per day Smoking Patient is a former smoker Recreational Drug Use Never Used Drugs Exercise Type/Frequency Exercises regularly Allergies, Adverse Reactions, Alerts Date Description Reaction Status Severity Comments 02/28/2014 NKDA active 02/28/2014 Bee Sting active Medications Medication Date Status Form Strength Qnty SIG Indications Ordering Provider Cyclobenzaprine HCL 03/11/ Active Tablets 10mg 60tab 1 tablet M25.551 Lzuma 2016 s by mouth Rivas, q8 hours M.D. as needed muscle spasms Paroxetine HCL / Active Tablets 40mg 30tab qd Unknown 0000 s Epipen 2-Naresh / Active Solution 0.3mg/0.3 2unit sc as Unknown 0000 Auto-Inje ML s needed ct Hydroxychloroquine / Active Tablets 200mg take one Unknown Sulfate 0000 tablet by mouth twice a day Lipitor / Active Tablets 80mg 1 by Unknown 0000 mouth every night at bedtime Enalapril Maleate / Active Tablets 2.5mg take one Unknown 0000 tablet by mouth twice daily Methylphenidate HCL / Active Tablets 5mg 1/2 Unknown 0000 tablet by mouth twice a day (in morning and early afternoo n) Tolterodine Tartrate / Active Caps ER 4mg Take One Unknown ER 0000 24HR Capsule By Mouth Every Day For Urine Magnesium Oxide -MG / Active Capsules 400mg 1 by Unknown Supplement 0000 mouth every day Plavix / Active 1 tab Unknown 0000 daily Multivitamin Adult / Active Tablets 1 by Unknown 0000 mouth every day Vitamin D3 Super / Active Capsules 2000Unit 1 by Unknown Strength 0000 mouth every day Vitamin B12 / Active Tablets 100mcg 1 by Unknown 0000 mouth every day Detrol 00/ Active Tablets 1mg 1 tablet Unknown 0000 daily Pantoprazole Sodium / Active Tablets 20mg [address] mouth every day Oxycodone HCL 06/29/ Hx Tablets 5mg 30tab 1-2 tabs Gurpreet 2016 - s by mouth Bob 07/23/ every M.D. 2017 4-6 hours as needed Rifampin 04/18/ Hx Capsules 300mg 60cap 1 cap by R76.12 Marc 2015 - s mouth D. 02/08/ twice Macqueen, 2016 daily M.D. Hydroxychloroquine 10/04/ Hx Tablets 200mg 50tab 1 10/20 719.49 Sandro Sulfate 2014 - s daily Endo, 12/29/ M.DDamaso 2014 Multi Complete/Iron / Hx Tablets daily Unknown 0000 - 2016 Vitamin D-3 / Hx Capsules 1000Unit 90cap 2 by Unknown 0000 - s mouth 2016 day Calcium 500 + D / Hx Tablets 500-125mg 1 by Unknown 0000 - -Unit mouth 2016 day Vitamin B-12 / Hx Tablets 1000mcg 1 by Unknown 0000 - mouth 2016 day Protonix / Hx Tablets 40mg 30tab 1 by Unknown 0000 - DR s mouth 2016 day Aspirin / Hx Tablets 81mg 1 by Unknown 0000 - mouth 04/07/ prn 2016 Ibandronate Sodium / Hx Tablets 150mg take 1 Unknown 0000 - tablet 04/17/ by mouth 2015 once a month Triamterene/Hydrochl / Hx Tablets 37.5-25mg 1 by Unknown orothiazide 0000 - mouth 2016 day Folic Acid / Hx Tablets 1mg 1 by Unknown 0000 - mouth 03/19/ 2015 day Clotrimazole/Betamet / Hx Cream 1-0.05% apply 2 Unknown hasone Dipropionate 0000 - - 3 03/19/ times 2015 daily as needed Prednisone / Hx Tablets 10mg 1.5 tab Unknown 0000 - per day 2015 Ranitidine HCL / Hx Tablets 75mg bid Unknown 0000 - 2016 Vital Signs Date Vital Result Comment 10/28/2017 Height 65 inches 5'5" Heart Rate 69 /min Respiratory Rate 20 /min Body Temperature 98.3 F Pain Level 0 10/06/2017 Height 65 inches 5'5" Weight 105.00 lb Heart Rate 82 /min BP Systolic 118 mmHg BP Diastolic 68 mmHg Body Temperature 97.8 F Pain Level 1 BMI (Body Mass Index) 17.5 kg/m2 09/18/2017 Height 65 inches 5'5" Weight 105.00 lb Heart Rate 60 /min BP Systolic 120 mmHg BP Diastolic 70 mmHg Body Temperature 97.0 F Pain Level 3 BMI (Body Mass Index) 17.5 kg/m2 09/07/2017 Height 65 inches 5'5" Weight 105.00 lb Heart Rate 68 /min BP Systolic 122 mmHg BP Diastolic 78 mmHg Body Temperature 98.2 F Pain Level 0 BMI (Body Mass Index) 17.5 kg/m2 07/24/2017 Heart Rate 68 /min BP Systolic Sitting 120 mmHg BP Diastolic Sitting 80 mmHg Body Temperature 99.4 F 07/09/2017 Height 65 inches 5'5" Weight 105.00 lb BP Systolic 124 mmHg BP Diastolic 76 mmHg Respiratory Rate 18 /min Body Temperature 98.2 F Pain Level 0 BMI (Body Mass Index) 17.5 kg/m2 06/23/2017 Height 65 inches 5'5" Weight 105.00 lb Heart Rate 76 /min BP Systolic Sitting 144 mmHg BP Diastolic Sitting 90 mmHg Respiratory Rate 16 /min BMI (Body Mass Index) 17.5 kg/m2 06/12/2017 Height 65 inches 5'5" Weight 105.00 lb Respiratory Rate 16 /min Pain Level 0 BMI (Body Mass Index) 17.5 kg/m2 05/22/2017 Height 65 inches 5'5" Weight 105.00 lb Heart Rate 76 /min BP Systolic Sitting 154 mmHg BP Diastolic Sitting 88 mmHg Respiratory Rate 16 /min Body Temperature 97.1 F Pain Level 0 BMI (Body Mass Index) 17.5 kg/m2 05/06/2017 Height 65 inches 5'5" Weight 100.00 lb Heart Rate 76 /min BP Systolic 130 mmHg BP Diastolic 80 mmHg Respiratory Rate 15 /min Body Temperature 97.7 F Pain Level 0 BMI (Body Mass Index) 16.6 kg/m2 04/07/2017 Height 65 inches 5'5" Weight 100.00 lb BP Systolic 118 mmHg BP Diastolic 79 mmHg Body Temperature 98.3 F Pain Level 0 BMI (Body Mass Index) 16.6 kg/m2 03/25/2017 Height 65 inches 5'5" Weight 100.00 lb BP Systolic 140 mmHg BP Diastolic 100 mmHg Body Temperature 98.0 F Pain Level 0 BMI (Body Mass Index) 16.6 kg/m2 03/13/2017 Height 65 inches 5'5" Weight 100.00 lb Heart Rate 92 /min BP Systolic 138 mmHg BP Diastolic 95 mmHg Respiratory Rate 12 /min BMI (Body Mass Index) 16.6 kg/m2 03/12/2017 Height 65 inches 5'5" Weight 100.00 lb BP Systolic 118 mmHg BP Diastolic 88 mmHg Body Temperature 98.1 F Pain Level 0 8 when laying down BMI (Body Mass Index) 16.6 kg/m2 03/11/2017 Height 65 inches 5'5" Weight 100.00 lb BP Systolic 141 mmHg BP Diastolic 90 mmHg Respiratory Rate 15 /min Pain Level 5 BMI (Body Mass Index) 16.6 kg/m2 02/09/2017 Height 65 inches 5'5" Weight 100.00 lb Heart Rate 90 /min BP Systolic 118 mmHg BP Diastolic 81 mmHg Body Temperature 98.3 F Pain Level 1 BMI (Body Mass Index) 16.6 kg/m2 07/15/2016 Height 65 inches 5'5" Weight 106.00 lb Heart Rate 74 /min BP Systolic Sitting 118 mmHg BP Diastolic Sitting 80 mmHg Respiratory Rate 14 /min Body Temperature 98.0 F O2 % BldC Oximetry 96 % BMI (Body Mass Index) 17.6 kg/m2 05/20/2016 Height 65 inches 5'5" Weight 105.12 lb Heart Rate 77 /min BP Systolic Sitting 110 mmHg BP Diastolic Sitting 68 mmHg Respiratory Rate 14 /min Body Temperature 97.6 F O2 % BldC Oximetry 98 % BMI (Body Mass Index) 17.5 kg/m2 04/18/2016 Height 65 inches 5'5" Weight 105.00 lb Heart Rate 66 /min BP Systolic Sitting 128 mmHg BP Diastolic Sitting 62 mmHg Respiratory Rate 14 /min Body Temperature 98.3 F BMI (Body Mass Index) 17.5 kg/m2 03/05/2015 Height 65 inches 5'5" Weight 113.50 lb Heart Rate 98 /min BP Systolic Sitting 104 mmHg BP Diastolic Sitting 68 mmHg Respiratory Rate 14 /min Pain Level 14 BMI (Body Mass Index) 18.9 kg/m2 12/29/2014 Height 65 inches 5'5" Weight 114.00 lb Heart Rate 76 /min BP Systolic Sitting 120 mmHg BP Diastolic Sitting 70 mmHg Pain Level 2 BMI (Body Mass Index) 19.0 kg/m2 10/04/2014 Height 65 inches 5'5" Weight 114.00 lb Heart Rate 70 /min BP Systolic Sitting 122 mmHg BP Diastolic Sitting 80 mmHg Pain Level 1 BMI (Body Mass Index) 19.0 kg/m2 09/13/2014 Height 65 inches 5'5" Weight 114.00 lb Heart Rate 78 /min BP Systolic Sitting 142 mmHg BP Diastolic Sitting 80 mmHg Pain Level 2 BMI (Body Mass Index) 19.0 kg/m2 08/02/2014 Height 65 inches 5'5" Weight 115.00 lb Heart Rate 62 /min BP Systolic Sitting 110 mmHg BP Diastolic Sitting 70 mmHg Respiratory Rate 16 /min BMI (Body Mass Index) 19.1 kg/m2 07/24/2014 Height 65 inches 5'5" Weight 115.00 lb Heart Rate 88 /min BP Systolic Sitting 130 mmHg BP Diastolic Sitting 88 mmHg Respiratory Rate 16 /min BMI (Body Mass Index) 19.1 kg/m2 04/07/2014 Height 65 inches 5'5" Weight 115.00 lb Heart Rate 88 /min BP Systolic Sitting 138 mmHg BP Diastolic Sitting 80 mmHg Pain Level 0 BMI (Body Mass Index) 19.1 kg/m2 03/02/2014 Weight 112.00 lb Heart Rate 68 /min BP Systolic Sitting 112 mmHg BP Diastolic Sitting 76 mmHg Results Test Date Test Result H/L Range Note Type & Screen 01/20/2017 Patient Blood Type B Positive 1 Antibody Screen NEGATIVE 1 Laboratory test 01/20/2017 Packed Cells SEE RESULTS BELO 1, 2 finding <SEE NOTE> CBC Auto Diff 07/17/2016 White Blood Count 3.2 10^3/uL Low 3.5-10.8 3 Red Blood Count 3.60 10^6/uL Low 4.0-5.4 Hemoglobin 12.0 g/dL 12.0-16.0 Hematocrit 34 % Low 35-47 Mean Corpuscular Volume 94 fL 80-97 Mean Corpuscular Hemoglobin 33 pg High 27-31 Mean Corpuscular HGB Conc 35 g/dL 31-36 Red Cell Distribution Width 17 % High 10.5-15 Platelet Count 177 10^3/uL 150-450 Mean Platelet Volume 6 um3 Low 7.4-10.4 Abs Neutrophils 1.4 10^3/uL Low 1.5-7.7 Abs Lymphocytes 1.1 10^3/uL 1.0-4.8 Abs Monocytes 0.6 10^3/uL 0-0.8 Abs Eosinophils 0 10^3/uL 0-0.6 Abs Basophils 0 10^3/uL 0-0.2 Abs Nucleated RBC 0.01 10^3/uL Granulocyte % 42.8 % 38-83 Lymphocyte % 35.5 % 25-47 Monocyte % 19.4 % High 1-9 Eosinophil % 1.4 % 0-6 Basophil % 0.9 % 0-2 Nucleated Red Blood Cells % 0.2 Basic Metabolic Panel 07/17/2016 Sodium 132 mmol/L Low 133-145 Potassium 4.4 mmol/L 3.5-5.0 Chloride 95 mmol/L Low 101-111 Co2 Carbon Dioxide 32 mmol/L 22-32 Anion Gap 5 mmol/L 2-11 Glucose 92 mg/dL 70-100 Blood Urea Nitrogen 12 mg/dL 6-24 Creatinine 0.54 mg/dL 0.51-0.95 BUN/Creatinine Ratio 22.2 High 8-20 Calcium 9.2 mg/dL 8.6-10.3 Egfr Non- 110.4 >60 Egfr 141.9 >60 4 Liver Function Panel 07/17/2016 Total Protein 7.0 g/dL 6.4-8.9 Albumin 3.9 g/dL 3.2-5.2 Globulin 3.1 g/dL 2-4 Albumin/Globulin Ratio 1.3 1-3 Total Bilirubin 0.50 mg/dL 0.2-1.0 Direct Bilirubin 0.10 mg/dL 0.03-0.18 Indirect Bilirubin 0.4 mg/dL 0.3-1.0 Alkaline Phosphatase 66 U/L 34-104 Alt 15 U/L 7-52 Ast 21 U/L 13-39 Liver Function Panel 05/20/2016 Total Protein 6.4 g/dL 6.4-8.9 Albumin 3.6 g/dL 3.2-5.2 Globulin 2.8 g/dL 2-4 Albumin/Globulin Ratio 1.3 1-3 Total Bilirubin 0.50 mg/dL 0.2-1.0 Direct Bilirubin 0.10 mg/dL 0.03-0.18 Indirect Bilirubin 0.4 mg/dL 0.3-1.0 Alkaline Phosphatase 63 U/L 34-104 Alt 12 U/L 7-52 Ast 19 U/L 13-39 CBC Auto Diff 05/20/2016 White Blood Count 3.0 10^3/uL Low 3.5-10.8 5 Red Blood Count 3.49 10^6/uL Low 4.0-5.4 Hemoglobin 11.5 g/dL Low 12.0-16.0 Hematocrit 32 % Low 35-47 Mean Corpuscular Volume 92 fL 80-97 Mean Corpuscular Hemoglobin 33 pg High 27-31 Mean Corpuscular HGB Conc 36 g/dL 31-36 Red Cell Distribution Width 17 % High 10.5-15 Platelet Count 188 10^3/uL 150-450 Mean Platelet Volume 6 um3 Low 7.4-10.4 Abs Neutrophils 1.2 10^3/uL Low 1.5-7.7 Abs Lymphocytes 1.1 10^3/uL 1.0-4.8 Abs Monocytes 0.6 10^3/uL 0-0.8 Abs Eosinophils 0.1 10^3/uL 0-0.6 Abs Basophils 0 10^3/uL 0-0.2 Abs Nucleated RBC 0.01 10^3/uL Granulocyte % 38.9 % 38-83 Lymphocyte % 36.6 % 25-47 Monocyte % 21.1 % High 1-9 Eosinophil % 2.4 % 0-6 Basophil % 1.0 % 0-2 Nucleated Red Blood Cells % 0.2 Laboratory test finding 01/03/2015 C Reactive Protein 9.23 mg/L High < 5.00 6 Erythrocyte Sed Rate 68 mm/Hr High 0-40 Rheumatoid Factor 17 IU/mL <15 7 Cyclic Citrullinated Pept IgG <15.6 U 8 Comp Metabolic Panel 01/03/2015 Sodium 136 mmol/L 133-145 Potassium 3.7 mmol/L 3.5-5.0 Chloride 103 mmol/L 101-111 Co2 Carbon Dioxide 29 mmol/L 22-32 Anion Gap 4 mmol/L 2-11 Glucose 122 mg/dL High 70-100 Blood Urea Nitrogen 19 mg/dL 6-24 Creatinine 0.48 mg/dL Low 0.51-0.95 BUN/Creatinine Ratio 39.6 High 8-20 Calcium 8.7 mg/dL 8.6-10.3 Total Protein 7.6 g/dL 6.4-8.9 Albumin 3.2 g/dL 3.2-5.2 Globulin 4.4 g/dL High 2-4 Albumin/Globulin Ratio 0.7 Low 1-3 Total Bilirubin 0.40 mg/dL 0.2-1.0 Alkaline Phosphatase 59 U/L 34-104 Alt 22 U/L 7-52 Ast 31 U/L 13-39 Egfr Non- 126.8 >60 Egfr 163.0 >60 9 CBC Auto Diff 01/03/2015 White Blood Count 3.6 10^3/uL Low 4.8-10.8 Red Blood Count 3.20 10^6/uL Low 4.0-5.4 Hemoglobin 11.1 g/dL Low 12.0-16.0 Hematocrit 33 % Low 35-47 Mean Corpuscular Volume 102 fL High 80-97 Mean Corpuscular Hemoglobin 35 pg High 27-31 Mean Corpuscular HGB Conc 34 g/dL 31-36 Red Cell Distribution Width 16 % High 10.5-15 Platelet Count 116 10^3/uL Low 150-450 Mean Platelet Volume 7 um3 Low 7.4-10.4 Abs Neutrophils 2.0 10^3/uL 1.5-7.7 Abs Lymphocytes 0.7 10^3/uL Low 1.0-4.8 Abs Monocytes 0.6 10^3/uL 0-0.8 Abs Eosinophils 0.2 10^3/uL 0-0.6 Abs Basophils 0 10^3/uL 0-0.2 Abs Nucleated RBC 0 10^3/uL Granulocyte % 56.8 % 38-83 Lymphocyte % 18.8 % Low 25-47 Monocyte % 17.3 % High 1-9 Eosinophil % 6.5 % High 0-6 Basophil % 0.6 % 0-2 Nucleated Red Blood Cells % 0 Immunoglobulins Serum Quant 09/13/2014 Immunoglobulin G 1620 mg/dL 767 - 1590 10 Immunoglobulin M 157 mg/dL 37 - 286 Immunoglobulin A 214 mg/dL 61 - 356 Lyme Western Blot 09/13/2014 Lyme Disease IgG Ab WB Negative Negative Lyme Disease IgG Bands Present p41, p39, kDa Lyme Disease IgM Ab WB Negative Negative Lyme Disease IgM Bands Present p41, kDa Lyme Disease Interpretation See Comment 11 Laboratory test finding 09/13/2014 Erythrocyte Sed Rate 44 mm/Hr High 0- 40 C Reactive Protein 5.22 mg/L High < 5.00 12 Cyclic Citrullinated Pept IgG <15.6 U 13 Shoshana Screen Negative Negative 14 Comp Metabolic Panel 09/13/2014 Sodium 136 mmol/L 133-145 Potassium 3.5 mmol/L 3.5-5.0 15 Chloride 100 mmol/L Low 101-111 Co2 Carbon Dioxide 30 mmol/L 22-32 Anion Gap 6 mmol/L 2-11 Glucose 77 mg/dL 70-100 Blood Urea Nitrogen 13 mg/dL 6-24 Creatinine 0.50 mg/dL Low 0.51-0.95 BUN/Creatinine Ratio 26.0 High 8-20 Calcium 8.7 mg/dL 8.6-10.3 Total Protein 6.7 g/dL 6.4-8.9 Albumin 3.6 g/dL 3.2-5.2 Globulin 3.1 g/dL 2-4 Albumin/Globulin Ratio 1.2 1-3 Total Bilirubin 0.60 mg/dL 0.2-1.0 Alkaline Phosphatase 50 U/L 34-104 Alt 11 U/L 7-52 Ast 22 U/L 13-39 Egfr Non- 121.3 >60 Egfr 156.0 >60 16 CBC Auto Diff 09/13/2014 White Blood Count 4.3 10^3/uL Low 4.8-10.8 Red Blood Count 3.28 10^6/uL Low 4.0-5.4 Hemoglobin 11.2 g/dL Low 12.0-16.0 Hematocrit 33 % Low 35-47 Mean Corpuscular Volume 100 fL High 80-97 Mean Corpuscular Hemoglobin 34 pg High 27-31 Mean Corpuscular HGB Conc 34 g/dL 31-36 Red Cell Distribution Width 16 % High 10.5-15 Platelet Count 209 10^3/uL 150-450 Mean Platelet Volume 7 um3 Low 7.4-10.4 Abs Neutrophils 1.9 10^3/uL 1.5-7.7 Abs Lymphocytes 1.0 10^3/uL 1.0-4.8 Abs Monocytes 0.6 10^3/uL 0-0.8 Abs Eosinophils 0.7 10^3/uL High 0-0.6 Abs Basophils 0 10^3/uL 0-0.2 Abs Nucleated RBC 0 10^3/uL Granulocyte % 44.0 % 38-83 Lymphocyte % 24.5 % Low 25-47 Monocyte % 14.9 % High 1-9 Eosinophil % 15.4 % High 0-6 Basophil % 1.2 % 0-2 Nucleated Red Blood Cells % 0.1 Laboratory test finding 03/03/2014 Mitochondria M2 Antibody <0.1 U 17 [place]ana Screen Negative Negative 18 Aldolase 6.4 U/L <7.7 19 LD Isoenzymes 03/03/2014 LD 1 19.5 % 17.5-28.3 LD 2 28.1 % 30.4-36.4 LD 3 26.0 % 19.2-24.8 LD 4 16.1 % 9.6-15.6 LD 5 10.3 % 5.5-12.7 20 Laboratory test finding 03/03/2014 C Reactive Protein 4.57 mg/L < 5.00 21 Erythrocyte Sed Rate 43 mm/Hr High 0-40 Creatine Kinase 42 U/L 10-223 1 FALL HIP PAIN 2 SEE RESULTS BELOW [id number] BP PC TRANSFUSED 01/20/17 2058 [id number] BP PC TRANSFUSED 01/23/17 1146 [id number] BP PC NOT AVAILABLE 3 Consistent with previous results on 05/20/16. 4 Because ethnic data is not always readily available, this report includes an eGFR for both -Americans and non- Americans. The National Kidney Disease Education Program (NKDEP) does not endorse the use of the MDRD equation for patients that are not between the ages of 18 and 70, are , have extremes of body size, muscle mass, or nutritional status, or are non- or non-. According to the National Kidney Foundation, irrespective of diagnosis, the stage of the disease is based on the level of kidney function: Stage Description GFR(mL/min/1.73 m(2)) 1 Kidney damage with normal or decreased GFR 90 2 Kidney damage with mild decrease in GFR 60-89 3 Moderate decrease in GFR 30-59 4 Severe decrease in GFR 15-29 5 Kidney failure <15 (or dialysis) 5 Consistent with previous results on 04/01/16. 6 Acute inflammation: >10.00 7 Test Performed by: [address] [address] Outside Plant Field Engineer: Tal Preston II, M.D., Ph.D. 8 REFERENCE VALUE <20.0 (Negative) Test Performed by: [place] [address] Outside Plant Field Engineer: Tal Preston II, M.D., Ph.D. 9 Because ethnic data is not always readily available, this report includes an eGFR for both -Americans and non- Americans. The National Kidney Disease Education Program (NKDEP) does not endorse the use of the MDRD equation for patients that are not between the ages of 18 and 70, are , have extremes of body size, muscle mass, or nutritional status, or are non- or non-. According to the National Kidney Foundation, irrespective of diagnosis, the stage of the disease is based on the level of kidney function: Stage Description GFR(mL/min/1.73 m(2)) 1 Kidney damage with normal or decreased GFR 90 2 Kidney damage with mild decrease in GFR 60-89 3 Moderate decrease in GFR 30-59 4 Severe decrease in GFR 15-29 5 Kidney failure <15 (or dialysis) 10 Test Performed by: [place] [address] Outside Plant Field Engineer: Derik Zhang M.D. 11 Specific serologic response to B. burgdorferi infection is not detected, but cannot rule out early infection during which low or undetectable antibody levels to B. burgdorferi may be present. If clinically indicated, a new serum specimen should be submitted in 7-14 days. ADDITIONAL INFORMATION CDC criteria require >=5 bands for IgG or >=2 bands for IgM for the Immunoblot to be considered positive. Bands (e.g.,p41) may be detected in patients without Lyme disease, and patterns not meeting the CDC criteria should be interpreted with caution. Immunoblot should be ordered only on specimens that are positive or equivocal by a FDA-licensed Lyme disease antibody screening test (e.g., EIA). Test Performed by: [place] [address] Outside Plant Field Engineer: Derik Zhang M.D. 12 Acute inflammation: >10.00 13 REFERENCE VALUE <20.0 (Negative) Test Performed by: [place] [address] Outside Plant Field Engineer: Derik Zhang M.D. 14 The above SHOSHANA screen is designed for the detection of antibodies to extractable nuclear antigen (SHOSHANA) in human serum. It is a combination test for the detection of antibodies to COUNTY AGENT, Sm, SS-A (Ro), and SS-B (La) nuclear antigens. 15 Potassium reference range changed effective 08/20/14 16 Because ethnic data is not always readily available, this report includes an eGFR for both -Americans and non- Americans. The National Kidney Disease Education Program (NKDEP) does not endorse the use of the MDRD equation for patients that are not between the ages of 18 and 70, are , have extremes of body size, muscle mass, or nutritional status, or are non- or non-. According to the National Kidney Foundation, irrespective of diagnosis, the stage of the disease is based on the level of kidney function: Stage Description GFR(mL/min/1.73 m(2)) 1 Kidney damage with normal or decreased GFR 90 2 Kidney damage with mild decrease in GFR 60-89 3 Moderate decrease in GFR 30-59 4 Severe decrease in GFR 15-29 5 Kidney failure <15 (or dialysis) 17 -- REFERENCE VALUE -- <0.1 (Negative) Test Performed by: [place] [address] Outside Plant Field Engineer: Colton Townsend III, M.D. 18 The above SHOSHANA screen is designed for the detection of antibodies to extractable nuclear antigen (SHOSHANA) in human serum. It is a combination test for the detection of antibodies to COUNTY AGENT, Sm, SS-A (Ro), and SS-B (La) nuclear antigens. 19 Test Performed by: [place] [address] Outside Plant Field Engineer: Colton Townsend III, M.D. 20 Test Performed by: [address] [address] Outside Plant Field Engineer: Colton Townsend III, M.D. 21 Acute inflammation: >10.00 Procedures Date CPT Code Description Status 07/09/2017 13708 Walking Cast Completed 06/29/2017 63121 Lengthening Or Shortening Tendon,Leg,Ankle Single Completed Tendon 06/29/2017 31355 Lengthening Or Shortening Tendon,Leg,Ankle Single Completed Tendon 04/03/2017 74582 EEG Recording Awake & Drowsy Completed 04/03/2017 12457 ECHO Transthorasic Realtime 2D W Doppler & Color Completed [facility] 03/25/2017 61170 Short Leg Cast Completed 03/12/2017 48282 Walking Cast Completed 01/22/2017 37369 EKG, Interpretation Only Completed 01/21/2017 27488 Open TX Of Femoral FX,Promimal End,Neck Internal Completed Fixation 01/21/2017 30704 Open TX Of Femoral FX,Promimal End,Neck Internal Completed Fixation 09/05/2016 64692 ECHO Transthorasic Realtime 2D W Doppler & Color Completed [facility] 07/26/2014 24434 EEG Recording Awake & Drowsy Completed 07/11/2014 64399 Holter Monitoring 24 HR New Completed 06/17/2014 80717 Treadmill Interp/Report Only Completed 06/17/2014 58914 Stress Test Supervsn W/Out I/R Completed 06/16/2014 88397 ECHO Transthorasic Realtime 2D W Doppler & Color Completed [facility] 06/16/2014 26652 EKG, Interpretation Only Completed 03/03/2014 82980 ECHO Transthorasic Realtime 2D W Doppler & Color Completed [facility] Encounters Type Date Location Provider CPT E/M Dx Office Visit 06/23/2017 [facility] Mark D[place], [address] I69.351 3:00p [facility] Tawanna Montejo I10 Z79.02 Office Visit 06/12/2017 10:45a [facility] 26289 G81.11 C.MAsuncion Montejo Office Visit 05/22/2017 2:00p [facility] [place] [address] G81.11 Mauricio M24.531 M24.541 Office Visit 05/06/2017 2:15p [facility], 46073 G81.11 Mauricio Montejo M67.01 Office Visit 04/07/2017 10:45a [facility], 38285 L89.610 Mauricio Montejo Office Visit 04/03/2017 3:44p [facility] Wu Gomez, 60140 G45.9 MD Office Visit 04/03/2017 11:15a [facility], Margaret Samson, 55144 G45.9 Hospitalists Nikia R42 G81.11 Office Visit 03/25/2017 10:30a [facility] ALIZA Roberson 46232 L89.610 Of Mauricio M67.01 Office Visit 03/13/2017 1:30p [facility] [place] [address] M24.531 Mauricio M24.541 I63.9 Office Visit 03/12/2017 10:30a [facility], 17327 L89.610 Mauricio Montejo M67.01 Office Visit 01/20/2017 1:11p [facility], [address] S72.001A [facility] N.PDamaso E78.5 I10 Z86.73 Office Visit 01/20/2017 2:48p [facility]zma Hathaway, 16500 S72.041A Mauricio Montejo W19.xxxA Office Visit 09/09/2016 8:07a [facility], Rodrigo Vasquez, 97848 I63.8 Hospitalists MKaren M35.4 R10.9 I10 Office Visit 09/08/2016 8:07a [facility], Rodrigo Vasquez, 85718 I63.8 Hospitalists M.DDamaso M35.4 R10.9 I10 Office Visit 09/07/2016 8:06a [facility] Rodrigo Vasquez, 42502 I63.8 Hospitalists MKaren M35.4 R10.9 I10 Office Visit 09/06/2016 3:49p [facility] [address] I63.9 I10 Office Visit 09/06/2016 8:06a [facility] Assoc,pc Rodrigo Vasquez, [address] I63.8 Hospitalists M.DDamaso M35.4 I10 Office Visit 09/05/2016 8:05a [facility] [place] [address] I63.8 Hospitalists I10 Office Visit 07/15/2016 10:30a [facility] Marc Reyes, 25695 R76.12 Infectious Diseases M.D. Z79.2 Z86.11 Office Visit 05/20/2016 11:10a [facility] Marc Reyes, 09924 R76.12 Infectious Diseases M.D. Z79.2 Office Visit 04/18/2016 8:50a [facility] Marc Reyes, 42362 R76.12 Infectious Diseases M.D. Z86.11 Office Visit 03/05/2015 10:40a [facility] Sandro Astudillo M.D. 50498 714.0 Of [facility] 719.49 786.50 782.1 Office Visit 12/29/2014 10:00a [facility] Sandro Astudillo 54781 719.49 Of [facility] M.D. 795.79 V58.69 288.50 714.0 Office Visit 10/04/2014 1:40p [facility] Sandro Astudillo 54624 719.49 Of [facility] M.D. 795.79 V58.69 288.50 285.8 714.0 Office Visit 09/13/2014 1:40p [facility] Sandro Astudillo 55485 719.49 Of [facility] M.D. 729.1 795.79 288.50 285.8 Office Visit 08/02/2014 11:30a [facility] Mark Denton 86853 437.7 Services Of [facility] M.D. 794.02 Office Visit 07/24/2014 3:00p [facility] Mark Denton 89515 437.7 Services Of [facility] M.D. 437.7 Office Visit 06/17/2014 11:40a [facility] Alonso Ybarra M.D. 09526 435.9 Services Of [facility] 790.99 Office Visit 06/17/2014 7:31a [facility], 56812 434.91 Assoc, Hospitalists Nikia 790.99 Office Visit [facility]/16[facility]2014 [facility] 11957 434.91 Assoc, Hospitalists Nikia 790.99 Office Visit 06/16/2014 11:37a [facility] Alonso Ybarra M.D. 05528 435.9 Services Of [facility] 790.99 Office Visit 06/15/2014 9:59a [facility] Assoc,pc Gurpreet Pina, 51506 434.91 Hospitalists Nikia 790.99 Office Visit 04/07/2014 2:00p [facility] Services Sandro Astudillo M.D. 58241 009.1 Of [facility] 729.1 786.05 Office Visit 03/02/2014 2:00p [facility] Sandro Astudillo M.D. 28784 009.1 Of [facility] 729.1 786.05 Plan of Care Future Appointment(s):12/15/2017 1:30 pm - Gurpreet Pires MD at [facility]11/13/2017 9:30 am - Gurpreet Pires MD at [facility]12/31/2017 9:30 am - Gurpreet Rojas M.D. at [facility]10/28/2017 - Gurpreet Pires MDI69.351 Hemiplga following cerebral infrc aff right dominant sideFollow up:Follow up: 7-10 days before arbdmvoD83.541 Contracture, right handM24.531 Contracture, right wrist
[2017-11-06] MEDS ORDERED: Ibuprofen TAB* 200 MG PO ONE (08:07)
--- NOTE | 2017-11-06 09:08 | RAD ---
Indication: RIGHT knee pain. Comparison: None. Technique: RIGHT knee: AP, tunnel, lateral, sunrise views. Report: Negative for significant osteophytosis. Mild medial joint space narrowing. Negative for joint effusion, fracture, or suspicious focal osseous lesion. Peripheral vascular calcifications. Unremarkable soft tissue contours. IMPRESSION: Mild medial joint space narrowing indicating thinning of the hyaline articular cartilage. No acute abnormality.
--- NOTE | 2017-11-06 09:11 | RAD ---
HISTORY: Right leg pain COMPARISONS: March 11, 2017 VIEWS: 3, Frontal view of the pelvis with frontal and frog-leg views of the right hip FINDINGS: BONE DENSITY: Normal. BONES: The patient is status post right hip arthroplasty. There is no hardware failure or osteolysis. JOINTS: The patient is status post right hip arthroplasty. ALIGNMENT: There is no dislocation. SOFT TISSUES: Unremarkable. OTHER FINDINGS: Degenerative changes are noted of the spine. IMPRESSION: STATUS POST RIGHT HIP ARTHROPLASTY
--- NOTE | 2017-11-06 09:23 | RAD ---
Indication: Right hip pain. 2 views of the right femur demonstrates right hip replacement in satisfactory position. No fracture is noted. IMPRESSION: Right hip replacement in satisfactory position. No fracture of the right femur is noted.
--- NOTE | 2017-11-06 12:15 | RAD ---
HISTORY: Right lower leg weakness, history of subarachnoid hemorrhage COMPARISONS: April 03, 2017 TECHNIQUE: Multiple contiguous axial CT scans were obtained of the head without intravenous contrast. FINDINGS: HEMORRHAGE/INFARCT: There is no hemorrhage or acute infarct. MASSES/SHIFT: There is no mass or shift. EXTRA-AXIAL SPACES: There are no extra-axial fluid collections. SULCI AND VENTRICLES: The sulci and ventricles are normal in size and position for the patient's stated age. 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 This is stable from the April 03, 2015 examination. There is dystrophic calcification along the margins of the right lateral ventricle. BRAINSTEM: There are no focal parenchymal abnormalities. CEREBELLUM: There are no focal parenchymal abnormalities. VESSELS: The vessels are grossly normal. PARANASAL SINUSES: The paranasal sinuses are clear. ORBITS: The orbits are unremarkable. BONES AND SOFT TISSUE: No bone or soft tissue abnormalities are noted. OTHER: None IMPRESSION: NO ACUTE INTRACRANIAL PATHOLOGY. MULTIFOCAL ENCEPHALOMALACIA CONSISTENT WITH REMOTE INFARCT
[2017-11-06 12:33] LABS: ABS Basophils 0 10^3/ul (0-0.2); ABS Eosinophils 0 10^3/ul (0-0.6); ABS Lymphocytes 1.1 10^3/ul (1.0-4.8); ABS Monocytes 0.6 10^3/ul (0-0.8); ABS Neutrophils 1.8 10^3/ul (1.5-7.7); ABS Nucleated RBC 0 10^3/ul; Eosinophil % 0.7 % (0-6); Hematocrit 32 % (35-47); Hemoglobin 11.6 g/dl (12.0-16.0); Lymphocyte % 30.3 % (25-47); Mean Corpuscular HGB Conc 36 g/dl (31-36); Mean Corpuscular Hemoglobin 37 pg (27-31); Mean Corpuscular Volume 102 fL (80-97); Mean Platelet Volume 6 um3 (7.4-10.4); Nucleated Red Blood Cells % 0; Platelet Count 120 10^3/ul (150-450); Red Blood Count 3.11 10^6/ul (4.0-5.4); Red Cell Distribution Width 16 % (10.5-15); White Blood Count 3.5 10^3/ul (3.5-10.8)
[2017-11-06 13:22] LABS: Urine Appearance Clear; Urine Blood Negative (Negative); Urine Color Yellow; Urine Ketones Negative (Negative); Urine Protein Negative (Negative); Urine Specific Gravity 1.014 (1.010-1.030); Urine Urobilinogen Negative (Negative)
[2017-11-06] MEDS ORDERED: Morphine INJ* 2 MG/ML 1 ML CARPUJECT IM ONE (13:33)
[2017-11-06] MEDS ORDERED: Cephalexin CAP* 500 MG PO ONE (13:34)
[2017-11-06] MEDS ORDERED: Cyclobenzaprine TAB* 10 MG PO ONE (13:38)
[2017-11-06 16:06] VITALS: BP 135/81
--- NOTE | 2017-11-06 16:15 | ED ---
Micheal Hernandez Julia, scribed for Carmela Larios MD on 11/06/17 at 0802 . Lower Extremity - HPI Summary HPI Summary: This patient is a 76 year old F presenting to [facility] accompanied by her daughter with a chief complaint of R knee and hip pain beginning today with unknown cause. The patient rates the pain 6/10 in severity. Her daughter reports she fell out of wheelchair about a week ago, but did not witness the event. Patient denies pain at a bruise to her left hip. Patient has a history of TIA in 2016 resulting in right sided weakness. Patient is mostly wheelchair bound, but is transitioning from walker to cane in physical therapy. Patient denies chest pain , abdominal pain, back pain, headache, blurry vision, ear ache, and sore throat. Pt is currently being treated for depression. - History of Current Complaint Chief Complaint: EDExtremityLower Stated Complaint: RIGHT LEG PAIN Time Seen by Provider: 11/06/17 07:43 Hx Obtained From: Patient Mechanism Of Injury: Unknown Onset/Duration: Hours Pain Intensity: 6 Pain Scale Used: 0-10 Numeric Timing: Constant Associated Signs And Symptoms: Positive: Bruising Aggravating Factor(s): Nothing Alleviating Factor(s): Nothing Able to Bear Weight: Yes - typically wheelchair bound post CVA - Allergies/Home Medications Allergies/Adverse Reactions: Allergies Allergy/AdvReac Type Severity Reaction Status Date / Time No Known Allergies Allergy Verified 06/29/17 06:58 PMH/Surg Hx/FS Hx/Imm Hx Endocrine/Hematology History: Reports: Hx Blood Transfusions - 2000, possibly Denies: Hx Diabetes Cardiovascular History: Reports: Hx Hypertension - on meds Denies: Hx Pacemaker/ICD, Other Cardiovascular Problems/Disorders Respiratory History: Reports: Hx Chronic Obstructive Pulmonary Disease (COPD) Denies: Hx Asthma GI History: Denies: Other GI Disorders History: Denies: Hx Renal Disease Musculoskeletal History: Reports: Hx Orthopedic Injury Sensory History: Reports: Hx Cataracts - left, Hx Contacts or Glasses - glasses , Hx Deafness - unknown which ear, Hx Hearing Aid - right, Hx Hearing Problem - R ear Denies: Hx Glaucoma, Other Sensory Impairments Opthamlomology History: Reports: Hx Cataracts - left, Hx Contacts or Glasses - glasses Denies: Hx Glaucoma, Other Sensory Impairments Neurological History: Reports: Hx Headaches, Hx Peripheral Neuropathy, Hx Transient Ischemic Attacks (TIA), Other Neuro Impairments/Disorders - Ruptured aneurysm 2000 Denies: Hx Dementia, Hx Developmental Delay, Hx Migraine, Hx Nerve Disease, Hx Seizures, Hx Spinal Cord Injury Psychiatric History: Reports: Hx Depression - on meds Denies: Hx Panic Disorder - Cancer History Cancer Type, Location and Year: Basal cell carcinoma several over the years Hx Chemotherapy: No Hx Radiation Therapy: No - Surgical History Surgery Procedure, Year, and Place: peg tube placed 2000 r/t stroke. CATARACT left 25 yrs ago. LEFT ELBOW FRACTURE, Hx Anesthesia Reactions: No Infectious Disease History: Yes Infectious Disease History: Reports: Hx Tuberculosis - as a child Denies: Hx of Known/Suspected MRSA, Hx Shingles, Hx Known/Suspected VRE, Hx Known/Suspected VRSA, History Other Infectious Disease, Traveled Outside the [place] in Last 30 Days - Family History Known Family History: Positive: Cardiac Disease - Social History Alcohol Use: Daily Alcohol Amount: 2-3/day Substance Use Type: Reports: None Smoking Status (MU): Former Smoker Type: Cigarettes Amount Used/How Often: 1/2 pack of cigaretts/day for 50 years Length of Time of Smoking/Using Tobacco: her whole life until she quit in 2000 - per patient Have You Smoked in the Last Year: No Review of Systems Negative: Blurred Vision Negative: Sore Throat, Ear Ache Negative: Chest Pain Negative: Abdominal Pain Negative: dysuria Musculoskeletal: Negative - back pain Negative: Rash Negative: Headache All Other Systems Reviewed And Are Negative: No Physical Exam - Summary Physical Exam Summary: Appearance: Alert, conversive, nontoxic appearing Skin: Warm, dry, no mottling, no rashes, no contusions HEENT: EOMI, PERRL, moist mucous membranes Neck: No masses on the neck, supple Respiratory: Clear to auscultation, breath sounds present, no rales, no rhonchi , no wheezes Cardiovascular: RRR, pulses are symmetrical in both lower and upper extremities Abdomen: Soft, non-tender Bowel Sounds: Present Musculoskeletal: No CVA tenderness, moving all extremities in a grossly normal manner, but has limited mobility of L foot and contracted R wrist and hand, ecchymosis to L hip Neurological: A&Ox3, CN II-XII Intact, moving all extremities symmetrically Psychiatric: Normal affect and mood Triage Information Reviewed: Yes Vital Signs On Initial Exam: Initial Vitals Temp Pulse Resp BP Pulse Ox 98.5 F 104 18 174/97 98 11/06/17 07:35 11/06/17 07:35 11/06/17 07:35 11/06/17 07:35 11/06/17 07:35 Vital Signs Reviewed: Yes Diagnostics - Vital Signs Vital Signs Temp Pulse Resp BP Pulse Ox 11/06/17 07:35 98.5 F 104 18 174/97 98 - Laboratory Result Diagrams: 11/06/17 12:26 11/06/17 12:26 Lab Statement: Any lab studies that have been ordered have been reviewed, and results considered in the medical decision making process. - Radiology R Knee XR Radiology Interpretation Completed By: Radiologist - Mild medial joint space narrowing indicating thinning of the hyaline articular cartilage. No acute abnormality. ED Physician has reviewed this report. R Femur Radiology Interpretation Completed By: Radiologist - Right hip replacement in satisfactory position. No fracture of the right femur is noted. ED Physician has reviewed this report R Hip and Pelvis Radiology Interpretation Completed By: Radiologist - STATUS POST RIGHT HIP ARTHROPLASTY. ED Physician has reviewed this report. - CT Brain CT Interpretation Completed By: Radiologist - NO ACUTE INTRACRANIAL PATHOLOGY. MULTIFOCAL ENCEPHALOMALACIA CONSISTENT WITH REMOTE INFARCT ED Physician has reviewed this report. Re-Evaluation - Re-Evaluation 1st Re-Evaluation Time: 11:00 Comment: Informed pt results of x-rays, revealing no fracture but arthritis. Patient reports difficulty with flexion and extension without pain, but is otherwise mobile. Pt denies weakness in R leg. Pt will be given vicadin. Will order Brain CT, as pt and daughter is concerned for potential TIA. 2 Re-Evaluation Time: 15:30 Change: Improved - Pt walked with walker and is able to bear weight. Pt feels that she has more strength. Pt will stay with family after discharge Comment: Patient is able to bear weight and ambulate with cane. Patient is feeling better and will go home with family. Lower Extremity Course/Dx - Course Course Of Treatment: Patient presented with R knee and leg pain with a history of TIA. Patient had recent fall from wheel chair about a week ago. Imaging reports reveal no fractures, but some arthritis. I discussed pts brain CT results for clarification with Dr. Arevalo, radiology, who states the image reveals no acute pathology. Patient was able to bear weight and ambulate with a cane and had improved symptoms at 15:30. UA revealed an UTI. Patient beck be discharged under care of family for increased supervision. - Diagnoses Provider Diagnoses: Leg pain, right, UTI (urinary tract infection) Discharge - Discharge Plan Condition: Stable Disposition: HOME Prescriptions: Cephalexin CAP* [Keflex CAP*] 500 mg PO TID #21 cap Cyclobenzaprine TAB* [Flexeril 10 MG TAB*] 10 mg PO BID PRN #30 tab PRN Reason: muscle spasms Patient Education Materials: Urinary Tract Infection in Women (DC), Leg Pain ( ED) Referrals: Bina Bauer MD [Primary Care Provider] - Additional Instructions: Take tylenol for pain. I have also sent you a prescription of flexeril which is a muscle relaxant. Please be careful while taking these medications. return if worse or any new symptoms. Please take the keflex which is an antibiotic for your bladder infection. The documentation as recorded by the Micheal britt Julia accurately reflects the service I personally performed and the decisions made by , Carmela Larios MD.
== END 2017-11-06 16:06 | disposition home or self-care (01) ==
LOC: ED 07:34
DX: M79.604 Pain in right leg (principal); N39.0 Urinary tract infection, site not specified; Z87.891 Personal history of nicotine dependence; Z96.651 Presence of right artificial knee joint
CPT/HCPCS: 36415; 70450; 80053; 81003; 81015; 85025; 87086; 96372; 99282; A9270-GY; J2270

== ENCOUNTER → 2018-01-11 08:30 | Day surgery (SDC) | payer MEDICARE ==
[~2018-01-11 08:30] MED LIST changes: +Buffered Lidocaine 0.9% SYRIN* 5 ML/SYR SYRINGE ONE; +Bupivacaine 0.25% SDV* 30 ML ONE; +DiMENhydriNATE IV* 50 MG/ML VIAL IV PUSH PRN; +DiMENhydriNATE IV* 50 MG/ML VIAL ONE; +Ibuprofen TAB* 600 MG ONE; +Labetalol IV* 5 MG/ML 20 ML VIAL ONE; +Lidocaine 2% PF * 5 ML VIAL ONE; +Naloxone* 0.4 MG/ML 1 ML VIAL IV PRN; +Propofol* 10 MG/ML 20 ML BTL IV PUSH ONE; +Sodium Citrate/Citric Acid* 15 ML UDC ONE; +Sodium Citrate/Citric Acid* 15 ML UDC PO ONE; +ceFAZolin 2 GM PREMIX (*) 2 GM/50 ML BAG IVPB ONE; +fentaNYL* 50 MCG/ML 2 ML VIAL (100 MCG VIAL) ONE
[2018-01-11] MEDS: fentaNYL* 50 MCG/ML 2 ML VIAL (100 MCG VIAL) IV PRN ×2 (14:23→14:35)
[2018-01-11 15:48] VITALS: BP 129/83
--- NOTE | 2018-01-15 14:19 | OP ---
DATE OF OPERATION: 01/11/18 - SDS DATE OF : 42 SURGEON: Gurpreet Pires MD. HYBRID TECHNOLOGIST: JESSICA Abdi. An certified nursing assistant instructor was needed for the entirety of the procedure to aid in position of the arm and retraction. ANESTHESIOLOGIST: Dr. Navarro. ANESTHESIA: General. 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 OPERATIVE PROCEDURES: 1. Right flexor digitorum superficialis to flexor digitorum profundus transfer for finger tendon lengthening. 2. Right flexor carpi radialis tendon Z lengthening. 3. Right flexor pollicis longus tendon Z lengthening. 4. Right flexor carpi ulnaris to extensor digitorum communis tendon transfer. INDICATIONS: Rachele had a stroke about a year and a half ago. We have been following her along. She got Botox once and she quite enjoyed how the hand opened up. She has pretty severe spasticity with the wrist flexion and finger flexion deformity. I was not able to get a Volkmann's angle on her, as even at full wrist flexion, I was unable to fully extend the fingers. I told her the fractional lengthenings would almost certainly prove inadequate given the amount of contracture and spasticity that she has. I did recommend that we augment the lengthenings with an FCU to EDC transfer. She has sensation in the hand, but she has absolutely no active flexion or extension of the fingers and would simply need to get the hand open to aid her in positioning of the hand hygiene and able to better use it as a helper hand. I had had multiple conversations with her and her daughter. They understood that were not giving her a functional hand or simply putting in in a much nicer position and relieving the severe contractures enabling her to better perform the necessary daily activities with greater ease. ESTIMATED BLOOD LOSS: 5 mL. COMPLICATIONS: None. FINDINGS: As expected. DESCRIPTION OF PROCEDURE: Rachele was seen in the preoperative holding area. The correct side, site, and procedures were identified. We came back to the operating room and the arm was prepped and draped in the usual fashion. A time- out was performed. The arm was exsanguinated with the Esmarch and the tourniquet inflated to 250 mmHg. I began by making a longitudinal incision down the mid aspect of the forearm. This was brought back in Shana type fashion ulnarly across the wrist flexion crease and extended down into the carpal tunnel. Dissection was carried down to the antebrachial and the palmar fascia. The fascia was incised to expose the underlying flexor tendons. The transverse carpal ligament was to release to expose the flexor tendons in the carpal tunnel. The median nerve was dissected free and protected throughout the case. I began by releasing the flexor carpi radialis in Z type fashion. Once that was released, I continued my dissection down deep and this took me down to the FPL tendon. She sits at 90 degrees of flexion at the IP joint of the thumb. I estimated that she would roughly require 4.5 cm of lengthening. I thought that we could probably get away with about 3.5 to 4 cm of lengthening. I went ahead and cut the tendon in Z type fashion. The thumb IP joint was brought out to full extension. I performed a Pulvertaft weave to connect the two ends of the tendon again. The thumb was sat at about 10-20 degrees of flexion at the IP joint and the tendon transfer was secured with multiple 4-0 Ethibond sutures. I then took my FDS tendons and I sewed them together with the fingers in a normal finger cascade with the 3-0 Ethibond suture. The FDS tendons were then cut distally. The FDP tendons were then sewed together proximally and they were released proximally. I then brought the fingers down to extension. I brought the wrist into neutral flexion and the MCP joints into about 60 degrees of flexion. I then went ahead and sewed the FDS to the FDP tendons in side-to- side fashion. I did set the tension so that with full wrist extension the fingertips almost came down and touched the palm and with wrist flexion the fingers opened nicely. Once I had completed the FDS to FDP tendon transfer, I went ahead and performed my FCU to EDC tendon transfer. The FCU tendon was released just at its insertion, this began to attach the pisiform. It was mobilized well up into the proximal forearm. Once I had as much length as possible, I went ahead and created a subcutaneous tissue right super-ficial to the fascia. I came dorsally and made a 5 cm incision longitudinally over the EDC tendons. The FCU tendon was delivered into the dorsal wound. It was then woven into the EDC tendons in Pulvertaft weave fashion. It was secured with multiple 3-0 Ethibond sutures. Once that tendon transfer was complete, I came back and I completed my Z lengthening with the FCR tendon. I set the wrist in neutral flexion and performed a Pulvertaft weave to reconnect the FCR tendon and Z lengthened it. Once I had all this completed, the hand was sitting nicely open with the wrist in slight neutral to slight extension, the fingers in a very nice cascade and then just gentle flexion at the MCP and IP joints. The thumb sat at about 10 degrees of flexion at the IP joint. Overall, things were looking very good. I went ahead and irrigated out all the wounds. The subcutaneous tissue was reapproximated with 3-0 Vicryl suture. The skin was closed with 4-0 nylon suture. The wounds were infiltrated with 0.25% plain Marcaine and the wounds were dressed with Xeroform, 4x4, sterile Webril and a splint was applied holding the wrist in slight extension, the fingers fully extended, the thumb fully extended. The hand pinked up immediately after tourniquet deflation. She was woken up and taken to the recovery room in stable condition. [id number]/[facility] #: [id number] MTDD
== END | disposition home or self-care (01) ==
LOC: OR 08:30
PROVIDERS: ATTEND Orthopaedic Surgery Hand Surgery
DX: M24.541 Contracture, right hand (principal); M24.531 Contracture, right wrist; I69.398 Other sequelae of cerebral infarction; G81.11 Spastic hemiplegia affecting right dominant side; Z87.891 Personal history of nicotine dependence; I10 Essential (primary) hypertension; M79.671 Pain in right foot; M79.1 Myalgia; I08.1 Rheumatic disorders of both mitral and tricuspid valves; I27.20 Pulmonary hypertension, unspecified; Z79.01 Long term (current) use of anticoagulants; M06.9 Rheumatoid arthritis, unspecified
CPT/HCPCS: A9270-GY; J0690; J1240; J2704; J3010

== ENCOUNTER 2018-04-01 09:54 | Day surgery (SDC) | payer MEDICARE ==
[~2018-04-01 09:54] MED LIST changes: -Buffered Lidocaine 0.9% SYRIN* 5 ML/SYR SYRINGE ONE; -Bupivacaine 0.25% SDV* 30 ML ONE; -DiMENhydriNATE IV* 50 MG/ML VIAL IV PUSH PRN; -DiMENhydriNATE IV* 50 MG/ML VIAL ONE; -Ibuprofen TAB* 600 MG ONE; -Labetalol IV* 5 MG/ML 20 ML VIAL ONE; -Lidocaine 2% PF * 5 ML VIAL ONE; -Naloxone* 0.4 MG/ML 1 ML VIAL IV PRN; -Propofol* 10 MG/ML 20 ML BTL IV PUSH ONE; -Sodium Citrate/Citric Acid* 15 ML UDC ONE; -Sodium Citrate/Citric Acid* 15 ML UDC PO ONE; -ceFAZolin 2 GM PREMIX (*) 2 GM/50 ML BAG IVPB ONE; -fentaNYL* 50 MCG/ML 2 ML VIAL (100 MCG VIAL) ONE
[2018-04-01] MEDS ORDERED: ceFAZolin 2 GM PREMIX (*) 2 GM/50 ML BAG IVPB ONE (10:03)
[2018-04-01] MEDS ORDERED: Bupivacaine 0.25% SDV* 30 ML ONE (10:14)
[2018-04-01] MEDS ORDERED: Methylene Blue 0.5 %* 50 MG/10 ML AMP IV ONE (10:15)
[2018-04-01] MEDS ORDERED: BSS OPTH.SOL* BTL ONE (10:15)
[2018-04-01] MEDS ORDERED: Lidocain 1% EPI 1:100,000 * 30 ML MDV ONE (10:15)
[2018-04-01] MEDS ORDERED: Mineral Oil Sterile, TOPICAL* 25 ML BTL ONE (12:56)
[2018-04-01] MEDS ORDERED: fentaNYL* 50 MCG/ML 2 ML VIAL (100 MCG VIAL) ONE (13:01)
[2018-04-01] MEDS ORDERED: Midazolam* 1 MG/ML 5 ML VIAL (5 MG) ONE ×2 (13:02→14:53)
[2018-04-01] MEDS ORDERED: Propofol* 10 MG/ML 20 ML BTL IV PUSH ONE (15:58)
[2018-04-01] MEDS ORDERED: Acetaminophen TAB* 325 MG PO PRN (16:27)
[2018-04-01] MEDS ORDERED: Naloxone* 0.4 MG/ML 1 ML VIAL IV PRN (16:27)
[2018-04-01] MEDS ORDERED: oxyCODONE TAB* 5 MG TAB PO PRN (16:27)
[2018-04-01] MEDS ORDERED: Petrolatum 5 GM* 5 GM PACKET ONE (16:43)
[2018-04-01 17:02] VITALS: BP 148/88
== END 2018-04-01 17:05 | disposition home or self-care (01) ==
LOC: OREAST 09:54
PROVIDERS: ATTEND Plastic Surgery
DX: C44.311 Basal cell carcinoma of skin of nose (principal); C44.01 Basal cell carcinoma of skin of lip; C44.319 Basal cell carcinoma of skin of other parts of face; I10 Essential (primary) hypertension; Z87.891 Personal history of nicotine dependence; K21.9 Gastro-esophageal reflux disease without esophagitis; I69.359 Hemiplegia and hemiparesis following cerebral infarction affecting unspecified side; Z79.01 Long term (current) use of anticoagulants
CPT/HCPCS: A9270-GY; J0690; J2250; J2704; J3010

== ENCOUNTER 2019-12-26 17:06 | Observation (INO) | payer MEDICARE ==
--- OUTSIDE RECORDS SUMMARY | 2019-12-26 17:23 | XMS REPORT | Continuity of Care Document ---
:1940 External Reference #:[id number] Author Name Tierra Blancas O.D. Address [address] [place] [address] Care Team Providers Name Role Phone Bina Bauer M.D. - Internal Care Team Information Tennis Ball Coverer Hand Medicine Basia Lisa M.D. - Care Team Information Tennis Ball Coverer Hand [phone] Dermatology Problems Active Problems Provider Date Depressive disorder Onset: Fasciitis Onset: Gastroesophageal reflux disease Onset: Nuclear senile cataract Tierra Blancas O.D. Onset: 04/17/2015 Pseudophakia Tierra Blancas O.D. Onset: 04/17/2015 Astigmatism Tierra Blancas O.D. Onset: 04/17/2015 Presbyopia Tierra Blancas O.D. Onset: 04/17/2015 Taking medication Tierra Blancas O.D. Onset: 10/05/2015 Regular astigmatism Tierra Blancas O.D. Onset: 10/05/2015 Chronic allergic conjunctivitis Tierra Blancas O.D. 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 Onset: 04/17/2016 Hypermetropia Tierra Blancas O.D. 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 Social History Type Date Description Comments Sex Unknown ETOH Use Denies alcohol use Tobacco Use Start: Unknown Patient has never smoked Recreational Drug Use Denies Drug Use Smoking Status Reviewed: 12/16/19 Patient has never smoked Allergies, Adverse Reactions, Alerts Active Allergies Reaction Severity Comments Date Bee Stings 12/16/2019 Medications Active Medications SIG Qnty Indications Ordering Date Provider Folic Acid Unknown 1mg Tablets 0 Paroxetine HCL Unknown 30mg Tablets 0 Multi Vitamin Daily Unknown Tablets 0 Calcium 1000 + D Unknown 0 [id number] Tablets Vitamin B12 Unknown 100mcg Tablets 0 Hydroxychloroquine Unknown Sulfate 0 200mg Tablets Triamterene/Hydrochlorot Unknown hiazide 0 37.5-25mg Capsules Epinephrine Unknown 0.3mg/0.3ML 0 Solution Auto-Inject Co Q10 Unknown 60mg Capsules 0 Methylphenidate HCL Blegen, 5mg Bina M.D. 0 Tablets Pantoprazole Sodium Take One Tablet By Unknown 20mg Mouth Every Day On [address] Empty Stomach For Gastroesophageal Reflux Disease Clopidogrel Bisulfate Blegen, 75mg Bina M.D. 0 Tablets Atorvastatin Calcium Take One Tablet By Unknown 80mg Mouth AT Bedtime For 0 Tablets Cholesterol Enalapril Maleate Take One Tablet By Unknown 10mg Mouth Twice A Day For 0 Tablets Blood Pressure Tolterodine Tartrate ER Take One Capsule By Unknown 4mg Mouth Every Day For 0 Caps ER 24HR Urine Tizanidine HCL Take 1 To 2 Tablets By Unknown 2mg Tablets Mouth Two Times A Day 0 as Needed For Muscle Spasm Pain Donot Take With Other Muscle Relaxers Immunizations Description No Information Available Vital Signs Description No Information Available Results Description No Information Available Procedures Date Code Description Status 12/07/2019 56283 Patient No Show For Appt Completed Medical Devices Description No Information Available Encounters Description No Information Available Assessments Date Code Description Provider 12/16/2019 Z79.899 Other termination clerk (current) drug therapy Tierra Blancas O.D. 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 12/16/2019 H25.11 Age-related nuclear cataract, right eye Tierra Blancas O.D. 12/16/2019 H35.3131 Nonexudative age-related macular Tierra Blancas O.D. degeneration, bilateral, early dry stage Plan of Treatment 12/16/2019 - Tierra Blancas O.D.Z79.899 Other termination clerk (current) drug therapyComments:Smoking can increase the risk of developing or worsening any eye related disease, as well as affect your overall health. If you are a smoker , we strongly recommend that you quit.If you are not a smoker, we strongly recommend that you do not start. Some of the medications you are on have the potential to cause damage to your retinas. Depending on the length of time that you have been taking the medication, Dr. Blancas may monitor you annually or bi-annually. Dr. Blancas may also order a Visual Field test or an Optical Coherence Tomography test to monitor your retinas.Follow up:next available VF 10 -2M35.4 Diffuse (eosinophilic) fasciitisComments:Smoking can increase the risk of developing or worsening any eye related disease, as well as affect your overall health. If you are a smoker, we strongly recommend that you quit.If you are not a smoker, we strongly recommend that you do not start.H25.11 Age- related nuclear cataract, right eyeComments:You have nuclear sclerosis, which is hardening of your natural lens. This is normal as a person ages.H35.3131 Nonexudative age-related macular degeneration, bilateral, early dry stageComments:You have Macular Degeneration. Please take the AREDs 2 vitamin and check the amsler grid with each eye individually at least twice a week to closely monitor for vision change. If you notice a change invision, please call the office. Functional Status Description No Information Available Mental Status Description No Information Available Referrals Description No Information Available
--- OUTSIDE RECORDS SUMMARY | 2019-12-26 17:23 | XMS REPORT | Continuity of Care Document ---
:1940 External Reference #:[id number] Author Name Bina Bauer M.D. Address [address] [place] [address] Care Team Providers Name Role Phone Landry Olmstead MD - Care Team Information Supervisor Machine Workers [phone] Gastroenterology Domenic Gregg MD - Dermatology Care Team Information Supervisor Machine Workers Sary Eddy MD - Dermatology Care Team Information Supervisor Machine Workers Tal Mcclendon MD Care Team Information Supervisor Machine Workers Unavailable Good Everett MD - Hematology & Care Team Information Supervisor Machine Workers Oncology Paulina Hutson MD - Hematology & Care Team Information Supervisor Machine Workers Oncology Sandro Astudillo MD - Rheumatology Care Team Information Supervisor Machine Workers [phone] Humberto - Physical Therapist Care Team Information Supervisor Machine Workers [phone] Marc Reyes - Infectious Care Team Information Supervisor Machine Workers Disease Gurpreet Rojas - Orthopaedic Surgery Care Team Information Supervisor Machine Workers [phone] Luzma Hathaway - Orthopaedic Surgery Care Team Information Supervisor Machine Workers [phone] Wu Ortiz MD - Plastic Care Team Information Supervisor Machine Workers [phone] Surgery [facility], Dermatology Care Team Information Supervisor Machine Workers Problems Active Problems Provider Date Vitamin D deficiency Bina Bauer M.D. Onset: 04/09/2011 Vitamin B-complex deficiency Bina Bauer M.D. Onset: 04/09/2011 Social History Type Date Description Comments Sex Unknown Tobacco Use Start: Unknown End: former cigarette smoker quit 2000- h/o 10/22 Unknown ppd for 40 years ETOH Use Currently consumes 2 at most, not always glasses of wine daily daily Recreational Drug Use Denies Drug Use Tobacco Use Start: Unknown End: Patient is a former Unknown smoker Exercise Type/Frequency exercises regularly Sun Exposure moderate amount of sun exposure Sun Exposure Uses sunscreen Seat Belt/Car Seat always uses seat belt Allergies, Adverse Reactions, Alerts Active Allergies Reaction Severity Comments Date Bee Sting 06/12/2011 Tramadol Severe Severe depression, suicidal thoughts 01/25/2018 Oxycodone Severe severe depression, suicidal 01/25/2018 Dilaudid Moderate made feel terrible, mood changes 01/25/2018 Inactive Allergies NKDA 07/06/2003 Medications Active Medications SIG Qnty Indications Ordering Date Provider Pantoprazole Sodium take 1 tablet daily on 90tabs Bina P. an empty stomach as Lizette MDamasoDDamaso [address] maldonado for gastroesophageal reflux disease- Wait To Fill Until Patient Calls Clopidogrel Bisulfate take one tablet by 90tabs Bina P. mouth every day for Lizette MDamasoDDamaso 9 75mg Tablets stroke prevention Magnesium 2 by mouth every day Bina P. 250mg Tablets For Low Magnesium Lizette M.D. 9 Allevyn Heel every 3 days to 1 week 10units L89.612 Jimi Pads MD Renee 9 Silvadene 1 gram apply to 20gm L89.612 Jimi 1% Cream affected area with MD Renee 9 dressing changes Enalapril Maleate Take One Tablet By 60tabs I10 Bina P. 10mg Mouth Twice A Day For Lizette M.D. 8 Tablets Blood Pressure Right Hand Splint use as directed Katheryn Gayathri Tariq AVIONICS TECHNICIAN-C Tolterodine Tartrate Take One Capsule By 90caps Bina P. ER Mouth Every Day For Blegen M.D. 7 4mg Caps ER 24HR Urine Paroxetine HCL Take One Tablet By 90tabs Bina P. 40mg Mouth Every Day Nikia Bauer 7 Tablets Multiple Vitamins (Multivitamin with Bina Patel iron) Nikia Bauer 2 Tablets Vitamin D-3 2000 Iu per day Bina Patel 1000Unit Nikia Bauer 1 Tablets Calcium 500 +D once per day Bina Patel Nikia Bauer 1 [id number] Tablets Epinephrine use as directed for 1units Bina Patel 0.3mg/0.3ML bee sting allergy and Nikia Bauer 1 Solution Auto-Inject call 911 Vitamin B12 1 po every other day Bina Patel 1000mcg for vitamin b12 Nikia Bauer 1 Tablets ER deficiency Methylphenidate HCL take 1 tablet by mouth 45tabs Bina Patel 5mg in am, 1/2 tablet by Nikia Bauer 0 Tablets mouth in evening for memory and depression Atorvastatin Calcium Take One Tablet By 30tabs Bina Patel Mouth AT Bedtime For Nikia Bauer 0 80mg Tablets Cholesterol Medications Administered in Office Medication SIG Qnty Indications Ordering Provider Date Vitamin B-12 Injection-To Bina Bauer M.D. 06/12/2011 1000mcg Injection Vitamin B-12 Injection-To Bina Bauer M.D. 10/02/2009 1000mcg Injection Vitamin B-12 Injection-To [facility] 09/07/2009 1000mcg Injection Vitamin B-12 Injection-To [facility] 08/07/2009 1000mcg Injection Vitamin B-12 Injection-To [facility] 07/05/2009 1000mcg Injection Vitamin B-12 Injection-To [facility] 06/04/2009 1000mcg Injection Vitamin B-12 Injection-To Bina Bauer M.D. 06/04/2009 1000mcg Injection Vitamin B-12 Injection-To [facility] 05/04/2009 1000mcg Injection Vitamin B-12 Injection-To Bina Bauer M.D. 04/03/2009 1000mcg Injection Vitamin B-12 Injection-To [facility] 03/05/2009 1000mcg Injection Vitamin B-12 Injection-To Bina Bauer M.D. 02/02/2009 1000mcg Injection Vitamin B-12 Injection-To Bina Bauer M.D. 01/02/2009 1000mcg Injection Vitamin B-12 Injection-To Bina Bauer M.D. 11/13/2008 1000mcg Injection Vitamin B-12 Injection-To Bina Bauer M.D. 11/06/2008 1000mcg Injection Vitamin B-12 Injection-To Bina Bauer M.D. 10/30/2008 1000mcg Injection Vitamin B-12 Injection-To Bina Bauer M.D. 10/23/2008 1000mcg Injection Immunizations CPT Code Status Date Vaccine Lot # [id number] Given 09/05/2019 [place] [id number] Given 01/04/2019 Prevnar-13 Pneumococcal Conjugate Vaccine [id number] Given 08/10/2018 Influenza Vaccine High Dose PF [id number] 33484 Given 06/25/2017 Influenza Vaccine High Dose PF [id number] 24479 Given 03/31/2016 Tdap (Adacel) [id number] 56890 Given 08/06/2006 Td Age 7 to adult Decavac, Tenivac, [employer] [id number] 17120 Given 07/08/1993 DT (Adult) Vital Signs Date Vital Result Comment 12/12/2019 11:48am BP Systolic 136 mmHg BP Diastolic 72 mmHg Heart Rate 86 /min Body Temperature 99.1 F Respiratory Rate 16 /min O2 % BldC Oximetry 97 % 10/31/2019 11:08am Weight 112.38 lb Weight 50.973 kg BP Systolic 122 mmHg BP Diastolic 82 mmHg Heart Rate 76 /min Body Temperature 98.3 F Respiratory Rate 20 /min O2 % BldC Oximetry 98 % Results Description No Information Available Procedures Date Code Description Status 10/19/2012 [id number] Colonoscopy Completed Medical Devices Description No Information Available Encounters Type Date Location Provider Dx Diagnosis Office Visit 10/31/2019 Main Office Bina Heard89.611 Pressure ulcer of 11:00a Nikia Bauer right heel, stage 1 K21.9 Gastro-esophageal reflux disease without esophagitis R26.89 Other abnormalities of gait and mobility F33.1 Major depressive disorder, recurrent, moderate I10 Essential (primary) hypertension 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 Office Visit 10/21/2019 1:00p Main Office Bina Patel L89.611 Pressure ulcer of Nikia Bauer right heel, stage 1 Office Visit 10/15/2019 10:00a Main Office Lin Cuellar, L89.611 Pressure ulcer of [employer] right heel, stage 1 Office Visit 08/02/2019 1:00p Main Office Bina Patel R26.89 Other abnormalities Nikia Bauer of gait and mobility K21.9 Gastro-esophageal reflux disease without esophagitis F33.1 Major depressive disorder, recurrent, moderate I10 Essential (primary) hypertension 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 moderate 12/12/2019 K21.9 Gastro-esophageal reflux disease without Bina Bauer M.D. esophagitis 10/31/2019 L89.611 Pressure ulcer of right heel, stage 2 Bina Bauer M.D. 10/31/2019 K21.9 Gastro-esophageal reflux disease without Bina Bauer M.D. esophagitis 10/31/2019 R26.89 Other abnormalities of gait and mobility Bina Bauer M.D. 10/31/2019 F33.1 Major depressive disorder, recurrent, Bina Bauer M.D. moderate 10/31/2019 I10 Essential (primary) hypertension Bina Bauer M.D. 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 10/21/2019 L89.611 Pressure ulcer of right heel, stage 2 Bina Bauer M.D. 10/15/2019 L89.611 Pressure ulcer of right heel, stage 2 Lin Cuellar, [employer] 08/02/2019 R26.89 Other abnormalities of gait and mobility Bina Bauer M.D. 08/02/2019 K21.9 Gastro-esophageal reflux disease without Bina Bauer M.D. esophagitis 08/02/2019 F33.1 Major depressive disorder, recurrent, Bina Bauer M.D. moderate 08/02/2019 I10 Essential (primary) hypertension Bina Bauer M.D. 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 08/02/2019 H61.22 Impacted cerumen, left ear Bina Bauer M.D. Plan of Treatment Future Appointment(s):12/30/2019 11:45 am - Bina Bauer M.D. at Main Lcotll8901/30/2020 10:15 am - Bina Bauer M.D. at Main Pbtenj0512/12/2019 - Bina Bauer M.D.F33.1 Major depressive disorder, recurrent, moderateComments:RECENT WORSENING OF DEPRESSION AND SUICIDAL THOUGHTS, PT FEELS SAFE AND PROMISES HER SAFETY. AGAIN DISCUSSED IMPORTANCE OF CALLING SOMEONE RIGHT AWAY/ CRISIS LINE IF NEEDED IF SI. PT DOES NOT WANT TO SEE COUNSELOR OR SEE PSYCHIATRIST OR CHANGE HER PAROXETINE. FOR YEARS, HAS FELT PANTOPRAZOLE HAS HELPED HER DEPRESSION, NOT SURE WHY. WE TRIED DECREASE DOSE IN APRIL FROM 40 MG TO 20 MG - SINCE FELT 40 MGWORKED BETTER FOR HER, INCLUDING BREAKTHROUGH HEARTBURN AT TIMES ON THE 20 MG DOSE, WILL INCREASE PANTOPRAZOLE BACK TO 40 MG PER DAY. CONTINUE PAROXETINE 40 MG PER DAY. SHE ALSO FEELS THE METHYLPHENIDATE HAS HELPED HER MOOD, HAS BEEN ON THAT SINCE HER CVA, STARTED IN REHAB AFTER CVA BY DR. GATICA FOR MEMORY AND MOOD. DISCUSSED METHYLPHENIDATE CAN HELP ADJUNCT FOR DEPRESSION. OK TO TRY SMALL INCREASE IN METHYLPHENIDATE FROM 5 MG 1/ 2 TABLET TWICE PER DAY TO 5 MG 1 TABLET IN AM, 1/2 TABLET PM. WILL WATCH BP, NOTIFY IF FEELING JITTER OR PROBLEMS WITH INCREASE. NOTIFY IF CONCERNS OR WORSENING. OTHERWISE F/U 2-3 WEEKS.Follow up:-- f/u 2-3 weeks- 30 min - rosenda depression/ medsRecommendations:-- CONTINUE PAROXETINE 40 MG PER DAY -- INCREASE THE METHYLPHENIDATE TO 5 MG 1 TABLET ONCE PER DAY IN THE MORNING AND 1/ 2 TABLET AT NIGHT -- I THINK IT IS GREAT TO START VOLUNTEERING AT THE [employer] ONCE TO TWICE PER WEEK - YOU CAN HELP A LOT OF PEOPLE -- YOU CAN CALL THE CRISIS LINE IF EVER FEELING OVERWHELMED- - E04.9 Gastro- esophageal reflux disease without esophagitisComments:WILL INCREASE PANTOPRAZOLE BACK TO 40 MG PER DAY, NOTIFY IF BREAKTHROUGH SX.Follow up: .Recommendations:-- INCREASE THE PANTOPRAZOLE BACK TO 40 MG PER DAY Functional Status Functional Condition Comment Date Status Glasses Active Hearing Aid, left ear Active Mental Status Description No Information Available Referrals Refer to Reason for Referral Status Appt Date [facility] Referral to Wound Clinic for Patient Declined consult; decreased blood flow in her legs. - - Please contact Pt to schedule appt. - - Please fax appointment date/time to [facility], [phone]. [address] [place] [address] [phone] Layton Reyna Referral to Dr. Graves or Dr. Reyna Scheduled 12/07/2019 specifically for Ophthalmology consult, he works with Dr. Blancas who saw Pt - for evaluation of drug side effects of Plaquenil, Dr. Lisa recommends visula field testing as well. - - Please call Pt to schedule appt. - - Please fax appointment date/time to [facility], . [facility] [address] [place] [address] [phone]
--- NOTE | 2019-12-26 17:49 | ED ---
Adult Trauma - HPI Summary HPI Summary: Patient is a 79 y/o F presenting to the ED for a chief complaint of head injury , right hip pain, and dizziness after a fall that occurred on 12/26/19. Patient is present with her daughter. The dizziness is described as a room-spinning sensation. Patients daughter states that after the fall, patient had nausea and vomiting. Patient was alone when she fell. She denies a loss of consciousness. Patient does not recall why she fell. No aggravating or alleviating factors are reported. PMHx is significant for CVA with residual right-sided weakness for which she takes Plavix. She uses a wheelchair. Patient lives alone. - History of Current Complaint Chief Complaint: EDFall Stated Complaint: FALL PER PT Time Seen by Provider: 12/26/19 17:34 Hx Obtained From: Patient Mechanism of Injury: Fall Loss of Consciousness: no loss of consciousness Onset/Duration: Started Minutes Ago, Traumatic - Fall Onset Severity: Moderate Current Severity: Moderate Pain Intensity: 4 Pain Scale Used: 0-10 Numeric Location: Head, Abdomen/Pelvis - Right hip Aggravating Factor(s): Nothing Alleviating Factor(s): Nothing Associated Signs & Symptoms: Positive: Nausea/Vomiting Related History: Anticoagulants - Plavix - Additional Pertinent History Primary Care Physician: [id number] - Allergy/Home Medications Allergies/Adverse Reactions: Allergies Allergy/AdvReac Type Severity Reaction Status Date / Time bee stings Allergy anaphylactic Uncoded 12/26/19 17:10 shock oxycodone and other opiates Allergy depression Uncoded 12/26/19 17:10 and suicidal Home Medications: Home Medications Atorvastatin* [Lipitor 80 MG*] 80 mg PO QPM 01/20/17 [History Confirmed 12/26/19 ] PARoxetine HCL TAB* [Paxil TAB*] 40 tab PO DAILY 01/20/17 [History Confirmed 07/08] Clopidogrel TAB* [Plavix TAB*] 75 mg PO DAILY 01/04/18 [History Confirmed ] Pantoprazole TAB * [Protonix TAB (NF)] 40 mg PO DAILY 01/04/18 [History Confirmed 12/26/19] Cholecalciferol (Vitamin D3) [Vitamin D3] 2,000 unit PO DAILY 04/20/19 [History Confirmed 12/26/19] Cyanocobalamin (Vitamin B-12) [Vitamin B-12] 1,000 mcg PO EVERY OTHER DAY [History Confirmed 12/26/19] Magnesium Oxide TAB* [MagOx 400 TAB*] 250 mg PO DAILY 04/20/19 [History Confirmed 12/26/19] EPINEPHrine [Epipen 2-Naresh] 0.3 mg IM ONCE PRN 12/26/19 [History Confirmed ] Enalapril TAB* [Vasotec TAB*] 20 mg PO BID 12/26/19 [History Confirmed 12/26/19] Methylphenidate TAB* [Ritalin TAB*] 7.5 mg PO DAILY 12/26/19 [History Confirmed 12/26/19] Multivitamins/Minerals TAB* [Theragran/minerals TAB*] 1 tab PO DAILY 12/26/19 [ History Confirmed 12/26/19] Tolterodine LA (NF) [Detrol LA (NF)] 4 mg PO DAILY 12/26/19 [History Confirmed 12/26/19] PMH/Surg Hx/FS Hx/Imm Hx Previously Healthy: Yes Endocrine/Hematology History: Reports: Hx Anticoagulant Therapy - Plavix, Hx Blood Transfusions - 2000, possibly, Hx Anemia - on iron Denies: Hx Diabetes Cardiovascular History: Reports: Hx Hypercholesterolemia, Hx Hypertension - on meds Denies: Hx Angina, Hx Pacemaker/ICD, Other Cardiovascular Problems/Disorders Respiratory History: Reports: Hx Chronic Obstructive Pulmonary Disease (COPD), Other Respiratory Problems/Disorders - hx tb Denies: Hx Asthma GI History: Reports: Hx Gastroesophageal Reflux Disease Denies: Other GI Disorders History: Reports: Other Problems/Disorders - urinary inc Denies: Hx Chronic Renal Failure, Hx Renal Disease Musculoskeletal History: Reports: Hx Orthopedic Injury, Other Musculoskeletal History - muscle cramps in thighs Sensory History: Reports: Hx Cataracts - left, Hx Contacts or Glasses, Hx Deafness - unknown which ear, Hx Hearing Problem - R ear Denies: Hx Glaucoma, Hx Legally Blind, Hx Hearing Aid, Other Sensory Impairments Opthamlomology History: Reports: Hx Cataracts - left, Hx Contacts or Glasses Denies: Hx Glaucoma, Hx Legally Blind, Other Sensory Impairments EENT History: Reports: Hx Deafness Neurological History: Reports: Hx CVA - Residual right-sided weakness, Hx Headaches, Hx Peripheral Neuropathy, Hx Transient Ischemic Attacks (TIA), Other Neuro Impairments/Disorders - Ruptured aneurysm 2000 Denies: Hx Dementia, Hx Developmental Delay, Hx Migraine, Hx Nerve Disease, Hx Seizures, Hx Spinal Cord Injury Psychiatric History: Reports: Hx Depression - on meds Denies: Hx Panic Disorder - Cancer History Cancer Type, Location and Year: Basal cell carcinoma several over the years Hx Chemotherapy: No Hx Radiation Therapy: No - Surgical History Surgical History: Yes Surgery Procedure, Year, and Place: peg tube placed 2000 r/t stroke. CATARACT left 25 yrs ago. LEFT ELBOW FRACTURE, . RIGHT HIP REPLACEMENT Hx Anesthesia Reactions: No Infectious Disease History: Yes Infectious Disease History: Reports: Hx Tuberculosis - as a child Denies: Hx of Known/Suspected MRSA, Hx Shingles, Hx Known/Suspected VRE, Hx Known/Suspected VRSA, History Other Infectious Disease, Traveled Outside the [place] in Last 30 Days - Family History Known Family History: Positive: Cardiac Disease - Social History Occupation: Retired Lives: Alone Alcohol Use: Daily Alcohol Amount: 2 glasses of wine Daily Hx Substance Use: No Substance Use Type: Reports: None Hx Tobacco Use: Yes Smoking Status (MU): Former Smoker Type: Cigarettes Amount Used/How Often: 1/2 pack of cigaretts/day for 50 years Length of Time of Smoking/Using Tobacco: her whole life until she quit in 2000 - per patient Have You Smoked in the Last Year: No Review of Systems Positive: Vomiting, Nausea Positive: Arthralgia - Right hip Neurological/Mental Status: Other - Positive dizziness Negative: Syncope - LOC All Other Systems Reviewed And Are Negative: Yes Physical Exam - Summary Physical Exam Summary: Appearance: The patient is well-nourished in no acute distress and in no acute pain. Skin: The skin is warm and dry, and skin color reflects adequate perfusion. HEENT: The head is normocephalic and atraumatic. The pupils are equal and reactive. The conjunctivae are clear and without drainage. Nares are patent and without drainage. Mouth reveals moist mucous membranes, and the throat is without erythema and exudate. The external ears are intact. The ear canals are patent and without drainage. The tympanic membranes are intact. No nystagmus. Neck: The neck is supple with full range of motion and non-tender. There are no carotid bruits. There is no neck vein distension. Respiratory: Chest is non-tender. Lungs are clear to auscultation and breath sounds are symmetrical and equal. Cardiovascular: Heart is regular rhythm. Tachycardic. There is no murmur or rub auscultated. There is no peripheral edema and pulses are symmetrical and equal. Abdomen: The abdomen is soft and non-tender. There are normal bowel sounds heard in all four quadrants and there is no organomegaly palpated. Musculoskeletal: There is no back tenderness noted. Extremities are with full range of motion. There is good capillary refill. There is no peripheral edema or calf tenderness elicited. Ecchymosis, swelling, and tenderness over right hip , right leg is shortened slightly. Neurological: Patient is alert and oriented to person, place and time. The patient has symmetrical motor strength in all four extremities. Cranial nerves are grossly intact. Deep tendon reflexes are symmetrical and equal in all four extremities. Psychiatric: The patient has an appropriate affect and does not exhibit any anxiety or depression. Triage Information Reviewed: Yes Vital Signs On Initial Exam: Initial Vitals Temp Pulse Resp BP Pulse Ox 99.2 F 104 16 160/99 95 12/26/19 17:10 12/26/19 17:10 12/26/19 17:10 12/26/19 17:10 12/26/19 17:10 Vital Signs Reviewed: Yes - Samantha Coma Scale Best Eye Response: 4 - Spontaneous Best Motor Response: 6 - Obeys Commands Best Verbal Response: 5 - Oriented Coma Scale Total: 15 Procedures - Sedation Patient Received Moderate/Deep Sedation with Procedure: No Diagnostics - Vital Signs Vital Signs Temp Pulse Resp BP Pulse Ox 12/26/19 17:10 99.2 F 104 16 160/99 95 - Laboratory Result Diagrams: 12/26/19 18:56 12/26/19 18:56 Lab Statement: Any lab studies that have been ordered have been reviewed, and results considered in the medical decision making process. - Radiology Hip/Pelvis X-ray Radiology Interpretation Completed By: ED Physician Summary of Radiographic Findings: Hip/Pelvis X-ray IMPRESSION: prosthesis, no acute fracture. Reviewed and interpreted by Dr. Yoon, pending official radiology report. Brain MRI Radiology Interpretation Completed By: Radiologist Summary of Radiographic Findings: Brain MRI IMPRESSION: No acute intracranial abnormality. Reviewed by Dr. Yoon. - CT Brain CT CT Interpretation Completed By: Radiologist Summary of CT Findings: Brain CT IMPRESSION: 1. No acute intracranial findings. Age-related atrophy and chronic white matter ischemic change. 2. Chronic left basal ganglia lacunar infarct and right frontal lobe encephalomalacia. Reviewed by Dr. Yoon. Adult Trauma Course/Dx - Course Course Of Treatment: Ms. Beaulieu fell today while transferring. She has had a previous stroke and lives alone but is able to transfer well. She hit the back of her head and her right hip and comes in complaining of dizziness and right hip pain. She has a cephalohematoma and tenderness on her right hip with a negative x-ray. She had a negative CT of her brain ruling out a bleed. She is on Eliquis. She did improve somewhat with Zofran and meclizine. I spoke with Dr. Gomez about whether we needed any further imaging and he did not think so and recommended either discharge here if she was unable admission here as she has no bleeding. I spoke with Dr. Hill who requested an MRI scan which was negative. - Diagnoses Provider Diagnoses: Head injury, Contusion of right hip - Physician Notifications Discussed Care Of Patient With: Vishal Hill - At 21:50, Dr. Vishal Hill reviewed the patients case and agrees to admit the patient to [facility] with a diagnosis of right hip contusion and head injury. Time Discussed With Above Provider: 21:50 Instructed by Provider To: Admit As Inpatient Discharge ED - Sign-Out/Discharge Documenting (check all that apply): Patient Departure - Discharge Plan Condition: Stable Disposition: ADMITTED TO [facility] Referrals: Bina Bauer MD [Primary Care Provider] - - Billing Disposition and Condition Condition: STABLE Disposition: Admitted to [facility] - Attestation Statements Document Initiated by Elisha: Yes Documenting Santanaibe: Katheryn Perry Provider For Whom Elisha is Documenting (Include Credential): MD Santana Snowibstef Attestation: Katheryn Hernandez, scribed for Tito Yoon MD on 12/26/19 at 4682. Scribe Documentation Reviewed: Yes Provider Attestation: The documentation as recorded by the Katheryn britt accurately reflects the service I personally performed and the decisions made by me, Tito Yoon MD Status of Scribe Document: Viewed
[2019-12-26 19:13] LABS: INR 1.05 (0.82-1.09)
[2019-12-26 19:17] LABS: ABS Lymphocytes 0.7 10^3/ul (1.0-4.8); ABS Monocytes 0.6 10^3/ul (0-0.8); ABS Neutrophils 5.2 10^3/ul (1.5-7.7); Eosinophil % 0.1 %; Hematocrit 32 % (35-47); Hemoglobin 11.6 g/dL (12.0-16.0); Lymphocyte % 10.3 %; Mean Corpuscular HGB Conc 36 g/dL (31-36); Mean Corpuscular Hemoglobin 39 pg (27-31); Mean Corpuscular Volume 107 fL (80-97); Mean Platelet Volume 6.4 fL (7.4-10.4); Nucleated Red Blood Cells % 0.1; Platelet Count 117 10^3/uL (150-450); Red Blood Count 2.97 10^6 /uL (3.70-4.87); Red Cell Distribution Width 17 % (10-15); White Blood Count 6.5 10^3/uL (3.5-10.8)
[2019-12-26 19:19] LABS: Albumin 4.5 g/dL (3.2-5.2); Albumin/Globulin Ratio 1.8 (1-3); BUN/Creatinine Ratio 35.4 (8-20); EGFR African American 151.4 (>60); EGFR Non-African American 125.1 (>60); Globulin 2.5 g/dL (2-4); Potassium 3.5 mmol/L (3.5-5.0); Total Bilirubin 0.8 mg/dL (0.2-1.0)
[2019-12-26] MEDS ORDERED: Meclizine TAB* 12.5 MG PO ONE (19:49)
[2019-12-26] MEDS ORDERED: Ondansetron INJ* 2 MG/ML VIAL IV ONE (20:50)
[2019-12-26] MEDS ORDERED: Acetaminophen TAB* 325 MG PO PRN (22:46)
[2019-12-26] MEDS ORDERED: Cyclobenzaprine TAB* 10 MG PO PRN (22:46)
[2019-12-26] MEDS ORDERED: NS 0.9% 1000 ML** 1,000 ML IV SCH (23:00)
[2019-12-26 23:01] LABS: Activated Partial Thrombo Time 29.3 seconds (26.0-38.0)
--- NOTE | 2019-12-27 01:59 | HP ---
CC: Dr. Bina Bauer * HISTORY AND PHYSICAL: DATE OF ADMISSION: 12/26/19 PRIMARY CARE PROVIDER: Dr. Bina Bauer. ATTENDING PHYSICIAN WHILE IN THE HOSPITAL: Dr. Hill * (report dictated by Alex Wilson NP). CHIEF COMPLAINT: Fall. HISTORY OF PRESENT ILLNESS: Ms. Beaulieu is a 79-year-old female patient who carries a history of a subarachnoid hemorrhage in the past, CVA, depression, eosinophilic fasciitis, GERD, basal cell carcinoma, hypertension, hyperlipidemia , and history of TIA in the past, who unfortunately today sustained a fall. She is normally wheelchair bound. She has chronic right-sided weakness in the upper and lower extremities from previous stroke. She has some mild dysarthria , which is at baseline and some mild right-sided facial drooping. She has contracture to the right upper extremity, which again is chronic from her stroke. The patient today was in the kitchen and she went to stand up and the next thing she knew she was on the ground. She does not recall the specifics. She is unsure if she tripped. She does not believe she fainted. She says that she did not have urinary incontinence, did not bite her tongue. She remembers that she fell off, was on the floor. She was able to move her way to the phone by crawling and scooting and was able to call her daughter. It took about 25 minutes for the daughter to get there. The patient did vomit after the fall. She did land on her right side. She struck her right oriental orthodox. She struck her right shoulder and her right leg. The patient denied any lightheadedness prior to the fall, but after the fall, she has been noticing she is feeling lightheaded particularly with position change. If she goes to turn her head, she feels like the room is spinning and she has been feeling nauseated. She denies a headache. There has been no worsening of her previous stroke deficits and no new deficits reported. No new facial drooping or weakness to one side was reported and no worsening of her speech and no changes in vision. There was concern because of the fall. She does live alone. She again is wheelchair bound and the fact that she continued to have pain in her right hip, we were asked to evaluate. The patient denied any recent change in meds with the exception Ritalin was increased from 2.5 mg twice a day to 5 mg in the morning and 2.5 at bedtime. She says she has not had any recent fevers or chills, no vomiting with the exception after the fall she vomited once but nothing prior to this, no URI symptoms, no cold symptoms, and no shortness of breath. Because of the fall and again the pain that she was having, we were asked to evaluate for admission. PAST MEDICAL HISTORY: Significant for: 1. Subarachnoid hemorrhage. 2. CVA. 3. Depression. 4. Eosinophilic fasciitis. 5. GERD. 6. Basal cell cancer. 7. Hypertension. 8. Hyperlipidemia. 9. TIA. PAST SURGICAL HISTORY: She had a right total hip arthroplasty. HOME MEDICATIONS: She is takin. Vasotec 10 mg p.o. b.i.d. 2. Ritalin 2.5 mg in the evening, 5 mg in the morning. 3. EpiPen 0.3 mg IM once as needed for her reaction. 4. B12 1000 mcg p.o. every other day. 5. Vitamin D3 2000 units daily. 6. Multivitamin 1 tablet daily. 7. Magnesium oxide 250 mg daily. 8. Protonix 40 mg daily. 9. Plavix 75 mg daily. 10. Lipitor 80 mg daily. 11. Detrol 4 mg p.o. daily. 12. Paxil 40 mg daily. ALLERGIES TO MEDICATIONS: She is sensitive to opiates and morphine analogues. FAMILY HISTORY: Both parents had stroke. SOCIAL HISTORY: Former smoker. She quit in 2000. She does drink 2 glasses of wine at night. She did have 2 glasses before the fall. Surrogate decision maker is her daughter Angi. REVIEW OF SYSTEMS: There is no documented fever. She denied any significant weight change. There is no double vision. She denies having any ear discharge. There was no rhinorrhea. No sore throat. No thyroid enlargement. She denied any chest pain. No orthopnea. No nocturnal dyspnea. There was no abdominal pain. There was 1 episode of vomiting after the fall. No dysuria, no frequency, no seizure or loss of consciousness reported. Review of 14 systems completed, all others negative. PHYSICAL EXAMINATION GENERAL: At this time, Ms. Beaulieu is a 79-year-old female patient. She is sitting in the ED stretcher. She does not appear to be in any acute distress. VITAL SIGNS: Blood pressure 145/96, pulse 99, respirations 22, O2 sat 91% on room air, temperature 99.2. HEENT: Head: Atraumatic. Eyes: EOMs intact. Sclerae anicteric, not pale. No nystagmus noted. Throat: Oral mucosa appears to be moist. No oropharyngeal erythema. NECK: Supple. LUNGS: Clear to auscultation bilaterally. No wheezes, rales, or rhonchi. HEART: Heart sounds S1, S2. Regular rate and rhythm. No murmurs, rubs, or gallops. ABDOMEN: Soft, flat, nontender. Bowel sounds are present. EXTREMITIES: Pulses 2+ throughout. She has contractures in the right upper extremity. She was 4+ at the right hip flexor. She has limited range of motion to the right hip because of pain. She has a large hematoma over the right hip. She does have 5/5 strength in the left upper and left lower extremities. Again she has contracture at the right wrist, hand, and at the right elbow, and because of this, she has no range of motion here. Increased tone was recognized. No peripheral edema. NEUROLOGICAL: She is awake. She is alert. She has mild dysarthria, is at the baseline. Slight facial droop to the right side. She is hemiparetic on the right side, which is again at baseline but she does have 4/5 strength to the right lower extremity, contracture to the right upper extremity. This is near her baseline. No nystagmus is noted. Cranial nerves were intact with the exception of the subtle right facial droop. No gross focal new deficits were noted. SKIN: Intact. DIAGNOSTIC STUDIES/LAB DATA: WBC of 6.5, RBC of 2.97, hemoglobin 11.6, hematocrit 32, platelet count 117. INR 1.05. PTT 29.3. Sodium 139, potassium 3.5, chloride of 101, bicarb 25, BUN 17, creatinine of 0.48, glucose 127, calcium 10. Total bili 0.8, AST 24, ALT 20, alk phos 70. Albumin 4.5. She had a brain CT obtained today, impression: No acute intracranial findings. Age-related atrophy and chronic white matter ischemic change. Chronic left basal ganglia lacunar infarct in the right frontal lobe encephalomalacia. She had a brain MRI obtained today, impression: No acute intracranial abnormality noted. She had a hip pelvis CT obtained today which showed, again I do not see any gross obvious fracture in the right hip. Old medical records were reviewed. ASSESSMENT AND PLAN: Ms. Beaulieu is a 79-year-old female patient that sustained a fall today. She does not remember the specifics of the fall. She will be admitted under observation status for: 1. Fall. Again at this point, I question if she had syncope because she does not remember what happened prior to the fall. There was no prolonged confusion afterwards. She remembers going to the phone to call her daughter. The daughter when she got there felt that her mother was at her baseline. Question if she had syncope. I am going to go ahead and place her on telemetry, check an echo. I will try to obtain orthostatic blood pressures. We will cycle her troponins and get an EKG and will continue to monitor her. I do not believe this is a seizure given the semiology. We will monitor for any further episodes. 2. Right hip pain in the setting of fall. I have ordered a CT of the pelvis to make sure there is no occult fractures that may be causing the pain and I have ordered physical therapy as well and she will be up out of bed to her wheelchair. 3. History of subarachnoid hemorrhage. Again at this point not an active issue. 4. History of cerebrovascular accident. Continue with secondary prevention. She has residual deficits to the right side. 5. Dizziness. I suspect that she may have sustained a concussion and it is reassuring that her MRI was negative. She does have an outpatient neurologist and most likely will need followup. If she does not improve, we can consider consulting Neurology in the morning. 6. Depression. Continue with supportive care. She is on Ritalin and Paxil. We will continue. 7. Gastroesophageal reflux disease. Continue PPI therapy. 8. Hypertension. Continue meds as prescribed. 9. Hyperlipidemia. Continue statin therapy. 10. DVT prophylaxis: I have ordered heparin subcutaneously as she is high risk. 11. Code status: She is a DNR. The daughter will try to bring in the form. 12. Fluids, electrolytes, and nutrition: She can have a heart healthy diet. TIME SPENT: Time spent on the admission was 60 minutes, greater than half the time was spent [id number] with the patient obtaining my history and physical, other half time spent going over the plan of care with the patient and implementing my plan of care. I discussed the plan of care with my attending Dr. Hill. ALEX WILSON NP [id number]/CPS #: [id number] DBEORAH
[2019-12-27 05:40] LABS: INR 1.03 (0.82-1.09)
[2019-12-27 05:49] LABS: ABS Monocytes 0.6 10^3/ul (0-0.8); ABS Neutrophils 1.7 10^3/ul (1.5-7.7); Eosinophil % 0.7 %; Hematocrit 31 % (35-47); Hemoglobin 11.3 g/dL (12.0-16.0); Mean Corpuscular HGB Conc 36 g/dL (31-36); Mean Corpuscular Hemoglobin 39 pg (27-31); Mean Corpuscular Volume 107 fL (80-97); Mean Platelet Volume 6.8 fL (7.4-10.4); Nucleated Red Blood Cells % 0.1; Platelet Count 113 10^3/uL (150-450); Red Blood Count 2.91 10^6 /uL (3.70-4.87); Red Cell Distribution Width 16 % (10-15); White Blood Count 3.4 10^3/uL (3.5-10.8)
[2019-12-27 05:51] LABS: Anion Gap 6 mmol/L (2-11); BUN/Creatinine Ratio 24.6 (8-20); Blood Urea Nitrogen 14 mg/dL (6-24); CO2 Carbon Dioxide 31 mmol/L (22-32); Calcium 9.7 mg/dL (8.6-10.3); Chloride 104 mmol/L (101-111); EGFR African American 124.1 (>60); EGFR Non-African American 102.6 (>60); Glucose 103 mg/dL (70-100); Potassium 3.6 mmol/L (3.5-5.0); Sodium 141 mmol/L (135-145)
[2019-12-27 05:54] LABS: Troponin I 0.01 ng/mL (<0.03)
[2019-12-27] MEDS ORDERED: Heparin VIAL(*) 5000 UNITS/ML VIAL (FIVE THOUSAND) SUBCUT SCH (06:00)
--- NOTE | 2019-12-27 09:30 | ECHO ---
*[facility]* [place] [address] Fax #: [phone] Transthoracic Echocardiogram Patient: Rachele Beaulieu : 1940 Study Date: 12/27/2019 Age: 79 Gender: F HR: 70 bpm Height: 65 in /165.1 cm BSA: 1.54 m^2 Weight: 110.8 lb /50.3 kg BMI: 18.5 kg/m^2 *Counselor Supervisor: * Afshan Willis *Referring Physician: * Alex WilsonReading Physician: * Amarjit Ac MD Indications: Syncope. History: Transient ischemic attack. Risk factors: Former tobacco use. Hypertension. Dyslipidemia. Conclusions Summary: - Left ventricle: Systolic function is normal. The estimated ejection fraction is 55-60%. Wall motion is normal; there are no regional wall motion abnormalities. - Right ventricle: Systolic function is normal. - Mitral valve: There is mild regurgitation. - Aortic valve: Transvalvular velocity is within the normal range. There is no evidence of stenosis. - Tricuspid valve: There is trace regurgitation. - Pulmonary arteries: Systolic pressure is within the normal range, estimated to be 32 mm Hg. - Compared to study of 04/03/17, there is little change. Study data: Transthoracic echocardiogram. Procedure: Transthoracic echocardiography was performed. Image quality was good. Complete 2D, spectral Doppler, and color flow Doppler. Location: Bedside. Patient status: Inpatient. Patient room number: 444-01. Rhythm: Normal sinus rhythm. Findings Left ventricle: The cavity size is normal. Wall thickness is normal. Systolic function is normal. The estimated ejection fraction is 55-60%. Wall motion is normal; there are no regional wall motion abnormalities. Doppler parameters are consistent with abnormal left ventricular relaxation (grade 1 diastolic dysfunction). Right ventricle: The cavity size is at the upper limits of normal. Systolic function is normal. Ventricular septum: The ventricular septum is normal. Left atrium: The atrium is normal in size. Right atrium: The atrium is normal in size. Atrial septum: No defect or patent foramen ovale is identified. Mitral valve: The leaflets are mildly thickened. There is no evidence of stenosis. There is mild regurgitation. Aortic valve: The valve is structurally normal. The valve is trileaflet. Cusp separation is normal. Transvalvular velocity is within the normal range. There is no evidence of stenosis. There is trace regurgitation. Tricuspid valve: The valve is structurally normal. There is no evidence of stenosis. There is trace regurgitation. Pulmonic valve: The valve is structurally normal. There is no evidence of stenosis. There is trace regurgitation. Aorta: The aortic root appears normal. The aortic arch appears normal. Pericardium: There is no significant pericardial effusion. Pulmonary arteries: Systolic pressure is within the normal range, estimated to be 32 mm Hg. Systemic veins: Inferior vena cava: The vessel is normal in size. There is (>= 50%) respiratory change in the IVC dimension. Pulmonary veins: Not well visualized. Measurements Left ventricle Value Ref Aortic valve continued Value Ref VERITO, LAX 3.8 cm 3.8 - 5.2 Mean grad, S 5.0 mm Hg ----- ESD, LAX 2.7 cm 2.2 - 3.5 Peak grad, S 8.0 mm Hg ----- FS, LAX 28 % 27 - 45 GO, VTI 1.80 cm^2 ----- PW, ED, LAX (H) 1.1 cm 0.6 - 0.9 GO, Vmax 1.61 cm^2 ----- E', lat rodolfo, TDI (L) 5.8 cm/sec >=10.0 E/e', lat rodolfo, 7 Mitral valve Value R ef TDI Peak E 0.43 m/sec ----- Peak A 0.55 m/sec ----- LVOT Value Ref Decel time 275 ms ----- Diam, S 1.90 cm Peak E/A ratio 0.8 ----- Area 2.8 cm^2 Peak dhruv, S 0.78 m/sec Pulmonic valve Value Ref Mean grad, S 1 mm Hg Peak v, S 0.71 m/sec ----- SV 48 ml Peak grad, S 2.0 mm Hg ----- Ventricular septum Value Ref Tricuspid valve Value Ref IVS, ED (H) 1.1 cm 0.6 - 0.9 TR peak v 2.61 m/sec <=2 .8 Peak RV-RA grad, S 27 mm Hg ----- Right ventricle Value Ref Max TR dhruv 2.61 m/sec ----- VERITO, LAX 3.1 cm VERITO minor ax, (H) 4.0 cm 1.9 - 3.5 Aortic root Value Ref A4C mid Root diam 3.0 cm <3. 8 Left atrium Value Ref Ascending aorta Value Ref AP dim, ES 3.00 cm 2.70 - AAo AP diam, S 3.0 cm ----- 3.80 ML dim, A4C 3.9 cm Aortic arch Value Ref SI dim, A4C 4.6 cm Arch diam 2.8 cm ----- Vol/bsa, ES, 1-p 28 ml/m^2 11 - 40 A4C Decending aorta Value Ref Sourav peak dhruv 0.59 m/sec ----- Right atrium Value Ref SI dim, ES 4.5 cm 3.4 - 5.3 Inferior vena cava Value Ref ML dim, ES, A4C 3.6 cm 2.6 - 4.4 Diam 1.7 cm ----- SI dim, ES, A4C 4.5 cm 3.4 - 5.3 Aortic valve Value Ref Peak v, S 1.37 m/sec VTI, S 27.1 cm Legend: (L) and (H) angela values outside specified reference range. Prepared and electronically signed by Amarjit Ac MD 12/27/2019 09:29
[2019-12-27 09:54] LABS: TSH (Thyroid Stimulating Horm) 2.39 mcIU/mL (0.34-5.60)
[2019-12-27 10:04] LABS: Folate > 20.00 ng/mL (>3.99)
[2019-12-27] MEDS: PARoxetine HCL TAB* 40 MG PO SCH (10:17)
[2019-12-27] MEDS: Pantoprazole TAB * 40 MG TAB PO SCH (10:17)
[2019-12-27] MEDS: Methylphenidate TAB* 5 MG PO SCH (10:17)
[2019-12-27] MEDS: Oxybutynin XL TAB* 5 MG PO SCH (10:17)
[2019-12-27] MEDS: Enalapril TAB* 5 MG PO SCH ×2 (10:17→22:50)
[2019-12-27] MEDS: Clopidogrel TAB* 75 MG PO SCH (10:18)
[2019-12-27] MEDS: Ondansetron INJ* 2 MG/ML VIAL IV PRN ×2 (11:49)
--- NOTE | 2019-12-27 13:23 | PN ---
Subjective Date of Service: 12/27/19 Interval History: Pt admitted last night. She has occasional dizziness that she reports as a " head spinning" and is adamant that the "room is not spinning". It is provoked sometimes when turning her head. She's had this symptom for years. Denies weakness beyond baseline. Denies fevers, chills, CP, SOB. Has not had dizziness in the hospital. She states she vomited once at home before coming into the hospital. Denies vomiting now but has intermittent nausea. Denies new foods, foods, or sick contacts. Is tolerating food. Denies diarrhea. She does not check her BP at home. Has not been eating less recently. Objective Active Medications: Acetaminophen (Tylenol Tab*) 650 mg PO Q4H PRN PRN Reason: PAIN - MILD Last Admin: 12/27/19 00:00 Dose: 650 mg Atorvastatin Calcium (Lipitor*) 80 mg PO QPM [facility] Clopidogrel Bisulfate (Plavix Tab*) 75 mg PO DAILY [facility] Last Admin: 12/27/19 10:18 Dose: 75 mg Enalapril Maleate (Vasotec Tab*) 10 mg PO BID [facility] Last Admin: 12/27/19 10:17 Dose: 10 mg Enoxaparin Sodium (Lovenox(*)) 30 mg SUBCUT BEDTIME [facility] Methylphenidate HCl (Ritalin Tab*) 5 mg PO DAILY [facility] Last Admin: 12/27/19 10:17 Dose: 5 mg Methylphenidate HCl (Ritalin Tab*) 2.5 mg PO BEDTIME [facility] Ondansetron HCl (Zofran Inj*) 4 mg IV Q6H PRN PRN Reason: NAUSEA Last Admin: 12/27/19 11:49 Dose: 4 mg Oxybutynin Chloride (Ditropan Xl Tab*) 5 mg PO DAILY [facility]; Protocol Last Admin: 12/27/19 10:17 Dose: 5 mg Pantoprazole Sodium (Protonix Tab*) 40 mg PO DAILY [facility] Last Admin: 12/27/19 10:17 Dose: 40 mg Paroxetine HCl (Paxil Tab*) 40 mg PO DAILY [facility] Last Admin: 12/27/19 10:17 Dose: 40 mg Vital Signs - 8 hr 12/27/19 12/27/19 12/27/19 08:00 08:54 10:59 Temperature 97.8 F 98 F Pulse Rate 78 76 Respiratory 16 16 16 Rate Blood Pressure 141/82 139/76 (mmHg) O2 Sat by Pulse 97 95 Oximetry Oxygen Devices in Use Now: None Appearance: frail elderly woman in NAD, alert and interactive Eyes: No Scleral Icterus Ears/Nose/Mouth/Throat: Clear Oropharnyx, Mucous Membranes Moist Neck: NL Appearance and Movements; NL JVP, Trachea Midline Respiratory: Symmetrical Chest Expansion and Respiratory Effort, Clear to Auscultation Cardiovascular: NL Sounds; No Murmurs; No JVD, RRR Abdominal: NL Sounds; No Tenderness; No Distention, No Hepatosplenomegaly Extremities: No Edema Skin: No Rash or Ulcers Neurological: Alert and Oriented x 3, - - mild dysarthia, R facial droop, contracture of R arm, 4/5 strength of RLE, L arm and LLE 5/5 strength Result Diagrams: 12/27/19 05:23 12/27/19 05:23 Assess/Plan/Problems-Billing Assessment: 79W with history of SAH/CVA/TIA c/b right hemiparesis, depression, HTN, who presents after a fall from her wheelchair in the context of alcohol use. - Patient Problems (1) Fall Comment: Pt fell after getting up from her wheelchair, which she does not do frequently. This could have caused orthostatic hypotension, although vitals checked here, seated -> standing, were wnl. Also could be due to alcohol use ( couple glasses of wine per evening). Pt also reports symptoms that are consistent with BPPV, although no nystagmus on exam. TTE/tele wnl. - has acute PT needs, will re-evaluate tomorrow to determine [facility] vs home PT - pt declines other home services - pending OT (2) CVA (cerebral infarction) Comment: 08/2016 - L MCA CVA on MRI - with residual right hemiparesis. Previous work-up was unremarkable for cardioembolic source, but echo did show concentric LVH - and nature of stroke c/w hypertensive disease. - cont home clopidogrel and statin (3) Alcohol use disorder Comment: Has at least 2 glasses/wine per night. Likely reason for macrocytic anemia. - monitor for signs of withdrawal (4) Thrombocytopenia Comment: Intermittent since at least 2011. Vitamin B12 and folate normal. INR/ bili/AST/ALT/sodium normal. Ultrasound since then without evidence for liver disease. Could be due to direct marrow toxicity from alcohol. - check HCV antibody (5) Hypertension Comment: - cont home enalapril 10 bid (6) Depression Comment: - continue home paroxetine and Ritalin (7) DVT prophylaxis Comment: Lovenox SQ daily (8) DNR (do not resuscitate) Comment: see [facility]
[2019-12-27] MEDS ORDERED: Atorvastatin* 80 MG TAB PO SCH (18:00)
[2019-12-27 18:14] LABS: Hepatitis C Antibody Negative (Negative)
[2019-12-27] MEDS ORDERED: Enoxaparin(*) 30 MG/0.3 ML SYR SUBCUT SCH (21:00)
[2019-12-27] MEDS ORDERED: Enoxaparin(*) 40 MG/0.4 ML SYR SUBCUT SCH (21:00)
[2019-12-27] MEDS ORDERED: Methylphenidate TAB* 5 MG PO SCH (21:00)
[2019-12-28] MEDS: Clopidogrel TAB* 75 MG PO SCH (10:15)
[2019-12-28] MEDS: Methylphenidate TAB* 5 MG PO SCH (10:16)
[2019-12-28] MEDS: Oxybutynin XL TAB* 5 MG PO SCH (10:16)
[2019-12-28] MEDS: Enalapril TAB* 5 MG PO SCH (10:16)
[2019-12-28] MEDS: Pantoprazole TAB * 40 MG TAB PO SCH (10:17)
[2019-12-28] MEDS: PARoxetine HCL TAB* 40 MG PO SCH (10:17)
[2019-12-28 15:30] VITALS: BP 131/73
[2019-12-28 15:30] LABS: Urine Appearance Cloudy; Urine Bilirubin Negative (Negative); Urine Blood Negative (Negative); Urine Color Amber; Urine Glucose 1+(50 mg/dL) (Negative); Urine Ketones Trace (Negative); Urine Nitrite Negative (Negative); Urine Protein Negative (Negative); Urine Specific Gravity 1.029 (1.010-1.030); Urine Urobilinogen Negative (Negative)
[2019-12-28 15:48] LABS: Urine Bacteria Absent (Absent); Urine Red Blood Cell Absent (Absent); Urine Squamous Epithelial Cell Present (Absent); Urine White Blood Cell 2+(11-20/hpf) (Absent)
--- NOTE | 2019-12-31 04:06 | DS ---
CC: Dr. Bina Bauer DISCHARGE SUMMARY: DATE OF ADMISSION: 12/26/19 DATE OF DISCHARGE: 12/28/19 PRIMARY CARE PROVIDER: Dr. Bina Bauer. DISCHARGE DIAGNOSES: 1. Syncope, suspect secondary to fall related to either accidental versus alcohol intoxication. 2. History of cerebrovascular accident. 3. History of alcohol dependency. 4. Prior history of depression. 5. History of subarachnoid hemorrhage in the past. 6. History of gastroesophageal reflux disease. 7. History of hypertension. 8. Hyperlipidemia. HOSPITAL COURSE: The patient presented to [facility] on 12/26/19 after a fall at home whe re normally she is wheelchair bound and suffer from history of CVA due to subarachnoid hemorrhage in the past and she has chronic right-sided weakness in her right upper and lower extremity with some mi ld dysarthria. On the day of admission as documented by the HPI, the patient incurred a fall in her kitchen, does not recall the specifics, unsure if she was tripped and unsure if she fainted. There w as no urine or stool incontinence, cannot remember the event that led to before the fall or after the fall. She was able to call for help by calling her daughter. On admission, there was no physical f inding of major head trauma. Vitals were fairly unremarkable and she underwent skeleton survey and fa irly unremarkable for any acute fracture. She was maintained on the medical floor in tele and during her hospital stay, her initial blood work was unremarkable except for anemia, which is chronic with hematocrit of 31 and 32. She has significant elevated MCV, which is chronic. Electrolytes were sign ificant for normal low potassium of 3.5, negative troponin x3. B12 is 691, folate 20, TSH 2.3. Urina lysis was significant for colonization; however, her serum alcohol was 50, which was around 7 p.m. on admission, which makes me wonder that the patient was in fact drinking earlier in the morning becaus e she was in the floor and by the time came to the ER, it was 7 p.m. and her alcohol level was still 50. When the patient was questioned, she admits only for 1 to 2 beers a day. She was unremarkable o n tele with blood work. In the emergency room, she did have skeletal survey, which included CT of the brain that shows no acute intracranial bleed, age-related atrophy with chronic left basal chapin glia lacunar infarct, and her hip actually on the right shows normally located hemiprosthesis on the right without any evidence of dislocation. An MRI of the brain, which was done on 12/26/19 shows no acute abnormality. Therefore, she was seen a nd evaluated by me on 12/28/19 and I deemed her stable for discharge home. PHYSICAL EXAMINATION ON DISCHARGE: Her vital signs were as follows: Temperature 98.1, pulse 100, re spiratory rate is 18, saturation 95%, blood pressure 131/73. General: She is awake, alert, pleasant, no apparent distress. Head and Neck: Normocephalic, atraumatic. Supple. She does have right upper extremity weakness, mild dysarthria. Otherwise, no neurological deficit that I knew from her baseli ne. Abdomen is soft and nontender. Extremities: No edema. DIAGNOSTIC STUDIES: Echocardiogram dated 12/27/19 revealed ejection fraction of 55% to 60%, normal R V and LV function, no wall motion abnormality, no significant valvular disease. CT of the pelvis without contrast dated 12/26/19, right hip arthroplasty with some artifact, lateral hip tissue contusion, otherwise, no fracture. MRI of the brain, 12/26/19: No acute abnormality. Right hip x-ray two-view in the pelvis shows normally located bipolar hemiprosthesis as well as sacro iliac joint, no evidence of fracture or dislocation, some mild soft tissue swelling. CT of the brain, 12/26/19: No acute intracranial bleed, age-related atrophy with chronic left basal ganglia lacunar infarct and right frontal lobe encephalomalacia. Diagnostic study including urine cultures, no growth. DISCHARGE MEDICATIONS: Continued home medications: 1. Lipitor 80. 2. Paxil 40 daily. 3. Plavix 75 daily. 4. Protonix 40 daily. 5. Vitamin D 2000 units daily. 6. Magnesium oxide 250 daily. 7. Vitamin B12 1000 mcg daily. 8. EpiPen as needed. 9. Multivitamin daily. 10. Ritalin 5 every day. 11. Enalapril 10 b.i.d. 12. Detrol LA 4 mg daily. 13. Ritalin 2.5 at bedtime. DISCHARGE INSTRUCTIONS: Follow up with the primary care provider, Dr. Bina Bauer, for an appoin tment in 1 to 2 weeks and visiting nurse service referral. DISCHARGE DISPOSITION: Home. DISCHARGE CONDITION: Stable. [id number]/CPS #: [id number]
== END 2019-12-28 17:00 | disposition home or self-care (01) ==
LOC: ED 17:06 → MEDTELE 22:42
PROVIDERS: ADMIT Nurse Practitioner Family; ATTEND Internal Medicine
DX: S09.90XA Unspecified injury of head, initial encounter (principal); S70.01XA Contusion of right hip, initial encounter; W19.XXXA Unspecified fall, initial encounter; Y92.9 Unspecified place or not applicable; R11.2 Nausea with vomiting, unspecified; E78.00 Pure hypercholesterolemia, unspecified; D69.6 Thrombocytopenia, unspecified; I10 Essential (primary) hypertension; J44.9 Chronic obstructive pulmonary disease, unspecified; E78.5 Hyperlipidemia, unspecified; F32.9 Major depressive disorder, single episode, unspecified; K21.9 Gastro-esophageal reflux disease without esophagitis; Z86.73 Personal history of transient ischemic attack (TIA), and cerebral infarction without residual deficits; Z79.899 Other long term (current) drug therapy; Z88.5 Allergy status to narcotic agent; Z79.01 Long term (current) use of anticoagulants; Z85.828 Personal history of other malignant neoplasm of skin; Z87.891 Personal history of nicotine dependence; Z86.79 Personal history of other diseases of the circulatory system; Z88.6 Allergy status to analgesic agent
CPT/HCPCS: 36415; 70450; 70551; 72192; 80048; 80053; 80320; 81003; 81015; 82607; 82746; 84443; 84484; 85025; 85610; 85730; 86803; 87086; 93005; 93306; 96361; 96372; 96374; 96376; 99284; A9270-GY; G0378; G0480; J1644; J1650; J2405

== ENCOUNTER 2023-03-27 23:19 | Inpatient (IN) ==
[2023-03-28 00:32] LABS: Albumin 4.3 g/dL (3.2-5.2); Albumin/Globulin Ratio 1.5 (1-3); C Reactive Protein 1.65 mg/L (<8.01); Calcium 9.4 mg/dL (8.6-10.3); Creatinine, Serum 0.6 mg/dL (0.51-0.95); Globulin 2.8 g/dL (2-4); Magnesium 1.4 mg/dL (1.9-2.7); Total Protein 7.1 g/dL (6.4-8.9); eGFR CKD-EPI 90.1 (>60)
[2023-03-28 01:04] LABS: Hematocrit 22.3 % (35-45); Hemoglobin 8.1 g/dL (11.5-14.3); Mean Corpuscular Hemoglobin 42.3 pg (27-33); Mean Corpuscular Hgb Conc 36.1 g/dL (31-36); Mean Corpuscular Volume 117.1 fL (80-97); Red Blood Count 1.91 10^6/uL (3.63-4.92); Red Cell Distribution Width 18.4 % (12-17); TSH Ultra Thyroid Stim Horm 5.45 mcIU/mL (0.34-5.60); White Blood Count 6.8 10^3/uL (3.8-11.8)
[2023-03-28 01:27] LABS: Macrocytosis 2+
[2023-03-28 01:28] LABS: ABS Lymphocytes 0.5 10^3/uL (1.0-4.8); ABS Monocytes 0.5 10^3/uL (0.0-0.9); ABS Neutrophils 5.8 10^3/uL (1.5-7.6); ABS Nucleated RBC 0.02 10^3/ul; Lymphocyte % 6.7 %; Mean Platelet Volume 7.4 fL (7.5-11.2); Nucleated Red Blood Cells % 0.3 /100 WBC (0.0-0.4); Platelet Count 43 10^3/uL (150-450)
[2023-03-28 01:43] LABS: High Sensitivity Troponin 1 Hr 19 pg/mL (<15)
[2023-03-28] MEDS ORDERED: Al Hydrox/Mg Hydrox/Simet LIQ 30 ML UDC PO ONE (02:45)
[2023-03-28] MEDS ORDERED: Lactated Ringers 1000 ml BAG 1,000 ML IV ONE (03:17)
[2023-03-28] MEDS ORDERED: Magnesium Sulf 4 GM/100 ML IV 4,000 MG/100 ML BAG IVPB ONE (05:43)
[2023-03-28 05:56] LABS: Urine Appearance Clear; Urine Bilirubin Negative (Negative); Urine Blood Negative (Negative); Urine Color Yellow; Urine Glucose Negative (Negative); Urine Ketones Trace (Negative); Urine Nitrite Negative (Negative); Urine Protein Negative (Negative); Urine Specific Gravity 1.018 (1.002-1.030); Urine Urobilinogen Negative (Negative)
[2023-03-28] MEDS: Multivitamins/Minerals TAB PO SCH (09:34)
[2023-03-28] MEDS: Enoxaparin 40 MG/0.4 ML SYR SUBCUT SCH (09:37)
[2023-03-28 12:55] LABS: Folate 15.32 ng/mL (5.90-24.80)
[2023-03-28 13:18] LABS: Corrected Retic Count 2.2 % (0.5-1.5); Hematocrit for Retic CNT 21.4 % (35-45); Immature Retic Fraction 0.43; RBC Retic Count 1.76 10^6/ul (3.63-4.92)
[2023-03-29 06:21] LABS: ABS Eosinophils 0.1 10^3/uL (0.0-0.5); ABS Lymphocytes 1.1 10^3/uL (1.0-4.8); ABS Monocytes 0.5 10^3/uL (0.0-0.9); ABS Neutrophils 1.4 10^3/uL (1.5-7.6); ABS Nucleated RBC 0.01 10^3/ul; Hemoglobin 8.3 g/dL (11.5-14.3); Lymphocyte % 36.7 %; Mean Corpuscular Hemoglobin 42.1 pg (27-33); Nucleated Red Blood Cells % 0.2 /100 WBC (0.0-0.4); Platelet Count 33 10^3/uL (150-450); Red Blood Count 1.97 10^6/uL (3.63-4.92); Red Cell Distribution Width 18.3 % (12-17)
[2023-03-29 06:35] LABS: Calcium 8.3 mg/dL (8.6-10.3); Creatinine, Serum 0.5 mg/dL (0.51-0.95); Potassium 3.6 mmol/L (3.5-5.0); eGFR CKD-EPI 94.2 (>60)
[2023-03-29] MEDS: Enoxaparin 40 MG/0.4 ML SYR SUBCUT SCH (08:53)
[2023-03-29] MEDS: Multivitamins/Minerals TAB PO SCH (08:54)
[2023-03-30 06:09] LABS: ABS Eosinophils 0.1 10^3/uL (0.0-0.5); ABS Lymphocytes 1.1 10^3/uL (1.0-4.8); ABS Monocytes 0.6 10^3/uL (0.0-0.9); ABS Neutrophils 1.5 10^3/uL (1.5-7.6); Eosinophil % 1.8 %; Hematocrit 22.2 % (35-45); Hemoglobin 8.1 g/dL (11.5-14.3); Lymphocyte % 33.8 %; Mean Corpuscular Hemoglobin 42.8 pg (27-33); Mean Corpuscular Hgb Conc 36.4 g/dL (31-36); Mean Corpuscular Volume 117.6 fL (80-97); Mean Platelet Volume 7.4 fL (7.5-11.2); Platelet Count 38 10^3/uL (150-450); Red Blood Count 1.89 10^6/uL (3.63-4.92); Red Cell Distribution Width 18.3 % (12-17); White Blood Count 3.3 10^3/uL (3.8-11.8)
[2023-03-30 06:12] LABS: Calcium 8.7 mg/dL (8.6-10.3); Creatinine, Serum 0.54 mg/dL (0.51-0.95); Potassium 3.6 mmol/L (3.5-5.0); eGFR CKD-EPI 92.4 (>60)
[2023-03-30] MEDS: Multivitamins/Minerals TAB PO SCH (08:23)
[2023-03-30 09:00] LABS: Ferritin 104.7 ng/mL (11-307)
[2023-03-30] MEDS ORDERED: Potassium EFFERVES 25 meq TAB PO ONE (09:01)
[2023-03-31 06:51] LABS: ABS Eosinophils 0.1 10^3/uL (0.0-0.5); ABS Lymphocytes 1.1 10^3/uL (1.0-4.8); ABS Monocytes 0.7 10^3/uL (0.0-0.9); ABS Neutrophils 2.5 10^3/uL (1.5-7.6); ABS Nucleated RBC 0.01 10^3/ul; Eosinophil % 1.4 %; Hematocrit 23.5 % (35-45); Hemoglobin 8.6 g/dL (11.5-14.3); Lymphocyte % 24.8 %; Mean Corpuscular Hemoglobin 42.8 pg (27-33); Mean Corpuscular Hgb Conc 36.5 g/dL (31-36); Mean Corpuscular Volume 117.1 fL (80-97); Mean Platelet Volume 7.6 fL (7.5-11.2); Nucleated Red Blood Cells % 0.2 /100 WBC (0.0-0.4); Platelet Count 41 10^3/uL (150-450); Red Blood Count 2.01 10^6/uL (3.63-4.92); Red Cell Distribution Width 18.1 % (12-17); White Blood Count 4.3 10^3/uL (3.8-11.8)
[2023-03-31] MEDS: Multivitamins/Minerals TAB PO SCH (09:03)
[2023-03-31] MEDS ORDERED: Lidocaine 2% PF 5 ML VIAL INJ ONE (10:29)
[2023-03-31] MEDS ORDERED: Lorazepam PYXIS KEY PRN (10:30)
[2023-03-31] MEDS ORDERED: Morphine 2 MG/ML SYRINGE IV ONE (10:30)
[2023-03-31] MEDS ORDERED: LORazepam 2 mg VIAL 1 ml IV PUSH ONE (10:30)
[2023-03-31 18:37] LABS: Anaplasma phagocytophilum Negative (Negative); B. miyamotoi PCR, B Negative (Negative); Babesia divergens/MO-1 Negative (Negative); Babesia ducani Negative (Negative); Ehrlichia chaffeensis Negative (Negative); Ehrlichia ewingii/canis Negative (Negative); Ehrlichia muris eauclairensis Negative (Negative)
[2023-04-01 06:18] LABS: ABS Eosinophils 0.1 10^3/uL (0.0-0.5); ABS Lymphocytes 0.8 10^3/uL (1.0-4.8); ABS Monocytes 0.6 10^3/uL (0.0-0.9); ABS Neutrophils 1.9 10^3/uL (1.5-7.6); Eosinophil % 1.6 %; Hemoglobin 7.4 g/dL (11.5-14.3); Lymphocyte % 24.6 %; Mean Corpuscular Hemoglobin 42.7 pg (27-33); Mean Corpuscular Hgb Conc 36.9 g/dL (31-36); Mean Corpuscular Volume 115.8 fL (80-97); Mean Platelet Volume 7.3 fL (7.5-11.2); Nucleated Red Blood Cells % 0.1 /100 WBC (0.0-0.4); Platelet Count 38 10^3/uL (150-450); Red Blood Count 1.73 10^6/uL (3.63-4.92); Red Cell Distribution Width 18.3 % (12-17); White Blood Count 3.4 10^3/uL (3.8-11.8)
[2023-04-01] MEDS: Multivitamins/Minerals TAB PO SCH (09:02)
[2023-04-02 09:50] VITALS: BP 130/74
[2023-04-02 11:42] LABS: Rapid COVID-19 Molecular Undetected (Undetected)
[2023-04-02] MEDS: Multivitamins/Minerals TAB PO SCH ×2 (12:13→12:17)
[2023-04-07 08:55] LABS: MDS (FISH) Result Summary Normal
== END 2023-04-02 14:10 | DRG 809 ==
LOC: ED 23:19 → EDHOLD 23:19 → SUATTDRO 03-28 06:12 → EDHOLD 03-28 09:30 → MED 03-28 10:57 → SUATTDRO 03-30 14:01
PROVIDERS: ADMIT Student in an Organized Health Care Education/Training Program; ATTEND Hospitalist